=== PATIENT | male | born 1950 | race Caucasian/White ===

== ENCOUNTER → 2016-03-22 | Outpatient (CLI) | payer BC, MEDICARE, OTHER ==
[~2016-03-22] MED LIST: /FEXO18TA PO; /PANT40TA PO; ASPI81TA83 PO; LEVETIRACETAM PO; PANT40IN IV; PAXI20TA PO; PROP10TAB PO; TRIC145T19 PO; VERA80TA PO; XANA0.25 PO
--- NOTE | 2016-03-25 09:58 | SLEEPCENT ---
DATE OF PROCEDURE: 03/24/2016 REQUESTING PROVIDER: Madison Webb NP INTERPRETATION: Nocturnal polysomnography was performed for the titration of pressure therapy in this patient with obstructive sleep apnea syndrome, apnea-hypopnea index of 46.8. For testing, the patient was fit with a [employer] Simplus full face mask of medium size, 4 cm of water pressure were applied to the circuit and the lights were extinguished. 7 hours and 29 minutes of data were reviewed. There were 304 minutes of sleep identified. Sleep latency was prolonged at 70 minutes. Rapid eye movement (REM) latency was prolonged at 143 minutes. Sleep architecture improved late in the study with optimal pressure therapy and there was evidence of REM rebound appreciated. Overall sleep efficiency 68.2% due to a period of wake between 2:30 and 3:15. The patient's electrocardiogram (EKG) showed a sinus rhythm with an average heart rate of 63 beats per minute. Electroencephalogram (EEG) showed reasonably normal waveforms for awake and sleep. Respiratory events were found best palliated with a CPAP to a pressure of +9. CPAP tolerance was good. There was minimal limb activity. The remaining measures of sleep physiology were normal. IMPRESSION: 1. Obstructive sleep apnea syndrome (G47.33). RECOMMENDATIONS: Nightly use of pressure therapy at 9 cm of water.
== END ==
LOC: M SLEEP 20:00
PROVIDERS: ATTEND Nurse Practitioner Adult Health
DX: G47.33 Obstructive sleep apnea (adult) (pediatric) (principal)

== ENCOUNTER → 2016-09-24 | Outpatient (REF) | payer MEDICARE ==
[~2016-09-24] MED LIST changes: +CAND8TA PO; +FLOM5CAP PO; +NAPR500T3 PO
== END ==
LOC: M LAB REF 12:58
PROVIDERS: ATTEND Family Medicine
DX: E83.52 Hypercalcemia (principal)

== ENCOUNTER → 2016-10-21 | Outpatient (CLI) | payer MEDICARE ==
--- NOTE | 2016-10-21 12:36 | REP ---
Renal ultrasound, stat request for urinary obstruction: The kidneys are normal size. The right kidney measures 14.0 x 6.4 x 6.6 cm. Left kidney measures 13.2 by 5.4 x 4.7 cm. Renal cortical echogenicity is normal bilaterally. There is no hydronephrosis on the right on the left. There are no renal calculi. No renal masses or cysts. Bladder ultrasound: With color Doppler assessment there are bilateral ureteral jets into the urinary bladder. The bladder is incompletely distended, containing only 83 ml of 06/14 precluding evaluation of the bladder wall. The prostate appears enlarged. Impression: There is no hydronephrosis. There are bilateral ureteral jets into the urinary bladder. There are no renal calculi, masses or cysts. The bladder is incompletely distended, containing only 83 ml of fluid. The prostate appears enlarged. Signed by Eduardo Shah MD 10/21/2016 12:27 P
== END ==
LOC: M RAD 10:14
PROVIDERS: ATTEND Family Medicine
DX: N13.9 Obstructive and reflux uropathy, unspecified (principal)

== ENCOUNTER 2016-12-26 13:29 | Emergency (ER) | payer MEDICARE ==
[~2016-12-26] VITALS: Ht 162.6 cm; Wt 87.7 kg
[~2016-12-26 13:29] MED LIST changes: -CAND8TA PO; -FLOM5CAP PO; -NAPR500T3 PO
[2016-12-26 13:30] VITALS: BP 123/67
[2016-12-26] MEDS ORDERED: FLOM5CAP PO (13:44)
[2016-12-26] MEDS ORDERED: CAND8TA PO (13:44)
[2016-12-26] MEDS ORDERED: KETOROLAC 60 MG/2 ML VIAL (J1885) IM ONE (15:30)
[2016-12-26] MEDS ORDERED: NAPR500T3 PO (16:07)
== END 2016-12-26 16:13 | disposition home or self-care (01) ==
LOC: M ED 13:29
DX: S39.012A Strain of muscle, fascia and tendon of lower back, initial encounter (principal); F41.9 Anxiety disorder, unspecified; F32.9 Major depressive disorder, single episode, unspecified; E78.5 Hyperlipidemia, unspecified; K21.9 Gastro-esophageal reflux disease without esophagitis; X58.XXXA Exposure to other specified factors, initial encounter; Y92.9 Unspecified place or not applicable; Y99.9 Unspecified external cause status; Y93.9 Activity, unspecified; Z87.442 Personal history of urinary calculi; Z88.0 Allergy status to penicillin; Z87.891 Personal history of nicotine dependence; Z79.899 Other long term (current) drug therapy
CPT/HCPCS: 96372; 99282; J1885

== ENCOUNTER → 2017-01-26 | Outpatient (REF) | payer MEDICARE ==
[~2017-01-26] MED LIST changes: +CAND8TA PO; +FLOM5CAP PO; +NAPR500T3 PO
[2017-01-26 17:55] LABS: IONIZED CALCIUM 4.9 MG/DL (4.5-5.3)
== END ==
LOC: M LAB REF 16:30
PROVIDERS: ATTEND Family Medicine
DX: E83.52 Hypercalcemia (principal)

== ENCOUNTER → 2018-03-04 | Outpatient (CLI) | payer MEDICARE ==
[~2018-03-04] MED LIST changes: +FLOM0.4C39 PO; -FLOM5CAP PO; +NAPR-885 PO; -NAPR500T3 PO
--- NOTE | 2018-03-04 19:58 | REP ---
LEFT ELBOW, FOUR VIEWS: HISTORY: Pain. There is no acute fracture or dislocation. The joint space is normal in appearance. Impression: There is no acute fracture or dislocation. Electronically Signed by José Miguel Lima MD 03/04/2018 08:01 P
== END ==
LOC: M WUC 17:18
PROVIDERS: ATTEND Physician Assistant
DX: M25.522 Pain in left elbow (principal)

== ENCOUNTER → 2019-01-03 | Outpatient (CLI) | payer MEDICARE ==
[~2019-01-03] MED LIST changes: -/PANT40TA PO; +ASPI81TA26 PO; +ATAC8TAB PO; -CAND8TA PO; +CLON0.5T17 PO; +CLON1TAB17 PO; +KEPP1TAB PO; +METF500T13 PO; +PARO20TA4 PO; +PARO40TA3 PO; +PROT1TAB2 PO; +TRIC145T22 PO; +VERA40TA PO; +VERAP80TA PO; +ZOMI2.5T4 PO
[2019-01-03 14:56] LABS: BASO % 0.4 % (0.0-1.0); EOS # 0.2 10^3/uL (0.0-0.5); EOS % 2.8 % (0.0-3.0); LYMPH # 2.1 10^3/uL (1.5-5.0); LYMPH % 30.1 % (24.0-44.0); MEAN CORPUSCULAR HEMOGLOBIN 30.2 pg (27.0-33.0); MEAN CORPUSCULAR HGB CONC 34.1 g/dl (32.0-36.5); MEAN CORPUSCULAR VOLUME 88.7 fl (80.0-96.0); MONO # 0.5 10^3/uL (0.0-0.8); MONO % 7.8 % (0.0-5.0); NEUTROPHILS % 58.5 % (36.0-66.0); PLATELET COUNT, AUTOMATED 235 10^3/uL (150-450); RED BLOOD COUNT 4.96 10^6/uL (4.30-6.10); WHITE BLOOD COUNT 6.9 10^3/uL (4.0-10.0)
[2019-01-03 15:22] LABS: ALBUMIN 3.8 GM/DL (3.2-5.2); ALT/SGPT 28 U/L (12-78); BILIRUBIN,TOTAL 0.4 MG/DL (0.2-1.0); BLOOD UREA NITROGEN 24 MG/DL (7-18); C REACTIVE PROTEIN QUANTITATIV < 0.30 MG/DL (0.00-0.30); CALCIUM LEVEL 9.6 MG/DL (8.8-10.2); CARBON DIOXIDE LEVEL 27 MEQ/L (21-32); CHLORIDE LEVEL 105 MEQ/L (98-107); CREATININE FOR GFR 1.62 MG/DL (0.70-1.30); GLOMERULAR FILTRATION RATE 45.5 (>49); GLUCOSE, FASTING 308 MG/DL (70-100); POTASSIUM SERUM 4.5 MEQ/L (3.5-5.1); SODIUM LEVEL 138 MEQ/L (136-145); TOTAL PROTEIN 6.9 GM/DL (6.4-8.2)
[2019-01-04 09:37] LABS: CA19-9 TUMOR MARKER,CARBOHYDRA 8.2 U/ML (<35.0)
== END ==
LOC: M LAB 14:20
PROVIDERS: ATTEND Internal Medicine Gastroenterology
DX: R10.13 Epigastric pain (principal); R63.4 Abnormal weight loss

== ENCOUNTER → 2019-01-05 | Outpatient (CLI) | payer MEDICARE ==
[~2019-01-05] MED LIST changes: +GASTROGRAFIN SOLUTION 30ML (Q9963) As Ordered ONE; +ISOVUE-370 76% 100ML VIAL (Q9967) As Ordered ONE
--- NOTE | 2019-01-05 14:39 | REP ---
Epigastric pain and weight loss. COMPARISON: 03/24/2010 and 12/19/2005. CONTRAST: 100 mL Isovue-370. The lung bases are clear and unchanged. The liver, gallbladder, spleen, pancreas, adrenal glands, and kidneys are within normal limits. The abdominal and para-aortic regions are within normal limits. The bowel loops and their mesenteries are within normal limits. There is no free fluid or free air. There is no intra-abdominal mass or adenopathy. CT PELVIS: The bowel loops and their mesenteries are within normal limits. There is no mass or adenopathy. There is no free fluid or free air. Bone window technique throughout the exam shows the osseous structures to be within normal limits for the patient's age. IMPRESSION: CT findings, as described above, are within normal limits. Electronically Signed by Jaswant Davidson DO 01/05/2019 04:30 P
== END ==
LOC: M RAD 08:14
PROVIDERS: ATTEND Internal Medicine Gastroenterology
DX: R10.13 Epigastric pain (principal); R63.4 Abnormal weight loss
CPT/HCPCS: 74177; Q9963; Q9967

== ENCOUNTER 2019-01-10 09:33 | Day surgery (SDC) | payer MEDICARE ==
[~2019-01-10] VITALS: Ht 162.6 cm; Wt 91.2 kg
[~2019-01-10 09:33] MED LIST changes: -GASTROGRAFIN SOLUTION 30ML (Q9963) As Ordered ONE; -ISOVUE-370 76% 100ML VIAL (Q9967) As Ordered ONE
[2019-01-10] MEDS ORDERED: PROPOFOL 200 MG/20 ML VIAL As Ordered ONE (10:05)
[2019-01-10] MEDS ORDERED: LIDOCAINE 2% INJ 100 MG/5 ML SDV (FOR ANES.) As Ordered ONE (10:05)
[2019-01-10] MEDS ORDERED: NS 1,000 ML IV ONE (10:45)
[2019-01-10] MEDS ORDERED: fentaNYL 100 MCG/2 ML INJECTION (J3010) As Ordered ONE (11:07)
--- NOTE | 2019-01-10 11:47 | ROOR ---
Patient Name: Ganesh Guerra Procedure Date: 01/10/2019 11:07 AM Date of : 1950 Age: 68 Room: [facility] Gender: Male Note Status: Finalized Procedure: Upper Endoscopy + Biopsies Indications: Epigastric abdominal pain, Heartburn, Weight loss Providers: Davon Olivo MD Referring MD: Mio Haji MD Requesting Provider: Medicines: Monitored Anesthesia Care Complications: No immediate complications. Procedure: Pre-Anesthesia Assessment: - The heart rate, respiratory rate, oxygen saturations, blood pressure, adequacy of pulmonary ventilation, and response to care were monitored throughout the procedure. The Endoscope was introduced through the mouth, and advanced to the second part of duodenum. The upper GI endoscopy was accomplished without difficulty. The patient tolerated the procedure well. Findings: The Z-line was regular and was found 40 cm from the incisors. Multiple biopsies were obtained with cold forceps for evaluation to rule out Chen's Esophagus randomly at the gastroesophageal junction. A small hiatal hernia was present. No other significant abnormalities were identified in a careful examination of the stomach. Biopsies were taken with a cold forceps in the gastric antrum for Helicobacter pylori testing. The examined duodenum was normal. The exam was otherwise without abnormality. Impression: - Z-line regular, 40 cm from the incisors. - Small hiatal hernia. - Normal examined duodenum. - The examination was otherwise normal. - Multiple biopsies were obtained at the gastroesophageal junction. - Biopsies were taken with a cold forceps for Helicobacter pylori testing. - The examination was otherwise normal. Recommendation: - Patient has a contact number available for emergencies. The signs and symptoms of potential delayed complications were discussed with the patient. Return to normal activities tomorrow. Written discharge instructions were provided to the patient. - High fiber diet. - Discharge patient to home. - Continue present medications. - Await pathology results. - Telephone GI clinic for pathology results in 1 week. - Return to referring physician. - The findings and recommendations were discussed with the patient's family. Davon Olivo MD Davon Olivo MD 01/10/2019 11:47:16 AM Electronically signed by Davon Olivo MD Number of Addenda: 0 Note Initiated On: 01/10/2019 11:07 AM Estimated Blood Loss: Estimated blood loss: none.
--- NOTE | 2019-01-10 11:50 | ROOR ---
Patient Name: Ganesh Guerra Procedure Date: 01/10/2019 11:07 AM Date of : 1950 Age: 68 Room: [facility] Gender: Male Note Status: Finalized Procedure: Total Colonoscopy to Cecum + Cold Snare Polypectomy Indications: Change in bowel habits, Weight loss Providers: Davon Olivo MD Referring MD: Mio Haji MD Requesting Provider: Medicines: Monitored Anesthesia Care Complications: No immediate complications. Procedure: Pre-Anesthesia Assessment: - The heart rate, respiratory rate, oxygen saturations, blood pressure, adequacy of pulmonary ventilation, and response to care were monitored throughout the procedure. The Colonoscope was introduced through the anus and advanced to the cecum, identified by appendiceal orifice and ileocecal valve. The colonoscopy was performed without difficulty. The patient tolerated the procedure well. The quality of the bowel preparation was excellent. Findings: The perianal and digital rectal examinations were normal. Non-bleeding internal hemorrhoids were found during retroflexion. The hemorrhoids were small and Grade I (internal hemorrhoids that do not prolapse). Scattered small-mouthed diverticula were found in the recto-sigmoid colon, sigmoid colon and descending colon. Two sessile polyps were found in the transverse colon. The polyps were small in size. These polyps were removed with a cold snare. Resection and retrieval were complete. The exam was otherwise without abnormality on direct and retroflexion views. Impression: - Non-bleeding internal hemorrhoids. - Diverticulosis in the recto-sigmoid colon, in the sigmoid colon and in the descending colon. - Two small polyps in the transverse colon, removed with a cold snare. Resected and retrieved. - The examination was otherwise normal on direct and retroflexion views. - The exam was otherwise normal to the cecum. Recommendation: - Patient has a contact number available for emergencies. The signs and symptoms of potential delayed complications were discussed with the patient. Return to normal activities tomorrow. Written discharge instructions were provided to the patient. - High fiber diet. - Discharge patient to home. - Continue present medications. - Await pathology results. - Telephone GI clinic for pathology results in 1 week. - Return to referring physician. - The findings and recommendations were discussed with the patient's family. Davon Olivo MD Davon Olivo MD 01/10/2019 11:49:59 AM Electronically signed by Davon Olivo MD Number of Addenda: 0 Note Initiated On: 01/10/2019 11:07 AM Estimated Blood Loss: Estimated blood loss: none.
[2019-01-10 12:16] VITALS: BP 107/65
== END 2019-01-10 12:19 | disposition home or self-care (01) ==
LOC: M OPP 09:33
PROVIDERS: ATTEND Internal Medicine Gastroenterology
DX: K64.0 First degree hemorrhoids (principal); D12.3 Benign neoplasm of transverse colon; R19.4 Change in bowel habit; R63.4 Abnormal weight loss; K57.30 Diverticulosis of large intestine without perforation or abscess without bleeding; K44.9 Diaphragmatic hernia without obstruction or gangrene; R10.13 Epigastric pain; Z79.82 Long term (current) use of aspirin; Z79.84 Long term (current) use of oral hypoglycemic drugs; Z79.899 Other long term (current) drug therapy; Z88.0 Allergy status to penicillin; Z87.891 Personal history of nicotine dependence
CPT/HCPCS: 43239; 45385; 88305; J3010

== ENCOUNTER → 2019-07-06 | Outpatient (CLI) | payer MEDICARE ==
[2019-07-06 16:09] LABS: HEMATOCRIT 43.3 % (42.0-52.0); HEMOGLOBIN 14.3 g/dl (13.5-17.5); MEAN CORPUSCULAR HEMOGLOBIN 29.5 pg (27.0-33.0); MEAN CORPUSCULAR VOLUME 89.5 fl (80.0-96.0); PLATELET COUNT, AUTOMATED 219 10^3/uL (150-450); RED BLOOD COUNT 4.84 10^6/uL (4.30-6.10); WHITE BLOOD COUNT 5.6 10^3/uL (4.0-10.0)
[2019-07-06 16:54] LABS: ALBUMIN 3.6 GM/DL (3.2-5.2); BILIRUBIN,TOTAL 0.4 MG/DL (0.2-1.0); CALCIUM LEVEL 9.1 MG/DL (8.8-10.2); CHOLESTEROL RISK RATIO 3.075 (<5); CREATININE FOR GFR 1.54 MG/DL (0.70-1.30); GLOMERULAR FILTRATION RATE 48.2 (>49); POTASSIUM SERUM 4.3 MEQ/L (3.5-5.1); THYROID STIMULATING HORMONE 1.38 uIU/ML (0.358-3.740); TOTAL PROTEIN 6.6 GM/DL (6.4-8.2)
[2019-07-06 16:57] LABS: MALB URINE SIEMENS 22.2 MG/L; MAU/CREAT RATIO 7.1 MCG/MG (0.0-30.0)
== END ==
LOC: M WUC 12:05
PROVIDERS: ATTEND Family Medicine
DX: R53.83 Other fatigue (principal); E11.22 Type 2 diabetes mellitus with diabetic chronic kidney disease; E11.65 Type 2 diabetes mellitus with hyperglycemia; E78.5 Hyperlipidemia, unspecified; N18.9 Chronic kidney disease, unspecified

== ENCOUNTER → 2019-12-06 | Outpatient (CLI) | payer MEDICARE ==
--- NOTE | 2019-12-08 06:52 | EEG ---
DATE: 12/06/2019 REFERRING PHYSICIAN: Not provided and it states complete info on CDS. 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 EEG #: [id number] HISTORY: The patient is a 69-year-ol man who had a seizure after surgery, more headaches, and increased fatigue. A list of his medications was not provided. TECHNICAL DESCRIPTION: This digital electroencephalogram (EEG) was recorded by 21 scalp, ear and two electrocardiogram (EKG) electrodes and was reviewed in bipolar and referential montages following reformatting in 10-20 international electrode placement system. INTERPRETATION: The patient was noted to be in awake and drowsy states during this electroencephalogram (EEG). Resting and awake background rhythm consisted of well-formed posterior dominant with anterior/posterior gradient comprising of 9 Hz alpha activity measuring 15-40microvolts in amplitude, which was symmetric and reactive to eye opening. Attenuation of posterior dominant rhythm was seen during transition to drowsiness. Stage 1 and 2 sleep was reviewed and was symmetric bilaterally. Hyperventilation could not be performed. Photic stimulation remained unremarkable. Electrocardiogram (EKG) revealed normal sinus rhythm. No focal, lateralizing or epileptiform abnormalities were seen. No relevant clinical activity was noted. CONCLUSION: This electroencephalogram (EEG) in awake, drowsy state, stage 1 and 2 is within normal limits. [facility]
== END ==
LOC: M SLEEP 09:14
PROVIDERS: ATTEND Nurse Practitioner Acute Care
DX: G40.909 Epilepsy, unspecified, not intractable, without status epilepticus (principal)

== ENCOUNTER → 2020-07-16 | Outpatient (CLI) | payer MEDICARE ==
[~2020-07-16] MED LIST changes: +VERA80TA3 PO; -VERAP80TA PO
--- NOTE | 2020-07-16 14:16 | REP ---
INDICATION: COUGH COMPARISON: 08/16/2015, 01/26/2014. TECHNIQUE: PA/Lateral FINDINGS: Lungs: Clear, no infiltrate. Heart: Normal in size. Mediastinum: Mediastinal silhouette unremarkable. Pleural angles: Unremarkable.. Bones and soft tissues: Unremarkable. Metallic plate and screws are seen in the lower cervical spine. IMPRESSION: No acute pulmonary disease. <Electronically signed by Eduardo Mckeon > 07/16/20 0430
== END ==
LOC: M WUC 12:03
PROVIDERS: ATTEND Family Medicine
DX: R05 Cough (principal)

== ENCOUNTER → 2020-10-18 | Outpatient (REF) | payer MEDICARE | LOC: M WUC 15:21 | PROVIDERS: ATTEND Physician Assistant | DX: R30.0 Dysuria (principal) ==

== ENCOUNTER → 2020-11-29 | Outpatient (CLI) | payer MEDICARE ==
[2020-11-29 16:22] LABS: CALCIUM LEVEL 8.9 MG/DL (8.8-10.2); CREATININE FOR GFR 1.42 MG/DL (0.70-1.30); GLOMERULAR FILTRATION RATE 52.6 (>49); POTASSIUM SERUM 4.3 MEQ/L (3.5-5.1)
== END ==
LOC: M WUC 12:04
PROVIDERS: ATTEND Urology
DX: R39.198 Other difficulties with micturition (principal)

== ENCOUNTER → 2020-12-03 | Outpatient (CLI) | payer MEDICARE ==
[~2020-12-03] MED LIST changes: +BACT800T5 PO; +ISOVUE-370 76% 100ML VIAL As Ordered ONE
== END ==
LOC: M RAD 16:42
PROVIDERS: ATTEND Urology
DX: R31.0 Gross hematuria (principal); J47.9 Bronchiectasis, uncomplicated
CPT/HCPCS: 74178; Q9967

== ENCOUNTER 2020-12-27 20:13 | Emergency (ER) | payer MEDICARE, OTHER ==
[~2020-12-27] VITALS: Ht 162.6 cm; Wt 84.5 kg
[~2020-12-27 20:13] MED LIST changes: -BACT800T5 PO
--- OUTSIDE RECORDS SUMMARY | 2020-12-27 20:26 | CCD ---
Author Author [facility] Organization [facility] Address Unknown Phone Unavailable Care Team Providers Care Major Assembly Inspector Name Role Phone Sudhir Rosenberg Unavailable PROBLEMS Type Condition ICD9-CM Code [id number] Code Onset Dates Condition S tatus W/U Status Risk SNOMED Code Notes Problem Post-void dribbling N39.43 Active confirmed 582338366 ALLERGIES Allergen (clinical drug ingredient) Drug/Non Drug Allergy do cumented on EMR Reaction Allergy Type Onset Date Status penicillin V Penicillin Unknown Drug Allergy Active ENCOUNTERS from 1950 to 2020-12-19 Encounter Location Date Provider Diagnosis [facility] Urology [phone] [place] [address] Dec, Sudhir Rosenberg IMMUNIZATIONS No Information SOCIAL HISTORY Tobacco Use: Social History Observation Description Date Details (start date - stop date) Former Smoker Sex Assigned At : Social History Observation Description Sex Assigned At Unknown Alcohol Screening: Question Answer Notes Did you have a drink containing alcohol in the past year? No Points 0 Interpretation Negative Tobacco Use: Question Answer Notes Are you a: former smoker quit 25 yrs ago REASON FOR REFERRAL No Information VITAL SIGNS No information MEDICATIONS Medication SIG (Take, Route, Frequency, Duration) Notes Start Da te End Date Status metFORMIN HCl 500 MG 1 tablet with a meal Orally bid Active PARoxetine HCl 40 MG 1 tablet in the morning Orally Once a day f or 30 day(s) Active Fluticasone Propionate 50 MCG/ACT 1 spray in each nost ril Nasally Once a day for 30 day(s) Not-Taking Aspir-Low 81 MG 1 tablet Orally Once a day for 30 day(s) Active Protonix Not-Taking tylenol 1 tab Oral for 14 days No t-Taking Glimepiride 1 MG 1 tablet with breakfast or t he first main meal of the day Orally Once a day for 30 day(s) Not-Taking Rolanda ODT Not-Taking Naproxen 500 MG 1 tablet with food or milk as needed Orally every 12 hrs Active Doxycycline Monohydrate 100 MG 1 capsule Orally Once a day for 10 day (s) Not-Taking Tricor Not-Taking levETIRAcetam 500 MG 1 tablet Orally every 12 hrs for 30 day(s) Active Tamsulosin HCl 0.4 MG 1 capsule Orally Once a day for 30 day(s) Active Paxil Not-Taking ZOLMitriptan 5 MG 1 tablet Orally Once a day for 1 day(s) Active One Touch Delica Active Fenofibrate 145 MG 1 tablet Orally Once a day for 30 day(s) Active clonazePAM 0.5 MG 1 tablet at bedtime Orally Once a day Active Pantoprazole Sodium 40 MG 1 tablet Orally Once a day for 30 day(s) Active Propranolol HCl Not-Takin g Candesartan Cilexetil 8 MG 1 tablet Orally Once a day for 30 day(s) Active PROCEDURES No Information RESULTS No Results REASON FOR VISIT 12/24/2020 appt MEDICAL (GENERAL) HISTORY Type Description Date Medical History acute sinusitis Medical History GERD Medical History hyperlipidemia Medical History depression Medical History reactive brain tissue Medical History hyperglycemia Medical History anxiety Medical History hiatal hernia Medical History Lower tract symptoms Medical History History of stones Medical History Gross hematuria times at least once Surgical History laminectomy L4-5 Surgical History fusion C5-7 Surgical History ORIF left foot Surgical History left knee surgery Surgical History carpal tunnel release Surgical History polyps removed from throat Surgical History brain SX 07-18-2010 Goals Section No Information Health Concerns No Information MEDICAL EQUIPMENT No Information MENTAL STATUS No Information FUNCTIONAL STATUS No Information ASSESSMENTS No Information PLAN OF TREATMENT Next Appt Details Provider Name:Sudhir Rosenberg, 2020-12-14 1 09:00:00 AM, [address], , [place], [address], Insurance Providers Payer Name Payer Address Payer Phone Insured Name Patient Relati onship to Insured Coverage Start Date Coverage End Date [facility] [address] [address] [facility] [phone] Ganesh Guerra self
--- OUTSIDE RECORDS SUMMARY | 2020-12-27 20:26 | CCD | Continuity of Care Document ---
Author Author Ganesh ARGUELLO PA Organization Unknown Address [address] [place] [address] Phone [phone] Care Team Providers Care Telecommunication Engineer Name Role Phone Mio Haji MD [facility] [phone] Problems Active Problems Provider Date Hyperlipidemia Onset: Depressive disorder Onset: Gastroesophageal reflux disease Onset: 0 Acute sinusitis Onset: Social History Type Date Description Comments Sex Unknown Tobacco Use Start: Unknown End: Unknown Quit 25 Y RS AGO Smoking Status Reviewed: 10/18/20 Quit 25 YRS AGO ETOH Use Occasionally consumes alcohol Allergies, Adverse Reactions, Alerts Active Allergies Reaction Severity Comments Date Penicillin SWELLING 03/15/2010 Medications Active Medications SIG Qnty Indications Ordering Provide r Date Clonazepam 0.5mg Tablets Dispers Take 1/2 tab am and PM as directed 5tabs Foreign Finley JR., M.D. 02/05/2018 Paroxetine HCL 40mg Tablets 1 By Mouth Every Day 90tabs Foreign Finley JR., M.D. 12/2015 Onetouch Delica Plus Lancets Extra Fine 33G Plus 33G Misc Use To Test Two Times A Day Unknown Onetouch Delica Lancing Dev Misc Use as Directed Unknown Onetouch Verio Strips Test Two Times A Day Unknown Tamsulosin HCL 0.4mg Capsules Take 2 Capsules Daily 1/2 Hour After The Same Meal Unkn own Fenofibrate 145mg Tablets Mio Haji MD Levetiracetam 500mg Tablets Unknown Metformin HCL 1000mg Tablets Mio Haji MD Candesartan Cilexetil 8mg Tablets Unknown Glimepiride 1mg Tablets Take One Tablet By Mouth Every Morning With Breakfast Each Day Unkn own Fluticasone Propionate 50mcg/Act Suspension Mio Haji MD 00 Pantoprazole Sodium 40mg Tablets Mio Erazo MD Tylenol Extra Strength 500mg Tablets Unknown Rolanda Allergy Unknown 0 Aspir-[address] qd Unknown Propranolol HCL Unknown 0 Paxil Unknown Tricor Unknown Protonix Unknown Immunizations Description No Information Available Vital Signs Date Vital Result Comment 10/18/2020 12:11pm BP Systolic 116 mmHg BP Diastolic 74 mmHg Heart Rate 102 /min Respiratory Rate 16 /min O2 % BldC Oximetry 97 % Body Temperature 96.2 F Weight 186.00 lb Height 64 inches 5'4" BMI (Body Mass Index) 31.9 kg/m2 Pain Level 9 07/29/2019 2:11pm BP Systolic 96 mmHg BP Diastolic 63 mmHg Heart Rate 88 /min Respiratory Rate 17 /min O2 % BldC Oximetry 97 % Body Temperature 98.0 F Weight 195.00 lb Height 64 inches 5'4" BMI (Body Mass Index) 33.5 kg/m2 Pain Level 7 Results Test Acquired Date Facility Test Result H/L Range Note Laboratory test finding 10/18/2020 [place] [address] [phone] Urine Culture <pending> Procedures Date Code Description Status 10/18/2020 51272 Office/Outpatient Established Mo d MDM 30-39 Min Completed Medical Devices Description No Information Available Encounters Type Date Location Provider Dx Diagnosis Office Visit 10/18/2020 12:45p Main Office SHANA Pinedo R30.0 Dysuria E11.9 Type 2 diabetes mellitus wit hout complications Assessments Date Code Description Provider 10/18/2020 R30.0 Dysuria SHANA Pinedo 10/18/2020 E11.9 Type 2 diabetes mellitus without complications SHANA Pinedo Plan of Treatment No Information Available Functional Status Description No Information Available Mental Status Description No Information Available Referrals Description No Information Available
--- OUTSIDE RECORDS SUMMARY | 2020-12-27 20:26 | CCD | Continuity of Care Document ---
Author Author Ganesh ARGUELLO PA Organization Unknown Address [address] [place] [address] Phone [phone] Care Team Providers Care Provider Contracting Consultant Name Role Phone Mio Haji MD [facility] [phone] [facility] [phone] Problems Active Problems Provider Date Hyperlipidemia Onset: [...] H/L Range Note Laboratory test finding 10/18/[address] [address] [phone] Urine Culture FULL REPORT IN L <SEE NOTE> Normal 1, 2 1 No Rx 2 FULL REPORT IN LAB NOTES (eC W and Medent). NO GROWTH Procedures Date Code Description Status 10/18/2020 90098 Office/Outpatient Established Mo d MDM 30-39 Min [...] Mental Status Description No Information Available Referrals Refer to Dr Reason for Referral Status Appt Date [facility] [place] ongoing nocturia and reoccurring re nal stones. Created [address] [place] [address] [phone]
--- OUTSIDE RECORDS SUMMARY | 2020-12-27 20:26 | CCD ---
Author Author [facility] Organization [facility] Address Unknown Phone Unavailable Care Team Providers Care Latin Teacher Name Role Phone Azulinder Sudhir Unavailable PROBLEMS Type Condition ICD9-CM Code [id number] Code Onset Dates Condition S tatus W/U Status Risk SNOMED Code Notes Problem Post-void dribbling N39.43 Active confirmed [id number] ALLERGIES Allergen (clinical drug ingredient) Drug/Non Drug Allergy do cumented on EMR Reaction Allergy Type Onset Date Status penicillin V Penicillin Unknown Drug Allergy Active ENCOUNTERS from 1950 to 2020-12-06 Encounter Location Date Provider Diagnosis [facility] [address] [phone] [place] [address] Nov, Sudhir Rosenberg Slow urinary stream R39.198 ; Post-void dribbling N39.43 ; Gross hematuria R31.0 and History of kidney stones Z87.442 IMMUNIZATIONS No Information SOCIAL HISTORY Tobacco Use: [...] REASON FOR REFERRAL No Information VITAL SIGNS Weight 190.4 lbs Nov, Height 64 in Nov, BMI 32.68 kg/m2 Nov, Heart Rate 81 /min Nov, Respiratory Rate 18 /min Nov, Temperature 97.6 degrees Fahrenheit Nov, Oximetry 95 Nov, Blood pressure systolic 132 mm Hg Nov, Blood pressure diastolic 78 mm Hg Nov, MEDICATIONS Medication SIG (Take, Route, Frequency, Duration) [...] 30 day(s) Active PROCEDURES No Information RESULTS Component Value Reference Range Basic Metabolic Profile (BMP) Reviewed date:11/30/2020 14:28:49 Interpretation: Performing Lab:[facility], [facility] [address] [facility] [address] , ,[place] [address] GLUCOSE, FASTING 159 70-100 BLOOD UREA NITROGEN 25 7-18 CREATININE FOR GFR 1.42 0.70-1.30 GLOMERULAR FILTRATION RATE 52.6 >49 SODIUM LEVEL 141 136-145 POTASSIUM SERUM 4.3 3.5-5.1 CHLORIDE LEVEL 107 98-107 CARBON DIOXIDE LEVEL 22 21-32 CALCIUM LEVEL 8.9 8.8-10.2 CT ABD & Pelvis w/o FOL by ALEJANDRA Reviewed date:12/06/2020 11:32:13 Interpretation: Performing Lab:[facility],[address]], ,[place] [address] REASON FOR VISIT nocturia reoccurring renal stones MEDICAL (GENERAL) HISTORY Type Description Date Medical [...] No Information FUNCTIONAL STATUS No Information ASSESSMENTS Encounter Date Diagnosis Assessment Notes Treatment Notes Treatm ent Clinical Notes Nov, Slow urinary stream (ICD-10 - R39.198) Nov, Post-void dribbling (ICD-10 - N39.43) Nov, Gross hematuria (ICD-10 - R31.0) Nov, History of kidney stones (ICD-10 - Z87.442) PLAN OF TREATMENT Next Appt Details Local cystoscopy and CT Reason:History o f stones, gross hematuria, lower urinary tract symptoms Provider Name:Sudhir Rosenberg, 2020-12- 1 09:00:00 AM, [address], , [place], [address], Follow Up:Local cystoscopy and CTHistory of stones, gross hematuria, lower urinary tract symptoms Insurance Providers Payer Name Payer Address Payer Phone Insured Name Patient Relati onship to Insured Coverage Start Date Coverage End Date [facility] [address] [address] [facility] [phone] Ganesh Guerra self
--- OUTSIDE RECORDS SUMMARY | 2020-12-27 20:26 | CCD | Continuity of Care Document ---
Author Author Ganesh HERNANDEZ M.D. Organization Unknown Address [id number] [address] Phone [phone] Care Team Providers Care Manager Emergency Name Role Phone Mio Hernandez MD AUTM [phone] Filomena Dozier OD AUTM Unavailable Austin Fung MD AUTM [phone] Davon Olivo MD AUTM [phone] Rochelle Joseph MD AUTM [phone] Problems Active Problems Provider Date Eruption Onset: 11/06/2010 Intracranial tumor Onset: 09/05/2010 Fatigue Onset: 05/04/2010 Anxiety Onset: 04/18/2010 Dyspnea Onset: 03/29/2010 Disorder characterized by fever Onset: 0 03/26/2010 Inguinal hernia Onset: 03/25/2010 Tremor Onset: 01/03/2010 Male erectile disorder Onset: 05/29/2009 Allergic rhinitis Onset: 04/29/2008 Hyperlipidemia Onset: 04/07/2008 Mixed hyperlipidemia Onset: 09/14/2007 Gastroesophageal reflux disease Onset: 0 09/14/2007 Chronic back pain Onset: 09/14/2007 Blood glucose abnormal Onset: 09/14/2007 Osteoarthritis Onset: 08/11/2007 Diabetes mellitus type 2 Onset: 00 Gastroesophageal reflux disease Mio Hernandez M.D. Onset: 04/06/2015 Social History Type Date Description Comments Sex Unknown ETOH Use Rarely consumes alcohol Tobacco Use Start: Unknown End: Unknown Patient is a former smoker Quit 1993, 25 yrs, 3/4 ppd. Allergies, Adverse Reactions, Alerts Active Allergies Reaction Severity Comments Date Sudafed Mild 02/11/2011 Penicillin Hives 08/15/2014 Wellbutrin Mild 02/11/2011 Relafen Mild 02/11/2011 Nasonex Mild 02/11/2011 Penicillins Mild 02/11/2011 Medications Active Medications SIG Qnty Indications Ordering Provide r Date Onetouch Verio Strips test twice a day dx e11.9 e11.22 200units Mio Hernandez M.D. 07/23/2020 Flonase Allergy Relief 50mcg/Act Suspension 2 sprays per nostril every in the evening 29.7ml Mio Hernandez M.D. 07/16/2020 Triamcinolone Acetonide 0.5% Cream apply twice a day as directed - do not overuse, risk of atropy. 45gm Mio Hernandez M.D. 10/05/2019 Blood Glucose Monitoring System W/Device Kit as discussed. dx abnormal blood sugars 1units Justo Hernandez M.D. 07/04/2019 Procto-Med HC 2.5% Cream apply to anus for hemorrhoids bid prn pain 30gm Mio Hernandez M.D. Lancet Device Misc as direct ed 1unhalina Hernandez M.D. 07/04/2019 Lancets Micro Thin 33G Thin 33G Mi sc 2 times a day, E11.9 100units Mio Hernandez M.D. 020 Amaryl 1mg Tablets 1 tab po every morning with breakfast each day 90tabs Mio Hernandez M.D. Candesartan Cilexetil 8mg Tablets 1 by mouth every day 30tabs Mio Hernandez M.D. 08/11/2018 Cpap M25.562 Mio Hernandez M.D. 08/14 Metformin HCL 1000mg Tablets take one tablet by mouth twice a day 180tabs Mio Hernandez M.D. 05/07/2016 Aspir-[address] 1 by mouth every day 100tabs ROSALINDA Rodriguez 08/15/2014 Paxil 40mg Tablets 1 1/2 by mouth every day 90tabertrand Hernandez M.D. 08/15/[address] 1 tab by mouth twice a day 180tabertrand Hernandez M.D. 08/15/2014 Tricor 145mg Tablets 1 by mouth every day 90tabs Mio Hernandez M.D. 08/15/2014 Levetiracetam 500mg Tablets 1 1/2 tab b.i.d 135tabertrand Hernandez M.D. 08/15/2014 Tamsulosin HCL 0.4mg Capsules 2 daily each evening 60caps Mio Hernandez M.D. 08/15/2014 Clonazepam 0.5mg Tablets take 1/2 tab every morning and 1 tab every evening. 45tabertrand Hernandez M.D. 08/09/2014 Naproxen 500mg Tablets as needed. 30tabs Unknown Administration Of Flu Vaccine Inj ection Unknown Medications Administered in Office Medication SIG Qnty Indications Ordering Provider Date Covid-19 vaccine, Unspecified Inj ection Unknown 05/05/2020 Covid-19 vaccine, Unspecified Inj ection Unknown 04/15/2020 Administration Of Flu Vaccine Inj wilbert Hernandez M.D. 01/11/2019 Administration Of Flu Vaccine Inj davidion Mio Hernandez M.D. 02/16/2018 Administration Of Flu Vaccine Inj davidion Mio Hernandez M.D. 01/26/2017 Administration Of Flu Vaccine Inj davidion Mio Hernandez M.D. 01/22/2016 Administration Of Flu Vaccine Inj davidion Mio Hernandez M.D. 01/04/2015 Immunizations CPT Code Status Date Vaccine Lot # U-Flu Given 01/20/2020 Influenza,Unspecified [id number] Given 01/11/2019 Influenza Vaccin e Quadrivalent Preser/Antibiotic Free Im Use [id number] 79039 Given 02/16/2018 Influenza Virus Vaccine, Quadrivalent ([id number]), Derived From 6 Given 01/26/2017 Influenza Vaccin e Quadrivalent Preser/Antibiotic Free Im Use [id number] Q2037 Given 01/22/2016 Fluvirin Virus Vaccine 33477 01 [id number] Given 01/04/2015 Fluvirin Virus Vaccine 76005 01 85386 Given 12/29/2013 Influenza Virus Vaccine 77284 Given 12/16/2012 Influenza Virus Vaccine 07435 Given 12/03/2011 Influenza Virus Vaccine 56597 Given 01/13/2011 Influenza Virus Vaccine 29652 Given 12/25/2009 Influenza Virus Vaccine 56579 Given 12/14/2009 Influenza Virus Vaccine 54333 Given 03/16/2005 Adacel- Tetanus Diphtheria P ertussis (Age64 & Under) Vital Signs Date Vital Result Comment 09/25/2020 3:58pm BP Systolic 111 mmHg BP Diastolic 69 mmHg Heart Rate 87 /min Height 64 inches 5'4" Weight 189.00 lb BMI (Body Mass Index) 32.4 kg/m2 07/16/2020 10:16am BP Systolic 120 mmHg BP Diastolic 70 mmHg Heart Rate 89 /min Height 64 inches 5'4" Weight 194.12 lb O2 % BldC Oximetry 97 % RM Air BMI (Body Mass Index) 33.3 kg/m2 Results Test Acquired Date Facility Test Result H/L Range Note Laboratory test finding 07/16/2020 [facility], Reconciliation Manager: Dr Foreign [address] [place], [place] [id number] [phone] PSA 1.26 ng/mL <4.00 1 A1c 07/16/2020 [facility] , Reconciliation Manager: [facility] [place] [id number] [phone] Hba1c 5.9 % High <5.7 2 Est Avg Glucose 123 mg/dL High 60 - 110 Comprehensive Chem Profile 07/16/2020 [facility], Reconciliation Manager: Dr Foreign [place] [employer], [place] [id number] [phone] Glucose 128 mg/dL High 74 - 99 3 BUN 25 mg/dL High 7 - 18 Creatinine 1.4 mg/dL High 0.6 - 1.3 Sodium 141 mEq/L 136 - 145 Potassium 4.3 mEq/L 3.5 - 5.1 Chloride 103 mEq/L 98 - 107 Carbon Dioxide 23 mEq/L 21 - 32 Calcium 9.6 mg/dL 8.5 - 10.1 Alk. Phosphatase 41 mg/dL Low 46 - 116 Total Bilirubin 0.4 mg/dL 0.2 - 1.0 Ast (Sgot) 20 U/L 15 - 37 Alt (SGPT) 28 U/L 12 - 78 Albumin 4.1 g/dL 3.4 - 5.0 Total Protein 7.1 g/dL 6.4 - 8.2 A/G Ratio 1.37 CALC 1.00 - 1.90 GFR 50 mL/min Low >60 GFR >= 60 mL/min >60 4 Lipid Profile 07/16/2020 [facility] , Reconciliation Manager: [place] [address] [phone] Cholesterol 169 mg/dL 131 - 200 Triglycerides 117 mg/dL 30 - 150 HDL Cholesterol 72 mg/dL High 35 - 60 LDL (Calculated) 74 CALC 50 - 159 Laboratory test finding 07/16/2020 [facility], Reconciliation Manager: [place] [address] [phone] Thyroid Stimulating Hormone 2.20 uIU/mL 0.3 6 - 3.74 Microalbumin/Creatinine Urine 07/16/2020 [facility], Reconciliation Manager: [place] [address] [phone] Microalbumin Urine 10.8 mg/L 1.3 - 20.0 Urine Creatinine 219.3 mg/dL High 30.0 - 125.0 Microalb/Creat Ratio 4.9 ug/mg 0.0 - 30.0 1 This assay was performed on the Siemens Dimension EXL using the B- Galactosidase/CPRG methodology and should not be compared interchangeably with other methods. The PSA should not be used alone as a screening test for the presence or absence of malignant disease. 2 Lab Result Notes: Pre-Diabetes 5.7 - 6.4 % Diabetes = or > 6.5% 3 100-125 mg/dL PRE-DIABET ES/FASTING >126 mg/dL DIABETES/FASTING 4 CHRONIC KIDNEY DISEASE STAGI NG PER NKF STAGE I & II GFR >= 60 NORMAL TO MILDLY DECREASED STAGE III GFR 30-59 MODERATELY DECREASED STAGE IV GFR 15-29 SEVERELY DECREASED STAGE V GFR <15 VERY LITTLE GFR LEFT ESRD GFR <15 ON RANCH RIDER Procedures Date Code Description Status 09/25/2020 00574 Office/Outpatient Established Lo w MDM 20-29 Min Completed 07/16/2020 36728 Est Prevent Med (65Yrs&Ovr) Comp leted 01/10/2019 [id number] Colonoscopy Completed 06/05/2017 [id number] Diabetic Retinal Eye Exam Comple ori 01/26/2008 [id number] Colonoscopy Completed Medical Devices Description No Information Available Encounters Type Date Location Provider Dx Diagnosis Office Visit [facility]2020 [facility] R30.0 Dysuria R00.2 Palpitations F41.9 Anxiety disorder, unspecifie d M25.562 Pain in left knee N40.0 Benign prostatic hyperplasia without lower urinry tract symp G47.33 Obstructive sleep apnea (anette lt) (pediatric) E11.9 Type 2 diabetes mellitus wit hout complications K21.9 Gastro-esophageal reflux dis ease without esophagitis M54.5 Low back pain G40.89 Other seizures N18.30 Chronic kidney disease, stag e 3 unspecified D33.2 Benign neoplasm of brain, un specified Office Visit 07/16/2020 10[facility] 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 09/25/2020 R00.2 Palpitations Mio Hernandez M.D. 09/25/2020 F41.9 Anxiety disorder, unspecified Justo Hernandez M.D. 09/25/2020 M25.562 Pain in left knee Mio Hernandez M.D. 09/25/2020 N40.0 Benign prostatic hyp erplasia without lower urinary tract symptoms Mio Hernandez M.D. 09/25/2020 G47.33 Obstructive sleep apnea (adult) (pediatric) Mio Hernandez M.D. 09/25/2020 E11.9 Type 2 diabetes mellitus without complications Mio Hernandez M.D. 09/25/2020 K21.9 Gastro-esophageal reflux disease without esophagitis Mio Hernandez M.D. 09/25/2020 M54.5 Low back pain Mio Hernandez M.D. 09/25/2020 G40.89 Other seizures Mio Hernandez M.D. 09/25/2020 N18.30 Chronic kidney disease, stage 3 unspecified Mio Hernandez M.D. 09/25/2020 D33.2 Benign neoplasm of brain, unspec ified Mio Hernandez M.D. 07/16/2020 N40.0 Benign prostatic hyp erplasia without lower urinary tract symptoms Mio Hernandez M.D. 07/16/2020 Z13.89 Encounter for screening for othe r disorder Mio Hernandez M.D. 07/16/2020 Z00.00 Encounter for genera l adult medical examination without abnormal findings Mio Hernandez M.D. 07/16/2020 G47.33 Obstructive sleep apnea (adult) (pediatric) Mio Hernandez M.D. 07/16/2020 E11.9 Type 2 diabetes mellitus without complications Mio Hernandez M.D. 07/16/2020 E11.22 Type 2 diabetes mellitus with di abetic chronic kidney diseas Mio Hernandez M.D. 07/16/2020 K21.9 Gastro-esophageal reflux disease without esophagitis Mio Hernandez M.D. 07/16/2020 M54.5 Low back pain Mio Hernandez M.D. 07/16/2020 G40.89 Other seizures Mio Hernandez M.D. 07/16/2020 F41.9 Anxiety disorder, unspecified Justo Hernandez M.D. 07/16/2020 E78.5 Hyperlipidemia, unspecified Edwige Hernandez M.D. 07/16/2020 N18.30 Chronic kidney disease, stage 3 unspecified Mio Hernandez M.D. 07/16/2020 N40.0 Benign prostatic hyp erplasia without lower urinary tract symptoms Mio Hernandez M.D. 07/16/2020 R09.82 Postnasal drip Mio Hernandez M.D. 07/16/2020 R05 Cough Mio Hernandez M.D. Plan of Treatment Future Appointment(s):* 01/22/2021 9:50 am - Lab Schedule at [facility] * 01/23/2021 3:00 pm - Mio [facility] M.D. at [facility] 09/25/2020 - Mio Hernandez M.D.* R30.0 Dysuria * R00.2 Palpitations * F41.9 Anxiety disorder, unspecified * M25.562 Pain in left knee * N40.0 Benign prostatic hyperplasia without lower urinry tract symp * G47.33 Obstructive sleep apnea (adult) (pediatric) * E11.9 Type 2 diabetes mellitus without complications * K21.9 Gastro-esophageal reflux disease without esophagitis * M54.5 Low back pain * G40.89 Other seizures * N18.30 Chronic kidney disease, stage 3 unspecified * D33.2 Benign neoplasm of brain, unspecified * * Comments:* 1. Dysuria: We discussed about possible UTI. He is going to obtain lab work. We will monitor..2. Palpitations: Controlled. We will continue to monitor.3. Anxiety disorder: Doing generally well per over the last couple of months on current regimen. He follows up with Dr. English and will continue appropriate follow up.4. Left knee pain: Increased since surgery. He is recommended to use Tylenol Arthritis. 5. Benign prostatic hyperplasia without lower urinry tract symp: Doing well on Tamsulosin, will continue and monitor.6. MELITON: He has not been using the CPAP and is aware of complications of untreated MELITON. We will continue to monitor.7. Type 2 diabetes mellitus without complications: Improved HgbA1c prior. MANDIE was negative. Continue present regimen. We will continue to monitor.8. Gastro- esophageal reflux disease without esophagitis: Requires Protonix for symptom management with history of small hiatal hernia on EGD in December [address] Davon Olivo and will obtain a new one appropriately.9. Low back pain: Chronic issue, stable. Recent x-ray at the urgent care in December 2019 revealed degenerative spondylosis with disc space narrowing at multiple leve ls. We will continue to monitor.10. Other seizures: No recent episode of any seizures and is on Keppra. He sees Neurology at [facility] and will continue appropriate follow up.11. Chronic kidney disease, stage 3: Improved kidney function. He should be careful with NSAIDs usage and will continue to avoid nephrotoxins. 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 He follows up with neurosurgery in [place] and will continue appropriately.Ongoing cares: I am going to see him again in 4-5 months with CMP, lipids, CBC and A1c. If he has new problems or issues sooner he will let us know. Functional Status Description No Information Available Mental Status Description No Information Available Referrals Description No Information Available
--- OUTSIDE RECORDS SUMMARY | 2020-12-27 20:26 | CCD ---
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 Name Role Phone Jumana Haji MD Unavailable Unavailable Jumana Haji MD Unavailable Unavailable Jumana Haji MD Unavailable Unavailable Jumana Haji MD Unavailable Unavailable Jumana Haji MD Unavailable Unavailable Jumana Haji MD Unavailable Unavailable Jumana Haji MD Unavailable Unavailable Jumana Haji MD Unavailable Unavailable Jumana Haji MD Unavailable Unavailable Jumana Haji MD Unavailable Unavailable Jumana Haji MD Unavailable Unavailable Jumana Haji MD Unavailable Unavailable Jumana Haji MD Unavailable Unavailable Jumana Haji MD Unavailable Unavailable Jumana Haji MD Unavailable Unavailable Jumana Haji MD Unavailable Unavailable Jumana Haji MD Unavailable Unavailable Jumana Haji MD Unavailable Unavailable Jumana Haji MD Unavailable Unavailable Jumana Haji MD Unavailable Unavailable Jumana Haji MD Unavailable Unavailable Jumana Haji MD Unavailable Unavailable Jumana Haji MD Unavailable Unavailable Jumana Haji MD Unavailable Unavailable Jumana Haji MD Unavailable Unavailable Jumana Haji MD Unavailable Unavailable Jumana Haji MD Unavailable Unavailable Jumana Haji MD Unavailable Unavailable Jumana Haji MD Unavailable Unavailable Jumana Haji MD Unavailable Unavailable Jumana Haji MD Unavailable Unavailable Jumana Haji MD Unavailable Unavailable Jumana Haji MD Unavailable Unavailable Jumana Haji MD Unavailable Unavailable Jumana Haji MD Unavailable Unavailable Jumana Haji MD Unavailable Unavailable Jumana Haji MD Unavailable Unavailable Jumana Haji MD Unavailable Unavailable Jumana Haji MD Unavailable Unavailable Jumana Haji MD Unavailable Unavailable Jumana Haji MD Unavailable Unavailable Jumana Haji MD Unavailable Unavailable Jumana Haji MD Unavailable Unavailable Jumana Haji MD Unavailable Unavailable Jumana Haji MD Unavailable Unavailable Jumana Haji MD Unavailable Unavailable Jumana Haji MD Unavailable Unavailable Jumana Haji MD Unavailable Unavailable Jumana Haji MD Unavailable Unavailable Jumana Haji MD Unavailable Unavailable Jumana Haji MD Unavailable Unavailable Jumana Haji MD Unavailable Unavailable Jumana Haji MD Unavailable Unavailable Jumana Haji MD Unavailable Unavailable Jumana Haji MD Unavailable Unavailable Jumana Haji MD Unavailable Unavailable Jumana Haji MD Unavailable Unavailable Jumana Haji MD Unavailable Unavailable Jumana Haji MD Unavailable Unavailable Jumana Haji MD Unavailable Unavailable Jumana Haji MD Unavailable Unavailable Jumana Haji MD Unavailable Unavailable Jumana Haji MD Unavailable Unavailable Jumana Haji MD Unavailable Unavailable Jumana Haji MD Unavailable Unavailable Jumana Haji MD Unavailable Unavailable Jumana Haji MD Unavailable Unavailable Jumana Haji MD Unavailable Unavailable Jumana Haji MD Unavailable Unavailable Jumana Haji MD Unavailable Unavailable Jumana Haji MD Unavailable Unavailable Jumana Haji MD Unavailable Unavailable Jumana Haji MD Unavailable Unavailable Jumana Haji MD Unavailable Unavailable Jumana Haji MD Unavailable Unavailable Jumana Haji MD Unavailable Unavailable Jumana Haji MD Unavailable Unavailable MCELHERAN, HAYLEE PA Unavailable Unavailable MCELHERAN, HAYLEE PA Unavailable Unavailable MCELHERAN, HAYLEE PA Unavailable Unavailable MCELHERAN, HAYLEE PA Unavailable Unavailable MCELHERAN, HAYLEE PA Unavailable Unavailable MCELHERAN, HAYLEE PA Unavailable Unavailable MCELHERAN, HAYLEE PA Unavailable Unavailable MCELHERAN, HAYLEE PA Unavailable Unavailable MCELHERAN, HAYLEE PA Unavailable Unavailable MCELAN, HAYLEE PA Unavailable Unavailable MCELAN, HAYLEE PA Unavailable Unavailable MCELAN, HAYLEE PA Unavailable Unavailable MCELAN, HAYLEE PA Unavailable Unavailable MCELHERAN, HAYLEE PA Unavailable Unavailable MCELAN, HAYLEE PA Unavailable Unavailable MCELHERAN, HAYLEE PA Unavailable Unavailable MCELHERAN, HAYLEE PA Unavailable Unavailable MCELHERAN, HAYLEE PA Unavailable Unavailable MCELHERAN, HAYLEE PA Unavailable Unavailable MCELHERAN, HAYLEE PA Unavailable Unavailable MCELHERAN, HAYLEE PA Unavailable Unavailable MCELHERAN, HAYLEE PA Unavailable Unavailable MCELHERAN, HYALEE PA Unavailable Unavailable MCELHERAN, HAYLEE PA Unavailable Unavailable MCELHERAN, HAYLEE PA Unavailable Unavailable MCELHERAN, HAYLEE PA Unavailable Unavailable MCELHERAN, HAYLEE PA Unavailable Unavailable MCELHERAN, HAYLEE PA Unavailable Unavailable MCELHERAN, HAYLEE PA Unavailable Unavailable RING, K BRENNEN PA Unavailable Unavailable RING, K BRENNEN PA Unavailable Unavailable RING, K BRENNEN PA Unavailable Unavailable RING, K BRENNEN PA Unavailable Unavailable RING, K BRENNEN PA Unavailable Unavailable RING, K BRENNEN PA Unavailable Unavailable RING, K BRENNEN PA Unavailable Unavailable RING, K BRENNEN PA Unavailable Unavailable RING, K BRENNEN PA Unavailable Unavailable RING, K BRENNEN PA Unavailable Unavailable RING, K BRENNEN PA Unavailable Unavailable RING, K BRENNEN PA Unavailable Unavailable RING, K BRENNEN PA Unavailable Unavailable RING, K BRENNEN PA Unavailable Unavailable RING, K BRENNEN PA Unavailable Unavailable RING, K BRENNEN PA Unavailable Unavailable RING, K BRENNEN PA Unavailable Unavailable RING, K BRENNEN PA Unavailable Unavailable RING, K BRENNEN PA Unavailable Unavailable RING, K BRENNEN PA Unavailable Unavailable RING, K BRENNEN PA Unavailable Unavailable Re-disclosure Warning The records that you are about to access may contain information from federally-assisted alcohol or drug abuse programs. If such information is present, then the following federally mandated warning applies: This information has been disclosed to you from records protected by federal confidentiality rules (42 CFR part 2). The federal rules prohibit you from making any further disclosure of this information unless further disclosure is expressly permitted by the written consent of the person to whom it pertains or as otherwise permitted by 42 CFR part 2. A general authorization for the release of medical or other information is NOT sufficient for this purpose. The Federal rules restrict any use of the information to criminally investigate or prosecute any alcohol or drug abuse patient.The records that you are about to access may contain highly sensitive health information, the redisclosure of which is protected by Article 27-F of the [facility] Public Health law. If you continue you may have access to information: Regarding HIV / AIDS; Provided by facilities licensed or operated by the [facility] Office of Mental Health; or Provided by the [facility] Office for People With Developmental Disabilities. If such information is present, then the following [facility] mandated warning applies: This information has been disclosed to you from confidential records which are protected by state law. State law prohibits you from making any further disclosure of this information without the specific written consent of the person to whom it pertains, or as otherwise permitted by law. Any unauthorized further disclosure in violation of state law may result in a fine or snf sentence or both. A general authorization for the release of medical or other information is NOT sufficient authorization for further disc losure. Family History Family Member Name Family Member Gender Family Member Status Date o f Status Description Data Source(s) Unknown Male Problem MEDENT ([facility]) Unknown Unknown Problem MED[facility] ([facility]) Unknown Male Problem MEDENT ([facility]) Unknown Male Problem MEDENT ([facility] ) Unknown Male Problem MEDENT ([facility]) Unknown Unknown Encounters Encounter Providers Location Date Indications Data Source(s ) [place] [address] [address] 12/19/2020 12:00:00 AM EDT eCW1 [facility] [place] [address] [address] 11/27/2020 12:00:00 AM EDT eCW1 ([facility]) Outpatient Attender: BRENNEN Reynolds 10/18/2020 12:45:00 PM EDT MEDENT ([facility]) Outpatient Attender: Mio Mcgraw 09/25 03:30:00 PM EDT MEDENT ([facility] ) Outpatient Attender: Mio Mcgraw 07/16 10:30:00 AM EDT MEDENT ([facility] ) Outpatient Attender: Mio Mcgraw 02/07 09:00:00 AM EST MEDENT ([facility] ) Outpatient Attender: HAYLEE SALDANA [facility] 12/29/2019 12:45:00 PM EDT MEDENT ([facility]) Immunizations Vaccine Date Status Description Data Source(s) COVID-19 VACCINE Pfizer 05/05/2020 12:00:00 AM EST completed [facility] Vaccine Series Complete: YESThis Data wa s Submitted to [facility]. COVID-19 VACCINE, MRNA, [id number], LNP-S (PFIZER)/PF 05/05/19 12:00:00 AM EST completed [facility] COVID-19 VACCINE Pfizer 04/15/2020 12:00:00 AM EST completed [facility] Vaccine Series Complete: NOThis Data was Submitted to [facility]. COVID-19 VACCINE, MRNA, [id number], LNP-S (PFIZER)/PF 04/15/19 12:00:00 AM EST completed [facility] This CVX code allows reporting of a vacc ination when formulation is unknown (for example, when recording a Influenza vaccination when noted on a vaccination card) 01/20/2020 11:48:00 AM EST completed LEANNA Gregory ([facility]) INFLUENZA VACCINE QUADRIVALENT (65 YR UP)/MF59 C.1/PF 01/20/2020 12:00:00 AM EST completed [facility] Medications Medication Brand Name Start Date Product Form Dose Route Admi nistrative Instructions Pharmacy Instructions Status Indications Reaction Description Data Source(s) 5 mg 12/24/2020 12:00:00 AM EDT tablet 30 TAKE ONE TABLET BY MOUTH EVERY DAY AT BEDTIME TAKE ONE TABLET BY MOUTH EVERY DAY AT BEDTIME SOLD: 12/24/2020 [facility] glimepiride 1 MG Oral Tablet GLIMEPIRIDE 12/17/2020 12:00:00 AM EDT ta blet 90 TAKE ONE TABLET BY MOUTH EVERY MORNING WITH BREAKFAST EACH DAY TAKE ONE TABLET BY MOUTH EVERY MORNING WITH BREAKFAST EACH DAY SOLD: 12/19/2020 [facility] 500 mg 12/11/2020 12:00:00 AM EDT tablet 14 TAKE ONE AND ONE-HALF TABLETS BY MOUTH TWICE A DAY TAKE ONE AND ONE-HALF TABLETS BY MOUTH TWICE A DAY PEPE [facility] 0.5 mg 11/29/2020 12:00:00 AM EDT tablet 45 TAKE 1/2 TABLET BY MOUTH EVERY MORNING AND 1 TABLET EVERY EVENING MAX DAILY DOSE= 1 & 1/2 TABLETS TAKE 1/2 TABLET BY MOUTH EVERY MORNING AND 1 TABLET EVERY EVENING MAX DAILY DOSE= 1 & 1/2 TABLETS SOLD: 11/29/2020 [facility] 0.5 mg 10/29/2020 12:00:00 AM EDT tablet 45 TAKE 1/2TAB.BY MOUTH EVERY A.M.AND 1TAB.EVERY P.M. MAX DAILY DOSE=1AND1/2 TABS. TAKE 1/2TAB.BY MOUTH EVERY A.M.AND 1TAB.EVERY P.M. MAX DAILY DOSE=1AND1/2 TABS. SOLD: 10/31/2020 [facility] 33 gauge 10/22/2020 12:00:00 AM EDT misc 100 USE 1 LANCET TWICE A DAY USE 1 LANCET TWICE A DAY SOLD: 12/10/2020 [facility] 33 gauge 10/22/2020 12:00:00 AM EDT misc 100 USE 1 LANCET TWICE A DAY USE 1 LANCET TWICE A DAY SOLD: 10/23/2020 [facility] 0.5 mg 10/01/2020 12:00:00 AM EDT tablet 45 TAKE 1/2TAB.BY MOUTH EVERY A.M.AND 1TAB.EVERY P.M. MAX DAILY DOSE=1AND1/2 TABS. TAKE 1/2TAB.BY MOUTH EVERY A.M.AND 1TAB.EVERY P.M. MAX DAILY DOSE=1AND1/2 TABS. SOLD: 10/01/2020 [facility] 0.5 mg 08/29/2020 12:00:00 AM EDT tablet 45 TAKE 1/2TAB.BY MOUTH EVERY A.M.AND 1TAB.EVERY P.M. MAX DAILY DOSE=1AND1/2 TABS. TAKE 1/2TAB.BY MOUTH EVERY A.M.AND 1TAB.EVERY P.M. MAX DAILY DOSE=1AND1/2 TABS. SOLD: 09/02/2020 [facility] Paroxetine Hydrochloride 40 MG Oral Tablet PAROXETINE HCL 08/25/2020 12:00:00 AM EDT tablet 90 TAKE 1 & 1/2 TABLETS BY MOUT H EVERY DAY TAKE 1 & 1/2 TABLETS BY MOUTH EVERY DAY SOLD: 10/28/2020 [facility] Paroxetine Hydrochloride 40 MG Oral Tablet PAROXETINE HCL 08/25/2020 12:00:00 AM EDT tablet 90 TAKE 1 & 1/2 TABLETS BY MOUT H EVERY DAY TAKE 1 & 1/2 TABLETS BY MOUTH EVERY DAY SOLD: 08/29/2020 [facility] 0.5 mg 07/25/2020 12:00:00 AM EDT tablet 45 TAKE 1/2TAB.BY MOUTH EVERY A.M.AND 1TAB.EVERY P.M. MAX DAILY DOSE=1AND1/2 TABS. TAKE 1/2TAB.BY MOUTH EVERY A.M.AND 1TAB.EVERY P.M. MAX DAILY DOSE=1AND1/2 TABS. SOLD: 07/26/2020 [facility] BLOOD SUGAR DIAGNOSTIC 07/23/2020 12:00:00 AM EDT strip 200 TEST TWO TIMES A DAY TEST TWO TIMES A DAY SOLD: 07/26/2020 [facility] Onetouch Verio 07/23/2020 12:00:00 AM EDT [place] MED[facility] ([facility]) BLOOD SUGAR DIAGNOSTIC 07/23/2020 12:00:00 AM EDT strip 200 TEST TWO TIMES A DAY TEST TWO TIMES A DAY SOLD: 10/23/2020 [facility] LANCING DEVICE/LANCETS 07/17/2020 12:00:00 AM EDT kit 1 USE DIRECTED USE DIRECTED SOLD: 07/17/2020 [facility] 50 mcg/actuation 07/16/2020 12:00:00 AM EDT spray,suspension 48 SPRAY TWO SPRAYS IN EACH NOSTRIL EVERY MORNING SPRAY TWO SPRAYS IN EACH NOSTRIL EVERY MORNING SOLD: 07/17/2020 [facility] Flonase Allergy Relief Flonase Allergy Relief 07/16/2020 12:00:00 AM E DT active MEDENT ([facility]) 0.5 mg 06/29/2020 12:00:00 AM EDT tablet 45 TAKE 1/2TAB.BY MOUTH EVERY A.M.AND 1TAB.EVERY P.M. MAX DAILY DOSE=1AND1/2 TABS. TAKE 1/2TAB.BY MOUTH EVERY A.M.AND 1TAB.EVERY P.M. MAX DAILY DOSE=1AND1/2 TABS. SOLD: 07/01/2020 [facility] 0.5 mg 05/31/2020 12:00:00 AM EDT tablet 45 TAKE 1/2 TABLET BY MOUTH EVERY MORNING & 1 TABLET EVERY EVENING MAXIMUM DAILY DOSE = 1 & 1/2 TABLETS TAKE 1/2 TABLET BY MOUTH EVERY MORNING & 1 TABLET EVERY EVENING MAXIMUM DAILY DOSE = 1 & 1/2 TABLETS SOLD: 06/01/2020 [facility] Covid-19 vaccine, Unspecified 05/05/2020 12:00:00 AM EST completed [facility] Medication administered onsite 0.5 mg 05/01/2020 12:00:00 AM EST tablet 45 TAKE 1/2TAB.BY MOUTH EVERY A.M.& 1TAB.BY MOUTH EVERY P.M. MAX DAILY DOSE=1&1/2TABS. TAKE 1/2TAB.BY MOUTH EVERY A.M.& 1TAB.BY MOUTH EVERY P.M. MAX DAILY DOSE=1&1/2TABS. SOLD: 05/03/2020 [facility] 0.4 mg 04/28/2020 12:00:00 AM EST capsule 180 TAKE 2 CAPSULES DAILY 1/2 HOUR AFTER THE SAME MEAL TAKE 2 CAPSULES DAILY 1/2 HOUR AFTER THE SAME MEAL PEPE [facility] 0.4 mg 04/28/2020 12:00:00 AM EST capsule 180 TAKE 2 CAPSULES DAILY 1/2 HOUR AFTER THE SAME MEAL TAKE 2 CAPSULES DAILY 1/2 HOUR AFTER THE SAME MEAL PEPE [facility] 0.4 mg 04/28/2020 12:00:00 AM EST capsule 180 TAKE 2 CAPSULES DAILY 1/2 HOUR AFTER THE SAME MEAL TAKE 2 CAPSULES DAILY 1/2 HOUR AFTER THE SAME MEAL PEPE [facility] Covid-19 vaccine, Unspecified 04/15/2020 12:00:00 AM EST completed [facility] Medication administered onsite 0.5 mg 03/30/2020 12:00:00 AM EST tablet 45 TAKE ONE-HALF TABLET BY MOUTH EVERY MORNING AND TAKE ONE TABLET BY MOUTH EVERY EVENING MAXIMUM DAILY DOSE = 1 & 1/2 TABLETS TAKE ONE-HALF TABLET BY MOUTH EVERY MORN ING AND TAKE ONE TABLET BY MOUTH EVERY EVENING MAXIMUM DAILY DOSE = 1 & 1/2 TABLETS SOLD: 04/01/2020 [facility] 0.5 mg 02/29/2020 12:00:00 AM EST tablet 45 TAKE 1/2TAB.BY MOUTH EVERY MORNING & 1 TABLET EVERY EVENING MAX=1&1/2TABS/DAY TAKE 1/2TAB.BY MOUTH EVERY MORNING & 1 TABLET EVERY EVENING MAX=1&1/2TABS/DAY SOLD: 03/01/2020 [facility] 0.5 mg 01/30/2020 12:00:00 AM EST tablet 45 TAKE 1/2 TABLET BY MOUTH EVERY MORNING & 1 TABLET EVERY EVENING MAX DAILY DOSE=1&1/2TABLETS TAKE 1/2 TABLET BY MOUTH EVERY MORNING & 1 TABLET EVERY EVENING MAX DAILY DOSE=1&1/2TABLETS SOLD: 01/31/2020 [facility] 0.5 mg 12/30/2019 12:00:00 AM EDT tablet 45 TAKE 1/2 TAB.BY MOUTH EVERY A.M. & 1TAB. EVERY P.M. MAX DAILY DOSE=1&1/2TABS TAKE 1/2 TAB.BY MOUTH EVERY A.M. & 1TAB. EVERY P.M. MAX DAILY DOSE=1&1/2TABS SOLD: 01/01/2020 [facility] glimepiride 1 MG Oral Tablet GLIMEPIRIDE 12/28/2019 12:00:00 AM EDT ta blet 90 TAKE ONE TABLET BY MOUTH EVERY MORNING WITH BREAKFAST EACH DAY TAKE ONE TABLET BY MOUTH EVERY MORNING WITH BREAKFAST EACH DAY SOLD: 03/27/2020 [facility] glimepiride 1 MG Oral Tablet GLIMEPIRIDE 12/28/2019 12:00:00 AM EDT ta blet 90 TAKE ONE TABLET BY MOUTH EVERY MORNING WITH BREAKFAST EACH DAY TAKE ONE TABLET BY MOUTH EVERY MORNING WITH BREAKFAST EACH DAY SOLD: 09/19/2020 [facility] glimepiride 1 MG Oral Tablet GLIMEPIRIDE 12/28/2019 12:00:00 AM EDT ta blet 90 TAKE ONE TABLET BY MOUTH EVERY MORNING WITH BREAKFAST EACH DAY TAKE ONE TABLET BY MOUTH EVERY MORNING WITH BREAKFAST EACH DAY SOLD: 06/22/2020 [facility] glimepiride 1 MG Oral Tablet GLIMEPIRIDE 12/28/2019 12:00:00 AM EDT ta blet 90 TAKE ONE TABLET BY MOUTH EVERY MORNING WITH BREAKFAST EACH DAY TAKE ONE TABLET BY MOUTH EVERY MORNING WITH BREAKFAST EACH DAY SOLD: 12/29/2019 [facility] Paroxetine Hydrochloride 40 MG Oral Tablet PAROXETINE HCL 12/27/2019 12:00:00 AM EDT tablet 90 TAKE 1 & 1/2 TABLETS BY MOUT H EVERY DAY TAKE 1 & 1/2 TABLETS BY MOUTH EVERY DAY SOLD: 06/28/2020 [facility] Paroxetine Hydrochloride 40 MG Oral Tablet PAROXETINE HCL 12/27/2019 12:00:00 AM EDT tablet 90 TAKE 1 & 1/2 TABLETS BY MOUT H EVERY DAY TAKE 1 & 1/2 TABLETS BY MOUTH EVERY DAY SOLD: 04/29/2020 [facility] Paroxetine Hydrochloride 40 MG Oral Tablet PAROXETINE HCL 12/27/2019 12:00:00 AM EDT tablet 90 TAKE 1 & 1/2 TABLETS BY MOUT H EVERY DAY TAKE 1 & 1/2 TABLETS BY MOUTH EVERY DAY SOLD: 02/27/2020 [facility] Paroxetine Hydrochloride 40 MG Oral Tablet PAROXETINE HCL 12/27/2019 12:00:00 AM EDT tablet 90 TAKE 1 & 1/2 TABLETS BY MOUT H EVERY DAY TAKE 1 & 1/2 TABLETS BY MOUTH EVERY DAY SOLD: 12/29/2019 [facility] Cyclobenzaprine hydrochloride 10 MG Oral Tablet CYCLOBENZAPR INE HCL 12/15/2019 12:00:00 AM EDT tablet 10 TAKE ONE TABLET BY MOUTH AT BEDTIME FOR 10 DAYS TAKE ONE TABLET BY MOUTH AT BEDTIME FOR 10 DAYS SOLD: 12/15/2019 [facility] 20 mg 12/15/2019 12:00:00 AM EDT tablet 10 TAKE TWO TABLETS BY MOUTH EVERY MORNING FOR 5 DAYS TAKE TWO TABLETS BY MOUTH EVERY MORNING FOR 5 DAYS PEPE [facility] 0.5 mg 12/01/2019 12:00:00 AM EDT tablet 45 TAKE 1/2 TAB.BY MOUTH EVERY A.M. & 1TAB. EVERY P.M. MAX DAILY DOSE=1&1/2TABS TAKE 1/2 TAB.BY MOUTH EVERY A.M. & 1TAB. EVERY P.M. MAX DAILY DOSE=1&1/2TABS SOLD: 12/02/2019 [facility] 500 mg 11/28/2019 12:00:00 AM EDT tablet 45 TAKE ONE AND ONE-HALF TABLETS BY MOUTH TWICE A DAY TAKE ONE AND ONE-HALF TABLETS BY MOUTH TWICE A DAY PEPE [facility] 0.5 mg 11/03/2019 12:00:00 AM EDT tablet 45 TAKE 1/2 TAB.BY MOUTH EVERY MORNING & 1TAB. EVERY P.M. MAX DAILY DOSE=1&1/2TABS TAKE 1/2 TAB.BY MOUTH EVERY MORNING & 1TAB. EVERY P.M. MAX DAILY DOSE=1&1/2TABS SOLD: 11/03/2019 [facility] BLOOD SUGAR DIAGNOSTIC 07/05/2019 12:00:00 AM EDT strip 100 USE TO TEST TWO TIMES A DAY USE TO TEST TWO TIMES A DAY SOLD: 01/12/2020 [facility] 33 gauge 07/05/2019 12:00:00 AM EDT misc 100 USE TO TEST TWO TIMES A DAY USE TO TEST TWO TIMES A DAY SOLD: 02/02/2020 [facility] BLOOD SUGAR DIAGNOSTIC 07/05/2019 12:00:00 AM EDT strip 100 USE TO TEST TWO TIMES A DAY USE TO TEST TWO TIMES A DAY SOLD: 11/11/2019 [facility] BLOOD SUGAR DIAGNOSTIC 07/05/2019 12:00:00 AM EDT strip 100 USE TO TEST TWO TIMES A DAY USE TO TEST TWO TIMES A DAY SOLD: 04/16/2020 [facility] 33 gauge 07/05/2019 12:00:00 AM EDT misc 100 USE TO TEST TWO TIMES A DAY USE TO TEST TWO TIMES A DAY SOLD: 05/24/2020 [facility] BLOOD SUGAR DIAGNOSTIC 07/05/2019 12:00:00 AM EDT strip 100 USE TO TEST TWO TIMES A DAY USE TO TEST TWO TIMES A DAY SOLD: 03/03/2020 [facility] BLOOD SUGAR DIAGNOSTIC 07/05/2019 12:00:00 AM EDT strip 100 USE TO TEST TWO TIMES A DAY USE TO TEST TWO TIMES A DAY SOLD: 06/04/2020 [facility] Insurance Providers Payer name Policy type / Coverage type Policy ID Covered green party ID Covered green party's relationship to spicer Policy Spicer Plan Information Medicare [facility] Medicare Primary [id number] Self [id number] [facility] Primary [id number] Self [id number] MEDICARE [id number] SP [id number] A MEDICARE [id number] SP [id number] A Medicare Natl Govt Serv[employer] Medicare Primary [id number] Self Medicare Natl [employer] Medicare Primary [id number] Self [id number] [facility] 303/803 [id number] SP [id number] [facility] 303/803 [id number] SP [id number] [employer] [place] Commercial [id number] Self [id number] [facility] Solutions Commercial [id number] Self [id number] [facility] ([facility]) Commercial [id number] Self [id number] [facility] ([facility]) Commercial [id number] Self [id number] [facility] ([facility]) Commercial [id number] Self [id number] [facility] ([facility]) Commercial [id number] Self [id number] [facility] ([facility]) Commercial [id number] Self [id number] MEDICARE COMPLETE [id number] SP [id number] MEDICARE OUTPATIENT M [id number] S [id number] MEDICARE COMPLETE-[facility] O [id number] S [id number] MEDICARE COMPLETE [id number] SP [id number] [facility]/Medicare Solu Commercial [id number] Self [id number] [facility]/Medicare Commercial [id number] Self [id number] [employer] Medigap Part B [id number] Self [id number] [employer] B [id number] S [id number] MEDICARE C [id number] S [id number] A MEDICARE COMPLETE [id number] SP [id number] [facility] [id number] SP [id number] [employer] Medigap Part [id number] Self [id number] [employer]BS Medigap Part B [id number] Self [id number] [place] Medicare Primary [id number] Self [place] Medigap Part B [id number] [place] Primary [id number] Self [employer] BCBS S [id number] S [id number] BCBS ANTHEM O [id number] S [id number] [id number] SP [id number] Problems, Conditions, and Diagnoses Code Display Name Description Problem Type Effective Dates Data Source(s) N39.43 [id number] Post-void dribbling Problem 11/27/2020 12:00 :00 AM EDT eCW1 ([facility]) Surgeries/Procedures Procedure Description Date Indications Data Source(s) OFFICE OUTPATIENT VISIT 25 MINUTES 10/18/2020 12:00:00 AM EDT MEDGRACIELA ([facility]) OFFICE OUTPATIENT VISIT 15 MINUTES 09/25/2020 12:00:00 AM EDT MEDENT ([facility]) PERIODIC PREVENTIVE MED EST PATIENT 65YRS&> 07/16/2020 12:00:00 AM EDT MEDENT ([facility]) Results ID Date Data Source CT ABD & Pelvis w/o FOL by ALEJANDRA 12/03/2020 12:00:00 AM EDT eC W1 ([facility]) Name Value Range Interpretation Code Description Data Kailyn rce(s) Supporting Document(s) CT ABD & Pelvis w/o FOL by ALEJANDRA eCW1 ([facility]) ID Date Data Source Basic Metabolic Profile (BMP) 11/29/2020 12:00:00 AM EDT eCW 1 ([facility]) Name Value Range Interpretation Code Description Data Kailyn rce(s) Supporting Document(s) 25 7-18 BLOOD UREA NITROGEN eCW1 ([facility]) 159 70-100 GLUCOSE, FASTING eCW1 ([facility]) 4.3 3.5-5.1 POTASSIUM SERUM eCW1 ([facility]) 141 136-145 SODIUM LEVEL eCW1 ([facility]) 52.6 >49 GLOMERULAR FILTRATION RATE eCW 1 ([facility]) 1.42 0.70-1.30 CREATININE FOR GFR eCW1 ([facility]) 22 21-32 CARBON DIOXIDE LEVEL eCW1 ([facility]) 8.9 8.8-10.2 CALCIUM LEVEL eCW1 ([facility]) 107 98-107 CHLORIDE LEVEL eCW1 ([facility]) ID Date Data Source [id number] 10/18/2020 12:48:00 PM EDT MEDENT ([facility]) Name Value Range Interpretation Code Description Data Kailyn rce(s) Supporting Document(s) Bacteria identified in Urine by Culture Laboratory test result [facility] ([facility]) No Rx ID Date Data Source [id number] 07/16/2020 11:40:00 AM EDT MED[facility] ([facility]) Name Value Range Interpretation Code Description Data Kailyn rce(s) Supporting Document(s) Prostate specific Ag [Mass/volume] in Serum or Plasma 1.26 ng/mL MEDENT ([facility]) This assay was performed on the Siemens Dimension EXL using the B- Galactosidase/CPRG methodology and should not be compared interchangeably with other methods. The PSA should not be used alone as a screening test for the presence or absence of malignant disease. ID Date Data Source [id number] 07/16/2020 11:39:00 AM EDT MED[facility] ([facility]) Name Value Range Interpretation Code Description Data Kailyn rce(s) Supporting Document(s) Microalbumin Urine 10.8 mg/L 1.3-20.0 [facility] ([facility]) Urine Creatinine 219.3 mg/dL 30.0-125.0 [facility] ([facility]) Microalb/Creat Ratio 4.9 ug/mg 0.0-30.0 [facility] ID Date Data Source [id number] 07/16/2020 11:39:00 AM EDT MED[facility] ([facility]) Name Value Range Interpretation Code Description Data Kailyn rce(s) Supporting Document(s) Thyrotropin [Units/volume] in Serum or Plasma by Detec tion limit <= 0.05 mIU/L 2.20 uIU/mL 0.36-3.74 [facility] ([facility] ID Date Data Source [id number] 07/16/2020 11:39:00 AM EDT [facility]) Name Value Range Interpretation Code Description Data Kailyn rce(s) Supporting Document(s) Cholesterol [Mass/volume] in Serum or Plasma 169 mg/dL 131-200 MED[facility] ([facility]) Cholesterol in HDL [Mass/volume] in Serum or Plasma 72 mg/dL 35-60 [facility] ([facility]) Triglyceride [Mass/volume] in Serum or Plasma 117 mg/dL 30-150 [facility] ([facility]) Cholesterol in LDL [Mass/volume] in Serum or Plasma by calcu lation 74 CALC 50-159 [facility] ([facility]) ID Date Data Source [id number] 07/16/2020 11:39:00 AM EDT [facility] ([facility]) Name Value Range Interpretation Code Description Data Kailyn rce(s) Supporting Document(s) Glucose [Mass/volume] in Serum or Plasma 128 mg/dL 74-99 [facility] ([facility]) 100-125 mg/dL PRE-DIABETES/FASTING >126 mg/dL DIABETES/FASTING Urea nitrogen [Mass/volume] in Serum or Plasma 25 mg/dL 7-18 [facility] ([facility]) Creatinine 1.4 mg/dL 0.6-1.3 [facility] ([facility]) Potassium [Moles/volume] in Serum or Plasma 4.3 meq/L 3.5-5.1 [facility] ([facility]) Sodium [Moles/volume] in Serum or Plasma 141 meq/L 136-145 [facility] ([facility]) Chloride [Moles/volume] in Serum or Plasma 103 meq/L 98-107 [facility] ([facility]) Carbon dioxide, total [Moles/volume] in Serum or Plasma 23 meq/L 21 -32 [facility] ([facility]) Alkaline phosphatase isoenzyme [Units/volume] in Serum or Pl asma 41 mg/dL 46-116 [facility] ([facility]) Calcium [Mass/volume] in Serum or Plasma 9.6 mg/dL 8.5-10.1 [facility] ([facility]) Total Bilirubin 0.4 mg/dL 0.2-1.0 [facility] ([facility]) Aspartate aminotransferase [Enzymatic activity/volume] in Serum or Plasma 20 U/L 15-37 [facility] ([facility] ) Albumin [Mass/volume] in Serum or Plasma 4.1 g/dL 3.4-5.0 [facility] ([facility]) Alanine aminotransferase [Enzymatic activity/volume] in Seru m or Plasma 28 U/L 12-78 [facility] ([facility]) Proteinase 3 Ab [Units/volume] in Serum 7.1 g/dL 6.4-8.2 [facility] ([facility]) A/G Ratio 1.37 CALC 1.00-1.90 [facility] ([facility]) Glomerular filtration rate/1.73 sq M pre dicted among non-blacks [Volume Rate/Area] in Serum or Plasma by Creatinine-based formula (MDRD) 50 mL/min [facility] ([facility]) Glomerular filtration rate/1.73 sq M pre dicted among blacks [Volume Rate/Area] in Serum or Plasma by Creatinine-based formula (MDRD) Laboratory test result [facility] ([facility]) <content>CHRONIC KIDNEY DISEASE STAGING PER NKF</content>
<content></content>
<content>STAGE I & II GFR >= 60 NORMAL TO MILDLY DECREASED</content>
<content>STAGE III GFR 30-59 MODERATELY DECREASED</content>
<content>STAGE IV GFR 15-29 SEVERELY DECREASED</content>
<content>STAGE V GFR <15 VERY LITTLE GFR LEFT</content>
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
<content></content> ID Date Data Source [id number] 07/16/2020 11:39:00 AM EDT [facility] ([facility]) Name Value Range Interpretation Code Description Data Kailyn rce(s) Supporting Document(s) Hemoglobin A1c/Hemoglobin.total in Blood 5.9 % [facility] ([facility]) Lab Result Notes: Pre-Diabetes 5.7 - 6.4 % Diabetes = or > 6.5% Glucose mean value [Mass/volume] in Blood Estimated fr om glycated hemoglobin 123 mg/dL 60-110 [facility] ([facility] ) ID Date Data Source [id number] 02/08/2020 09:51:00 AM EST [facility] ([facility]) Name Value Range Interpretation Code Description Data Kailyn rce(s) Supporting Document(s) Triglyceride [Mass/volume] in Serum or Plasma 129 mg/dL 30-150 [facility] ([facility]) Cholesterol [Mass/volume] in Serum or Plasma 179 mg/dL 131-200 [facility] ([facility]) Cholesterol in HDL [Mass/volume] in Serum or Plasma 63 mg/dL 35-60 [facility]) Cholesterol in LDL [Mass/volume] in Serum or Plasma by calcu lation 90 CALC 50-159 [facility] ([facility]) ID Date Data Source [id number] 02/08/2020 09:51:00 AM EST [facility] ([facility]) Name Value Range Interpretation Code Description Data Kailyn rce(s) Supporting Document(s) Glucose [Mass/volume] in Serum or Plasma 172 mg/dL 74-99 [facility] ([facility]) 100-125 mg/dL PRE-DIABETES/FASTING >126 mg/dL DIABETES/FASTING Urea nitrogen [Mass/volume] in Serum or Plasma 29 mg/dL 7-18 [facility] ([facility]) Creatinine 1.5 mg/dL 0.6-1.3 [facility] ([facility]) Sodium [Moles/volume] in Serum or Plasma 141 meq/L 136-145 [facility] ([facility]) Chloride [Moles/volume] in Serum or Plasma 106 meq/L 98-107 [facility] ([facility]) Potassium [Moles/volume] in Serum or Plasma 4.0 meq/L 3.5-5.1 [facility] ([facility]) Carbon dioxide, total [Moles/volume] in Serum or Plasma 25 meq/L 21 -32 [facility] ([facility]) Calcium [Mass/volume] in Serum or Plasma 9.2 mg/dL 8.5-10.1 [facility] ([facility]) Total Bilirubin 0.5 mg/dL 0.2-1.0 [facility] ([facility]) Alkaline phosphatase isoenzyme [Units/volume] in Serum or Pl asma 39 mg/dL 46-116 [facility] ([facility]) Aspartate aminotransferase [Enzymatic activity/volume] in Serum or Plasma 19 U/L 15-37 [facility] ([facility] ) Alanine aminotransferase [Enzymatic activity/volume] in Seru m or Plasma 26 U/L 12-78 [facility] ([facility]) Albumin [Mass/volume] in Serum or Plasma 3.8 g/dL 3.4-5.0 [facility] ([facility]) Proteinase 3 Ab [Units/volume] in Serum 7.1 g/dL 6.4-8.2 [facility] ([facility]) A/G Ratio 1.15 CALC 1.00-1.90 [facility] ([facility]) Glomerular filtration rate/1.73 sq M pre dicted among non-blacks [Volume Rate/Area] in Serum or Plasma by Creatinine-based formula (MDRD) 47 mL/min [facility] ([facility]) Glomerular filtration rate/1.73 sq M pre dicted among blacks [Volume Rate/Area] in Serum or Plasma by Creatinine-based formula (MDRD) 56 mL/min [facility]) <content>CHRONIC KIDNEY DISEASE STAGING PER NKF</content>
<content></content>
<content>STAGE I & II GFR >= 60 NORMAL TO MILDLY DECREASED</content>
<content>STAGE III GFR 30-59 MODERATELY DECREASED</content>
<content>STAGE IV GFR 15-29 SEVERELY DECREASED</content>
<content>STAGE V GFR <15 VERY LITTLE GFR LEFT</content>
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
<content></content> ID Date Data Source [id number] 02/08/2020 09:51:00 AM EST [facility] ([facility]) Name Value Range Interpretation Code Description Data Kailyn rce(s) Supporting Document(s) Hemoglobin A1c/Hemoglobin.total in Blood 6.5 % [facility]) Lab Result Notes: Pre-Diabetes 5.7 - 6.4 % Diabetes = or > 6.5% Glucose mean value [Mass/volume] in Blood Estimated fr om glycated hemoglobin 140 mg/dL 60-110 [facility] ([facility] ID Date Data Source [id number] 02/08/2020 09:51:00 AM EST [facility] Name Value Range Interpretation Code Description Data Kailyn rce(s) Supporting Document(s) Hemoglobin A1c/Hemoglobin.total in Blood Laboratory test result [facility] ([facility]) Procedure Social History Code Duration Value Status Description Data Source(s ) Smoking 11/27/2020 12:00:00 AM EDT Former Smoker completed Former Smoker eCW1 ([facility]) Smoking 11/27/2020 12:00:00 AM EDT Former Smoker completed Former Smoker eCW1 ([facility]) Smoking 10/18/2020 12:00:00 AM EDT Quit completed Quit [facility]) Vital Signs ID Date Data Source [id number] Name Value Range Interpretation Code Description Data Source(s) Body weight 190.4 [lb_av] 190.4 [lb_av] eCW1 ([facility]) Body height 64 [in_i] 64 [in_i] eCW1 ([facility]) Body mass index (BMI) [Ratio] 32.68 kg/m2 32.68 kg/m2 eCW1 ([facility]) Heart rate 81 /min 81 /min eCW1 ([facility]) Respiratory rate 18 /min 18 /min eCW1 ([facility]) Body temperature 97.6 [degF] 97.6 [degF] eCW1 ( [facility]) Systolic blood pressure 132 mm[Hg] 132 mm[Hg] e CW1 ([facility]) Diastolic blood pressure 78 mm[Hg] 78 mm[Hg] eCW1 ([facility]) Body height 64 [in_i] 64 [in_i] [facility] ([facility], [facility]) 5'4" Body mass index (BMI) [Ratio] 31.9 kg/m2 31.9 k g/m2 [facility] ([facility], [facility]) Systolic blood pressure 116 mm[Hg] 116 mm[Hg] M EDENT ([facility], [facility]) Diastolic blood pressure 74 mm[Hg] 74 mm[Hg] [facility] ([facility], [facility]) Heart rate 102 /min 102 /min [facility] ([facility], [facility]) Respiratory rate 16 /min 16 /min [facility] ( [facility], [facility]) Oxygen saturation in Arterial blood by Pulse oximetry 97 % 97 % [facility] ([facility], [facility]) Body temperature 96.2 [degF] 96.2 [degF] MED[facility] ([facility], [facility]) Body weight 186.00 [lb_av] 186.00 [lb_av] MEDEN T ([facility], [facility]) Systolic blood pressure 111 mm[Hg] 111 mm[Hg] M EDENT ([facility]) Diastolic blood pressure 69 mm[Hg] 69 mm[Hg] [facility] ([facility]) Heart rate 87 /min 87 /min [facility] ([facility]) Body height 64 [in_i] 64 [in_i] [facility] ([facility]) 5'4" Body weight 189.00 [lb_av] 189.00 [lb_av] MEDEN T ([facility]) Body mass index (BMI) [Ratio] 32.4 kg/m2 32.4 k g/m2 [facility] ([facility]) Systolic blood pressure 120 mm[Hg] 120 mm[facility]] [facility] Diastolic blood pressure 70 mm[Hg] 70 mm[Hg] [facility] ([facility]) Heart rate 89 /min 89 /min [facility] ([facility]) Body height 64 [in_i] 64 [in_i] MED[facility] ([facility]) 5'4" Body weight 194.12 [lb_av] 194.12 [lb_av] MEDEN T ([facility]) Oxygen saturation in Arterial blood by Pulse oximetry 97 % 97 % [facility] ([facility]) Air Body mass index (BMI) [Ratio] 33.3 kg/m2 33.3 k g/m2 [facility] ([facility]) Heart rate 94 /min 94 /min [facility] ([facility]) Body weight 199.00 [lb_av] 199.00 [lb_av] MEDEN T ([facility]) Oxygen saturation in Arterial blood by Pulse oximetry 97 % 97 % [facility] ([facility]) Body mass index (BMI) [Ratio] 34.2 kg/m2 34.2 k g/m2 [facility] ([facility]) Diastolic blood pressure 82 mm[Hg] 82 mm[Hg] [facility] ([facility]) Systolic blood pressure 112 mm[Hg] 112 mm[facility]Hg] [facility] Body height 64 [in_i] 64 [in_i] MED[facility] ([facility]) 5'4" Body temperature 98.6 [degF] 98.6 [degF] MED[facility] ([facility] ) Body height 62.5 [in_i] 62.5 [in_i] MED[facility] ([facility] ) 5'2.50" Body weight 195.12 [lb_av] 195.12 [lb_av] LEANNA T ([facility] ) Body mass index (BMI) [Ratio] 35.1 kg/m2 35.1 k g/m2 ISABELL ([facility] )
--- OUTSIDE RECORDS SUMMARY | 2020-12-27 21:20 | CCD ---
Author Author [facility] Organization [facility] Address Unknown Phone Unavailable Care Team Providers Care Manufacturing Mechanic Name Role Phone Jumana Haji MD Unavailable [...] is protected by Article 27-F of the [facility] Public Health law. If you continue you may have access to information: Regarding HIV / AIDS; Provided by facilities licensed or operated by the [facility] Office of Mental Health; or Provided by the [facility] Office for People With Developmental Disabilities. If such information is present, then the following [facility] mandated warning applies: This information has been [...] law may result in a fine or usp sentence or both. A general authorization for the release of medical or other information is NOT sufficient authorization for further disc losure. Family History Family Member Name Family Member Gender Family Member Status Date o f Status Description Data Source(s) Unknown Male Problem MEDENT ([facility]) Unknown Unknown Problem [facility] ([facility]) Unknown Male Problem MEDENT ([facility]) Unknown Male Problem MEDENT ([facility] ) Unknown Male Problem MEDENT ([facility]) Unknown Unknown Encounters Encounter Providers Location Date Indications Data Source(s ) Unknown [address] [facility] [address] 12/19/2020 12:00:00 AM EDT eCW1 ([facility]) Outpatient [address] [facility] [address] 11/27/2020 12:00:00 AM EDT eCW1 ([facility]) Outpatient Attender: BRENNEN Reynolds 10/18/2020 12:45:00 PM EDT MEDENT ([facility]) Outpatient Attender: Mio Mcgraw 09/25 03:30:00 PM EDT MEDENT ([facility] ) Outpatient Attender: Mio Mcgraw 07/16 10:30:00 AM EDT MEDENT ([facility] ) Outpatient Attender: Mio Mcgraw 02/07 09:00:00 AM EST MEDENT ([facility] ) Outpatient Attender: HAYLEE SALDANA Physical Therapy 12/29/2019 12:45:00 PM EDT MEDENT ([facility]) Immunizations Vaccine Date Status Description Data Source(s) COVID-19 VACCINE Pfizer 05/05/2020 12:00:00 AM EST completed [facility] Vaccine Series Complete: YESThis Data wa s Submitted to [facility] [employer]. COVID-19 VACCINE, MRNA, [id number], LNP-S (PFIZER)/PF 05/05/19 12:00:00 AM EST completed [facility] COVID-19 VACCINE Pfizer 04/15/2020 12:00:00 AM EST completed [facility] Vaccine Series Complete: NOThis Data was Submitted to [facility] [employer]. COVID-19 VACCINE, MRNA, [id number], LNP-S (PFIZER)/PF 04/15/19 12:00:00 AM EST completed [facility] This CVX code allows reporting of a vacc ination when formulation is unknown (for example, when recording a Influenza vaccination when noted on a vaccination card) 01/20/2020 11:48:00 AM EST completed LEANNA Gregory ([facility]) INFLUENZA VACCINE QUADRIVALENT (65 YR UP)/MF59 [...] BY MOUTH EVERY DAY SOLD: 10/28/2020 [facility] Paroxetine Hydrochloride 40 MG Oral Tablet PAROXETINE HCL 08/25/2020 12:00:00 AM EDT tablet 90 TAKE 1 & 1/2 TABLETS BY MOUT H EVERY DAY TAKE 1 & 1/2 TABLETS BY MOUTH EVERY DAY SOLD: 08/29/2020 [facility] 0.5 mg 07/25/2020 12:00:00 AM EDT [...] 07/23/2020 12:00:00 AM EDT [place] MED[facility] ([facility]) BLOOD SUGAR DIAGNOSTIC 07/23/2020 12:00:00 AM EDT strip 200 TEST TWO TIMES A DAY TEST TWO TIMES A DAY SOLD: 10/23/2020 [facility] LANCING DEVICE/LANCETS 07/17/2020 12:00:00 AM EDT kit 1 USE DIRECTED USE DIRECTED SOLD: 07/17/2020 [facility] 50 mcg/actuation 07/16/2020 12:00:00 AM EDT spray,suspension 48 SPRAY TWO SPRAYS IN EACH NOSTRIL EVERY MORNING SPRAY TWO SPRAYS IN EACH NOSTRIL EVERY MORNING SOLD: 07/17/2020 [facility] Flonase Allergy Relief Flonase Allergy Relief 07/16/2020 12:00:00 AM E DT active MEDENT ([facility]) 0.5 mg 06/29/2020 12:00:00 AM EDT tablet 45 TAKE 1/2TAB.BY MOUTH EVERY A.M.AND 1TAB.EVERY P.M. MAX DAILY DOSE=1AND1/2 TABS. TAKE 1/2TAB.BY MOUTH EVERY A.M.AND 1TAB.EVERY P.M. MAX DAILY DOSE=1AND1/2 TABS. SOLD: 07/01/2020 [facility] 0.5 mg 05/31/2020 12:00:00 AM EDT tablet 45 TAKE 1/2 TABLET BY MOUTH EVERY MORNING & 1 TABLET EVERY EVENING MAXIMUM DAILY DOSE = 1 & 1/2 TABLETS TAKE 1/2 TABLET BY MOUTH EVERY MORNING & 1 TABLET EVERY EVENING MAXIMUM DAILY DOSE = 1 & 1/2 TABLETS SOLD: 06/01/2020 [facility] Covid-19 vaccine, Unspecified 05/05/2020 12:00:00 AM EST completed [facility] Medication administered onsite 0.5 mg 05/01/2020 12:00:00 [...] Unspecified 04/15/2020 12:00:00 AM EST completed [facility] ([facility] Medication administered onsite 0.5 mg 03/30/2020 12:00:00 [...] BY MOUTH EVERY DAY SOLD: 12/29/2019 [facility] Cyclobenzaprine hydrochloride 10 MG Oral Tablet CYCLOBENZAPR [...] TEST TWO TIMES A DAY SOLD: 02/02/2020 [facility] BLOOD SUGAR DIAGNOSTIC 07/05/2019 12:00:00 [...] type / Coverage type Policy ID Covered libertarian ID Covered libertarian's relationship to spicer Policy Spicer Plan Information Medicare Natl Govt Servic Medicare Primary [id number] Self [id number] MEDICARE [id number] SP [id number] A MEDICARE [id number] SP [id number] A Medicare Natl Govt Servic Medicare Primary [id number] Self [id number] Medicare Natl Govt Servic Medicare Primary [id number] Self Medicare Natl Govt Servic Medicare Primary [id number] Self [id number] [facility] 303/803 [id number] SP [id number] [facility] 303/803 [id number] SP [id number] [facility] Medicare [place] Commercial [id number] Self [id number] [facility] Commercial [id number] Self [id number] [facility] ([facility]) Commercial [id number] Self [id number] [facility] ([facility]) Commercial [id number] Self [id number] [facility] ([facility]) Commercial [id number] Self [id number] [facility] ([facility]) Commercial [id number] Self [id number] [facility] ([facility]) Commercial [id number] Self [id number] MEDICARE COMPLETE [id number] SP [id number] MEDICARE COMPLETE [id number] SP [id number] MEDICARE C [id number] S [id number] A [facility] [id number] SP [id number] [facility] B [id number] S UQV [id number] [place] [employer] Medigap Part B [id number] Self [id number] [facility]/Medicare Commercial [id number] Self [id number] [facility]/Medicare Solu Commercial [id number] Self [id number] MEDICARE COMPLETE [id number] SP [id number] BS [place] [employer] [facility] Part B [id number] Self [id number] MEDICARE COMPLETE-[facility] O [id number] S [id number] [employer] [facility] Medigap Part B [id number] Self 934/332 [place] Medicare Primary [id number] Self [facility] [id number] SP [id number] BC/BS [facility] Medigap Part B [id number] [place] Primary [id number] Self [employer] BCBS S [id number] S UQV [id number] BCBS ANTHEM O [id number] S UQVAN [id number] MEDICARE OUTPATIENT M [id number] S [id number] Problems, Conditions, and Diagnoses Code Display Name Description Problem Type Effective Dates Data Source(s) N39.43 [id number] Post-void dribbling Problem 11/27/2020 12:00 :00 AM EDT eCW1 ([facility]) Surgeries/Procedures Procedure Description Date Indications Data Source(s) OFFICE OUTPATIENT VISIT 25 MINUTES 10/18/2020 12:00:00 AM EDT MEDENT ([facility]) OFFICE OUTPATIENT VISIT 15 MINUTES 09/25/2020 12:00:00 AM EDT MEDENT ([facility]) PERIODIC PREVENTIVE MED EST PATIENT 65YRS&> 07/16/2020 12:00:00 AM EDT MEDENT ([facility]) Results ID Date Data Source CT ABD & Pelvis w/o FOL by ALEJANDRA 12/03/2020 12:00:00 AM EDT eC W1 ([facility]) Name Value Range Interpretation Code Description Data Kailyn rce(s) Supporting Document(s) CT ABD & Pelvis w/o FOL by ALEJANDRA eCW1 ([facility]) ID Date Data Source Basic Metabolic Profile (BMP) 11/29/2020 12:00:00 AM EDT eCW 1 ([facility]) Name Value Range Interpretation Code Description Data Kailyn rce(s) Supporting Document(s) 25 7-18 BLOOD UREA NITROGEN eCW1 ([facility]) 159 70-100 GLUCOSE, FASTING eCW1 ([facility]) 4.3 3.5-5.1 POTASSIUM SERUM eCW1 ([facility]) 141 136-145 SODIUM LEVEL eCW1 ([facility]) 52.6 >49 GLOMERULAR FILTRATION RATE eCW 1 ([facility]) 1.42 0.70-1.30 CREATININE FOR GFR eCW1 ([facility]) 22 21-32 CARBON DIOXIDE LEVEL eCW1 ([facility]) 8.9 8.8-10.2 CALCIUM LEVEL eCW1 ([facility]) 107 98-107 CHLORIDE LEVEL eCW1 ([facility]) ID Date Data Source [id number] 10/18/2020 12:48:00 PM EDT MEDENT ([facility]) Name Value Range Interpretation Code Description Data Kailyn rce(s) Supporting Document(s) Bacteria identified in Urine by Culture Laboratory test result [facility] ([facility]) No Rx ID Date Data Source [id number] 07/16/2020 11:40:00 AM EDT MEDENT ([facility]) Name Value Range Interpretation Code Description Data Kailyn rce(s) Supporting Document(s) Prostate specific Ag [Mass/volume] in Serum or Plasma 1.26 ng/mL MEDENT ([facility]) This assay was performed on the Siemens Dimension EXL using the B- Galactosidase/CPRG methodology and should not be compared interchangeably with other methods. The PSA should not be used alone as a screening test for the presence or absence of malignant disease. ID Date Data Source [id number] 07/16/2020 11:39:[address] [facility] ([facility]) Name Value Range Interpretation Code Description Data Kailyn rce(s) Supporting Document(s) Microalbumin Urine 10.8 mg/L 1.3-20.0 [facility] Urine Creatinine 219.3 mg/dL 30.0-125.0 [facility] ([facility]) Microalb/Creat Ratio 4.9 ug/mg 0.0-30.0 [facility] ID Date Data Source [id number] 07/16/2020 11:39:00 AM EDT [facility] ([facility]) Name Value Range Interpretation Code Description Data Kailyn rce(s) Supporting Document(s) Thyrotropin [Units/volume] in Serum or Plasma by Detec tion limit <= 0.05 mIU/L 2.20 uIU/mL 0.36-3.[address] [facility] ([facility] ) ID Date Data Source [id number] 07/16/2020 11:39:00 AM EDT [facility] ([facility]) Name Value Range Interpretation Code Description Data Kailyn rce(s) Supporting Document(s) Cholesterol [Mass/volume] in Serum or Plasma 169 mg/dL 131-[address] [facility] ([facility]) Cholesterol in HDL [Mass/volume] in Serum or Plasma 72 mg/dL 35-[address] [facility] ([facility]) Triglyceride [Mass/volume] in Serum or Plasma 117 mg/dL 30-150 MEDENT ([facility]) Cholesterol in LDL [Mass/volume] in Serum or Plasma by calcu lation 74 CALC 50-[address] [facility] ([facility]) ID Date Data Source [id number] 07/16/2020 11:39:[address] [facility] ([facility]) Name Value Range Interpretation Code Description Data Kailyn rce(s) Supporting Document(s) Glucose [Mass/volume] in Serum or Plasma 128 mg/dL 74-99 MEDENT ([facility]) 100-125 mg/dL PRE-DIABETES/FASTING >126 mg/dL DIABETES/FASTING Urea nitrogen [Mass/volume] in Serum or Plasma 25 mg/dL 7-18 MEDENT ([facility]) Creatinine 1.4 mg/dL 0.6-1.3 MED[facility] ([facility]) Potassium [Moles/volume] in Serum or Plasma 4.3 meq/L 3.5-5.1 MEDENT ([facility]) Sodium [Moles/volume] in Serum or Plasma 141 meq/L 136-145 MEDENT ([facility]) Chloride [Moles/volume] in Serum or Plasma 103 meq/L 98-107 MED[facility] ([facility]) Carbon dioxide, total [Moles/volume] in Serum or Plasma 23 meq/L 21 -32 MEDENT ([facility]) Alkaline phosphatase isoenzyme [Units/volume] in Serum or Pl asma 41 mg/dL 46-116 MEDENT ([facility]) Calcium [Mass/volume] in Serum or Plasma 9.6 mg/dL 8.5-10.1 MEDENT ([facility]) Total Bilirubin 0.4 mg/dL 0.2-1.0 MEDENT ([facility]) Aspartate aminotransferase [Enzymatic activity/volume] in Serum or Plasma 20 U/L 15-37 MEDENT ([facility] ) Albumin [Mass/volume] in Serum or Plasma 4.1 g/dL 3.4-5.0 MEDENT ([facility]) Alanine aminotransferase [Enzymatic activity/volume] in Seru m or Plasma 28 U/L 12-78 MEDENT ([facility]) Proteinase 3 Ab [Units/volume] in Serum 7.1 g/dL 6.4-8.2 MEDENT ([facility]) A/G Ratio 1.37 CALC 1.00-1.90 [facility] ([facility]) Glomerular filtration rate/1.73 sq M pre dicted among non-blacks [Volume Rate/Area] in Serum or Plasma by Creatinine-based formula (MDRD) 50 mL/min [facility] Glomerular filtration rate/1.73 sq M pre dicted among blacks [Volume Rate/Area] in Serum or Plasma by Creatinine-based formula (MDRD) Laboratory test result [facility] ([facility]) <content>CHRONIC KIDNEY DISEASE STAGING PER NKF</content>
<content></content>
<content>STAGE I & II GFR >= 60 NORMAL TO MILDLY DECREASED</content>
<content>STAGE III GFR 30-59 MODERATELY DECREASED</content>
<content>STAGE IV GFR 15-29 SEVERELY DECREASED</content>
<content>STAGE V GFR <15 VERY LITTLE GFR LEFT</content>
<content>ESRD GFR <15 ON BULLET SLUGS INSPECTOR</content>
<content></content> ID Date Data Source [id number] 07/16/2020 11:39:00 AM EDT [facility] ([facility]) Name Value Range Interpretation Code Description Data Kailyn rce(s) Supporting Document(s) Hemoglobin A1c/Hemoglobin.total in Blood 5.9 % [facility] ([facility]) Lab Result Notes: Pre-Diabetes 5.7 - 6.4 % Diabetes = or > 6.5% Glucose mean value [Mass/volume] in Blood Estimated fr om glycated hemoglobin 123 mg/dL 60-110 [facility] ID Date Data Source [id number] 02/08/2020 09:51:00 AM EST [facility] ([facility]) Name Value Range Interpretation Code Description Data Kailyn rce(s) Supporting Document(s) Triglyceride [Mass/volume] in Serum or Plasma 129 mg/dL 30-150 [facility] ([facility]) Cholesterol [Mass/volume] in Serum or Plasma 179 mg/dL 131-[address] [facility] ([facility]) Cholesterol in HDL [Mass/volume] in Serum or Plasma 63 mg/dL 35-[address] [facility] ([facility]) Cholesterol in LDL [Mass/volume] in Serum or Plasma by calcu lation 90 CALC 50-159 [facility] ID Date Data Source [id number] 02/08/2020 09:51:00 AM EST [facility] ([facility]) Name Value Range Interpretation Code Description Data Kailyn rce(s) Supporting Document(s) Glucose [Mass/volume] in Serum or Plasma 172 mg/dL 74-99 MEDENT ([facility]) 100-125 mg/dL PRE-DIABETES/FASTING >126 mg/dL DIABETES/FASTING Urea nitrogen [Mass/volume] in Serum or Plasma 29 mg/dL 7-18 MED[facility] ([facility]) Creatinine 1.5 mg/dL 0.6-1.3 [facility] Sodium [Moles/volume] in Serum or Plasma 141 meq/L 136-145 MED[facility] ([facility]) Chloride [Moles/volume] in Serum or Plasma 106 meq/L 98-107 [facility] ([facility]) Potassium [Moles/volume] in Serum or Plasma 4.0 meq/L 3.5-5.1 MED[facility] ([facility]) Carbon dioxide, total [Moles/volume] in Serum or Plasma 25 meq/L 21 -32 [facility] ([facility]) Calcium [Mass/volume] in Serum or Plasma 9.2 mg/dL 8.5-10.1 [facility] ([facility]) Total Bilirubin 0.5 mg/dL 0.2-1.0 MEDENT ([facility]) Alkaline phosphatase isoenzyme [Units/volume] in Serum or Pl asma 39 mg/dL 46-116 MED[facility] ([facility]) Aspartate aminotransferase [Enzymatic activity/volume] in Serum or Plasma 19 U/L 15-37 MED[facility] ([facility] ) Alanine aminotransferase [Enzymatic activity/volume] in Seru m or Plasma 26 U/L 12-78 MED[facility] ([facility]) Albumin [Mass/volume] in Serum or Plasma 3.8 g/dL 3.4-5.0 MED[facility] ([facility]) Proteinase 3 Ab [Units/volume] in Serum 7.1 g/dL 6.4-8.2 [facility] ([facility]) A/G Ratio 1.15 CALC 1.00-1.90 MED[facility] ([facility]) Glomerular filtration rate/1.73 sq M pre dicted among non-blacks [Volume Rate/Area] in Serum or Plasma by Creatinine-based formula (MDRD) 47 mL/min [facility] ([facility]) Glomerular filtration rate/1.73 sq M pre dicted among blacks [Volume Rate/Area] in Serum or Plasma by Creatinine-based formula (MDRD) 56 mL/min MEDENT ([facility]) <content>CHRONIC KIDNEY DISEASE STAGING PER NKF</content>
<content></content>
<content>STAGE I & II GFR >= 60 NORMAL TO MILDLY DECREASED</content>
<content>STAGE III GFR 30-59 MODERATELY DECREASED</content>
<content>STAGE IV GFR 15-29 SEVERELY DECREASED</content>
<content>STAGE V GFR <15 VERY LITTLE GFR LEFT</content>
<content>ESRD GFR <15 ON BULLET SLUGS INSPECTOR</content>
<content></content> ID Date Data Source [id number] 02/08/2020 09:51:00 AM EST MEDENT ([facility]) Name Value Range Interpretation Code Description Data Kailyn rce(s) Supporting Document(s) Hemoglobin A1c/Hemoglobin.total in Blood 6.5 % [facility] ([facility]) Lab Result Notes: Pre-Diabetes 5.7 - 6.4 % Diabetes = or > 6.5% Glucose mean value [Mass/volume] in Blood Estimated fr om glycated hemoglobin 140 mg/dL 60-[address] [facility] ([facility] ) ID Date Data Source [id number] 02/08/2020 09:51:[address] [facility] Name Value Range Interpretation Code Description Data Kailyn rce(s) Supporting Document(s) Hemoglobin A1c/Hemoglobin.total in Blood Laboratory test result [facility] Procedure Social History Code Duration Value Status Description Data Source(s ) Smoking 11/27/2020 12:00:00 AM EDT Former Smoker completed Former Smoker eCW1 ([facility]) Smoking 11/27/2020 12:00:00 AM EDT Former Smoker completed Former Smoker eCW1 ([facility]) Smoking 10/18/2020 12:00:00 AM EDT Quit completed Quit MEDENT ([facility]) Vital Signs ID Date Data Source UNK Name Value Range Interpretation Code Description Data Source(s) Body weight 190.4 [lb_av] 190.4 [lb_av] eCW1 ([facility]) Body height 64 [in_i] 64 [in_i] eCW1 ([facility]) Body mass index (BMI) [Ratio] 32.68 kg/m2 32.68 kg/m2 eCW1 ([facility]) Heart rate 81 /min 81 /min eCW1 ([facility]) Respiratory rate 18 /min 18 /min eCW1 ([facility]) Body temperature 97.6 [degF] 97.6 [degF] eCW1 ( [facility]) Systolic blood pressure 132 mm[Hg] 132 mm[Hg] e CW1 ([facility]) Diastolic blood pressure 78 mm[Hg] 78 mm[Hg] eCW1 ([facility]) Body height 64 [in_i] 64 [in_i] MEDENT ([facility]) 5'4" Systolic blood pressure 116 mm[Hg] 116 mm[Hg] M EDENT ([facility]) Diastolic blood pressure 74 mm[Hg] 74 mm[Hg] MEDENT ([facility]) Heart rate 102 /min 102 /min MEDENT ([facility]) Respiratory rate 16 /min 16 /min MEDENT ( [facility], [facility]) Oxygen saturation in Arterial blood by Pulse oximetry 97 % 97 % MEDENT ([facility], [facility]) Body temperature 96.2 [degF] 96.2 [degF] MEDENT ([facility]) Body weight 186.00 [lb_av] 186.00 [lb_av] MEDEN T ([facility], [facility]) Body mass index (BMI) [Ratio] 31.9 kg/m2 31.9 k g/m2 MEDENT ([facility]) Systolic blood pressure 111 mm[Hg] 111 mm[Hg] M EDENT ([facility]) Diastolic blood pressure 69 mm[Hg] 69 mm[Hg] MEDENT ([facility]) Heart rate 87 /min 87 /min MEDENT ([facility]) Body height 64 [in_i] 64 [in_i] MEDENT ([facility]) 5'4" Body weight 189.00 [lb_av] 189.00 [lb_av] MEDEN T ([facility]) Body mass index (BMI) [Ratio] 32.4 kg/m2 32.4 k g/m2 MEDENT ([facility]) Systolic blood pressure 120 mm[Hg] 120 mm[Hg] [facility] Diastolic blood pressure 70 mm[Hg] 70 mm[Hg] MEDENT ([facility]) Heart rate 89 /min 89 /min MEDENT ([facility]) Body height 64 [in_i] 64 [in_i] MEDENT ([facility]) 5'4" Body weight 194.12 [lb_av] 194.12 [lb_av] MEDEN T ([facility]) Oxygen saturation in Arterial blood by Pulse oximetry 97 % 97 % MEDENT ([facility]) Air Body mass index (BMI) [Ratio] 33.3 kg/m2 33.3 k g/m2 MEDENT ([facility]) Heart rate 94 /min 94 /min MED[facility] ([facility]) Diastolic blood pressure 82 mm[Hg] 82 mm[Hg] MEDENT ([facility]) Body weight 199.00 [lb_av] 199.00 [lb_av] MEDEN T ([facility]) Oxygen saturation in Arterial blood by Pulse oximetry 97 % 97 % MEDENT ([facility]) Body mass index (BMI) [Ratio] 34.2 kg/m2 34.2 k g/m2 MEDENT ([facility]) Body height 64 [in_i] 64 [in_i] MEDENT ([facility]) 5'4" Systolic blood pressure 112 mm[Hg] 112 mm[Hg] M EDENT ([facility]) Body temperature 98.6 [degF] 98.6 [degF] MEDENT ([facility]) Body height 62.5 [in_i] 62.5 [in_i] MEDENT ([facility] 5'2.50" Body weight 195.12 [lb_av] 195.12 [lb_av] LEANNA T ([facility] ) Body mass index (BMI) [Ratio] 35.1 kg/m2 35.1 k g/m2 ISABELL ([facility] )
[2020-12-27] MEDS ORDERED: NS 1,000 ML IV ONE (22:40)
[2020-12-27 23:17] LABS: BASO % 0.2 % (0.0-1.0); EOS % 0.2 % (0.0-3.0); HEMATOCRIT 40.3 % (42.0-52.0); HEMOGLOBIN 13.3 g/dl (13.5-17.5); LYMPH # 0.5 10^3/uL (1.5-5.0); LYMPH % 3.5 % (24.0-44.0); MEAN CORPUSCULAR HEMOGLOBIN 29.6 pg (27.0-33.0); MEAN CORPUSCULAR VOLUME 89.8 fl (80.0-96.0); MONO # 0.9 10^3/uL (0.0-0.8); NEUTROPHILS # 11.8 10^3/uL (1.5-8.5); NEUTROPHILS % 88.6 % (36.0-66.0); PLATELET COUNT, AUTOMATED 186 10^3/uL (150-450); RED BLOOD COUNT 4.49 10^6/uL (4.30-6.10); WHITE BLOOD COUNT 13.3 10^3/uL (4.0-10.0)
[2020-12-27 23:44] LABS: CREATININE FOR GFR 1.61 MG/DL (0.70-1.30); GLOMERULAR FILTRATION RATE 45.5 (>49); POTASSIUM SERUM 3.9 MEQ/L (3.5-5.1)
[2020-12-28] MEDS ORDERED: NS 500 ML IV ONE (00:55)
[2020-12-28] MEDS ORDERED: BACT800T5 PO (01:02)
[2020-12-28 02:30] VITALS: BP 130/58
== END 2020-12-28 02:33 | disposition home or self-care (01) ==
LOC: M ED 20:13
DX: N39.0 Urinary tract infection, site not specified (principal); N40.1 Benign prostatic hyperplasia with lower urinary tract symptoms; Z80.42 Family history of malignant neoplasm of prostate; I10 Essential (primary) hypertension; R56.9 Unspecified convulsions; K21.9 Gastro-esophageal reflux disease without esophagitis; R51.9 Headache, unspecified; E03.9 Hypothyroidism, unspecified; Z87.442 Personal history of urinary calculi; Z79.899 Other long term (current) drug therapy; Z88.0 Allergy status to penicillin
CPT/HCPCS: 36415; 51702; 80048; 81001; 85025; 87088; 87186; 96360; 96361; 99284; G0103

== ENCOUNTER → 2020-12-27 | Outpatient (CLI) | payer MEDICARE, OTHER ==
[~2020-12-27] MED LIST changes: -ISOVUE-370 76% 100ML VIAL As Ordered ONE
== END ==
LOC: M WUC 13:01
PROVIDERS: ATTEND Urology
DX: Z80.42 Family history of malignant neoplasm of prostate (principal)

== ENCOUNTER 2020-12-30 17:29 | Emergency (ER) | payer MEDICARE ==
[~2020-12-30] VITALS: Ht 162.6 cm; Wt 84.5 kg
[~2020-12-30 17:29] MED LIST changes: +BACT800T5 PO
--- OUTSIDE RECORDS SUMMARY | 2020-12-30 17:38 | CCD | Continuity of Care Document ---
Author Author Ganesh HERNANDEZ M.D. Organization Unknown Address [address] [address] Phone [phone] Care Team Providers Care Wood Heel Finisher Name Role Phone Mio Hernandez MD AUTM [phone] Filomena Dozier OD AUTM Unavailable Austin Fung MD AUTM [phone] Davon Olivo MD AUTM [phone] Rochelle Joseph MD AUTM [phone] Problems Active Problems Provider Date Eruption Onset: [...] smoker Quit 1993, 25 yrs, 3/4 ppd. Allergies and adverse reactions Active Allergies Criticality Reaction | Severity Comments Date Sudafed Unable to assess criticality Mild 02/11/2011 Penicillin Unable to assess criticality Hives 08/15/2014 Wellbutrin Unable to assess criticality Mild 02/11/2011 Relafen Unable to assess criticality Mild 02/11/2011 Nasonex Unable to assess criticality Mild 02/11/2011 Penicillins Unable to assess criticality Mild 02/11/2011 Medications Active Medications SIG Qnty [...] M.D. Lancet Device Misc as direct ed 1units Mio Hernandez M.D. 07/04/2019 Lancets Micro Thin 33G [...] Tablets 1 1/2 by mouth every day 90tabs Foreign Finley MD 08/15/[address] 1 tab by mouth twice a day 180tabs Mio Hernandez M.D. 08/15/2014 Tricor 145mg Tablets 1 by mouth every day 90tabs Mio Hernandez M.D. 08/15/2014 Levetiracetam 500mg Tablets 1 1/2 tab b.i.d 270tabs Foreign Finley MD 08/15/2014 Tamsulosin HCL 0.4mg Capsules 2 daily each evening 60caps Mio Hernandez M.D. 08/15/2014 Clonazepam 0.5mg Tablets take 1/2 tab every morning and 1 tab every evening. 45tabs Mio Hernandez M.D. 08/09/2014 Naproxen 500mg Tablets as [...] Hernandez M.D. 02/16/2018 Administration Of Flu Vaccine Faustina Hernandez M.D. 01/26/2017 Administration Of Flu Vaccine Faustina Hernandez M.D. 01/22/2016 Administration Of Flu Vaccine Inj davidion Mio Hernandez M.D. 01/04/2015 Immunizations CPT Code Status Date Vaccine Lot # U-Flu Given 01/20/2020 Influenza,Unspecified [id number] Given 01/11/2019 Influenza Vaccin e Quadrivalent Preser/Antibiotic Free Im Use [id number] Given 02/16/2018 Influenza Virus Vaccine, Quadrivalent ([id number]), Derived From 9 Given 01/26/2017 Influenza Vaccin e Quadrivalent Preser/Antibiotic Free Im Use [id number] Given 01/22/2016 Fluvirin Virus Vaccine 50171 01 [id number] Given 01/04/2015 Fluvirin Virus Vaccine 07127 01 [id number] Given 12/29/2013 Influenza Virus Vaccine 09048 Given 12/16/2012 Influenza Virus Vaccine 37978 Given 12/03/2011 Influenza Virus Vaccine 46270 Given 01/13/2011 Influenza Virus Vaccine 51907 Given 12/25/2009 Influenza Virus Vaccine 64005 Given 12/14/2009 Influenza Virus Vaccine 03823 Given 03/16/2005 Adacel- Tetanus Diphtheria P ertussis Vital Signs Date Vital Result Comment 09/25/2020 [...] Date Facility Test Result H/L Range Note Ua W/ Reflex To Culture 12/28/[address] [id number] [phone] Appearance, Urine RFX CLOUDY High Clear Color, Urine RFX YANIRA Normal Yellow PH,Urine RFX 5.0 units Normal 5.0-9.0 Specific [place] Ur Auto RFX 1.031 Normal 1.002-1.035 Protein, Urine Auto RFX 2+ mg/dL High Negative Glucose, Urine (Ua) Auto RFX NEGATIVE mg/dL Normal Negative Ketone, Urine Auto RFX TRACE mg/dL High Negative Urobilinogen, Urine Auto RFX 2.0 mg/dL High 0.0-2.0 Bilirubin, Urine Auto RFX NEGATIVE Normal Negative Nitrite, Urine Auto RFX NEGATIVE Normal Negative Leukocyte Esterase Ur Auto RFX 3+ High Negative Blood, Urine Blood RFX 3+ High Negative WBC, Urine Auto RFX 91 /HPF High 0-3 RBC, Urine Auto RFX TNTC /HPF High 0-3 Bacteria, Urine Auto RFX 3+ High Negative Squam Epithelial Cell Ur Aurfx 0 /HPF Normal 0-6 Mucus, Urine RFX SMALL Normal Negative Sperm, Urine Auto RFX SMALL High None Hyaline Cast, Urine Auto RFX 0 /LPF Normal 0-1 CBC With Differential 12/27/[address] [id number] [phone] White Blood Count 13.3 10 High 4.0-10.0 Red Blood Count 4.49 10 Normal 4.30-6.10 Hemoglobin 13.3 g/dL Low 13.5-17.5 Hematocrit 40.3 % Low 42.0-52.0 Mean Corpuscular Volume 89.8 fl Normal 80.0-96.0 Mean Corpuscular Hemoglobin 29.6 pg Normal 27.0-33.0 Mean Corpuscular HGB Conc 33.0 g/dL Normal 32.0-36.5 Red Cell Distribution Width 13.6 % Normal 11.5-14.5 Platelet Count, Automated 186 10 Normal 150-450 Neutrophils % 88.6 % High 36.0-66.0 Lymph % 3.5 % Low 24.0-44.0 [place] % 7.0 % Normal 2.0-8.0 Eos % 0.2 % Normal 0.0-3.0 Baso % 0.2 % Normal 0.0-1.0 Immature Granulocyte % 0.5 % Normal 0-3.0 Nucleated Red Blood Cell % 0.0 % Normal 0-0 Neutrophils # 11.8 10 High 1.5-8.5 Lymph # 0.5 10 Low 1.5-5.0 [place] # 0.9 10 High 0.0-0.8 Eos # 0.0 10 Normal 0.0-0.5 Baso # 0.0 10 Normal 0.0-0.2 Basic Metabolic Profile 12/27/2020 [facility] [address] [place], [place] [id number] [phone] Glucose, Fasting 119 mg/dL High 70-100 Blood Urea Nitrogen 28 mg/dL High 7-18 Creatinine For GFR 1.61 mg/dL High 0.70-1.30 Glomerular Filtration Rate 45.5 Low >49 1 Sodium Level 141 mEq/L Normal 136-145 Potassium Serum 3.9 mEq/L Normal 3.5-5.1 Chloride Level 108 mEq/L High 98-107 Carbon Dioxide Level 23 mEq/L Normal 21-32 Anion Gap 10 mEq/L Normal 8-16 Calcium Level 9.0 mg/dL Normal 8.8-10.2 Laboratory test finding 07/16/2020 [facility] Employment Program Representative: [place] [address] [phone] PSA 1.26 ng/mL <4.00 2 A1c 07/16/2020 [facility] , Employment Program Representative: [place] [address] [phone] Hba1c 5.9 % High <5.7 3 Est Avg Glucose 123 mg/dL High 60 - 110 Comprehensive Chem Profile 07/16/2020 [facility], Employment Program Representative: [place] [address] [phone] Glucose 128 mg/dL High 74 - 99 4 BUN 25 mg/dL High 7 - 18 [...] Low >60 GFR >= 60 mL/min >60 5 Lipid Profile 07/16/2020 [facility] , Employment Program Representative: [place] [address] [phone] Cholesterol 169 mg/dL 131 - 200 Triglycerides 117 mg/dL 30 - 150 HDL Cholesterol 72 mg/dL High 35 - 60 LDL (Calculated) 74 CALC 50 - 159 Laboratory test finding 07/16/2020 [facility] Employment Program Representative: [place] [address] [phone] Thyroid Stimulating Hormone 2.20 uIU/mL 0.3 6 - 3.74 Microalbumin/Creatinine Urine 07/16/2020 [facility] Employment Program Representative: Dr Foreign Finley [place], [place] [id number] [phone] Microalbumin Urine 10.8 mg/L 1.3 - 20.0 Urine Creatinine 219.3 mg/dL High 30.0 - 125.0 Microalb/Creat Ratio 4.9 ug/mg 0.0 - 30.0 1 Units are mL/min/1.73 m2 Chronic Kidney Disease Staging per NKF: Stage I & II GFR >=60 Normal to Mildly Decreased Stage III GFR 30-59 Moderately Decreased Stage IV GFR 15-29 Severely Decreased Stage V GFR <15 Very Little GFR Left ESRD GFR <15 on BAG MACHINE OPERATOR 2 This assay was performed on the [employer] EXL using the B- Galactosidase/CPRG methodology and should not be compared interchangeably with other methods. The PSA should not be used alone as a screening test for the presence or absence of malignant disease. 3 Lab Result Notes: Pre-Diabetes 5.7 - 6.4 % Diabetes = or > 6.5% 4 100-125 mg/dL PRE-DIABET ES/FASTING >126 mg/dL DIABETES/FASTING 5 CHRONIC KIDNEY DISEASE STAGI NG PER NKF STAGE I & II GFR >= 60 NORMAL TO MILDLY DECREASED STAGE III GFR 30-59 MODERATELY DECREASED STAGE IV GFR 15-29 SEVERELY DECREASED STAGE V GFR <15 VERY LITTLE GFR LEFT ESRD GFR <15 ON BAG MACHINE OPERATOR Procedures Date Code Description Status 09/25/2020 37292 Office/Outpatient Established Lo w MDM 20-29 Min Completed 07/16/2020 52710 Est Prevent Med (65Yrs&Ovr) Comp leted 01/10/2019 [id number] Colonoscopy Completed 06/05/2017 [id number] Diabetic Retinal Eye Exam Comple ori 01/26/2008 [id number] Colonoscopy Completed Medical Devices Description No Information Available Encounters Type Date Location Provider Dx Diagnosis Office Visit 09/25/2020 3:30p [facility] Mio Hernandez M.D. R30.0 Dysuria R00.2 Palpitations F41.9 Anxiety [...] brain, un specified Office Visit 07/16/2020 10:30a [facility] Mio Hernandez M.D. N40.0 Benign prostatic hyperplasia without low [...] 01/22/2021 9:50 am - Lab Schedule at [facility] * 01/23/2021 3:00 pm - [facility] at [facility] 09/25/2020 - Mio Hernandez M.D.* R30.0 [...] is on Keppra. He sees Neurology at [facility] and will continue appropriate follow up.11. Chronic kidney disease, stage 3: Improved kidney function. He should be careful with NSAIDs usage and will continue to avoid nephrotoxins. 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 He follows up with neurosurgery in [place] and will continue appropriately.Ongoing cares: I am going to see him again in 4-5 months with CMP, lipids, CBC and A1c. If he has new problems or issues sooner he will let us know. Functional Status Description No Information Available Mental Status Description No Information Available Referrals Description No Information Available
--- OUTSIDE RECORDS SUMMARY | 2020-12-30 17:39 | CCD ---
Author Author [facility] Organization [facility] Address Unknown Phone Unavailable Care Team Providers Care Granulator Operator Name Role Phone Jumana Haji MD Unavailable [...] Unavailable Unavailable Jumana Haji MD Unavailable Unavailable Raissa F Mio CANAS Unavailable Unavailable Jumana Haji MD Unavailable Unavailable [...] is protected by Article 27-F of the [facility] Public Health law. If you continue you may have access to information: Regarding HIV / AIDS; Provided by facilities licensed or operated by the [facility] Office of Mental Health; or Provided by the [facility] Office for People With Developmental Disabilities. If such information is present, then the following [facility] mandated warning applies: This information has [...] law may result in a fine or group home sentence or both. A general authorization for the release of medical or other information is NOT sufficient authorization for further disc losure. Family History Family Member Name Family Member Gender Family Member Status Date o f Status Description Data Source(s) Unknown Male Problem [facility] ([facility]) Unknown Unknown Problem [facility] Unknown Male Problem [facility] ([facility]) Unknown Male Problem MEDENT ([facility] ) Unknown Male Problem [facility] ([facility]) Unknown Unknown Encounters Encounter Providers Location Date Indications Data Source(s ) [place] [address] [address] 12/19/2020 12:00:00 AM EDT [facility] [place] [address] [address] 11/27/2020 12:00:00 AM EDT eCW1 ([facility]) Outpatient Attender: BRENNEN Reynolds 10/18/2020 12:45:00 PM EDT [facility] Outpatient Attender: Mio Mcgraw 09/25 03:30:00 PM EDT MED[facility] ([facility] ) Outpatient Attender: Mio Mcgraw 07/16 10:30:00 AM EDT MED[facility] ([facility] ) Outpatient Attender: Mio Mcgraw 02/07 09:00:00 AM EST MED[facility] ([facility] ) Outpatient Attender: HAYLEE SALDANA [facility] 12/29/2019 12:45:00 PM EDT MED[facility] ([facility]) Immunizations Vaccine Date Status Description Data Source(s) COVID-19 VACCINE Pfizer 05/05/2020 12:00:00 AM EST completed [facility] Vaccine Series Complete: YESThis Data wa s Submitted to [facility] Via [employer]. COVID-19 VACCINE, MRNA, [id number], LNP-S (PFIZER)/PF 05/05/19 12:00:00 AM EST completed [facility] COVID-19 VACCINE Pfizer 04/15/2020 12:00:00 AM EST completed [facility] Vaccine Series Complete: NOThis Data was Submitted to [facility] Via [employer]. COVID-19 VACCINE, MRNA, [id number], LNP-S (PFIZER)/PF 04/15/19 12:00:00 AM EST completed [facility] This CVX code allows reporting of a vacc ination when formulation is unknown (for example, when recording a Influenza vaccination when noted on a vaccination card) 01/20/2020 11:48:00 AM EST completed LEANNA Gregory ([facility]) INFLUENZA VACCINE QUADRIVALENT (65 YR UP)/MF59 C.1/PF 01/20/2020 12:00:00 AM EST completed [facility] Medications Medication Brand Name Start Date Product Form Dose Route Admi nistrative Instructions Pharmacy Instructions Status Indications Reaction Description Data Source(s) 800-160 mg 12/28/2020 12:00:00 AM EDT tablet 7 TA KE 1 TABLET BY MOUTH DAILY TAKE 1 TABLET BY MOUTH DAILY SOLD: 12/28/2020 [facility] 5 mg 12/24/2020 12:00:00 AM EDT tablet [...] P.M. MAX DAILY DOSE=1AND1/2 TABS. SOLD: 09/02/2020 [facility] Paroxetine Hydrochloride 40 MG Oral [...] P.M. MAX DAILY DOSE=1AND1/2 TABS. SOLD: 07/26/2020 [facility] BLOOD SUGAR DIAGNOSTIC 07/23/2020 12:00:00 AM EDT strip 200 TEST TWO TIMES A DAY TEST TWO TIMES A DAY SOLD: 07/26/2020 [facility] 07/23/2020 12:00:00 AM EDT [place] [facility] ([facility]) BLOOD SUGAR DIAGNOSTIC 07/23/2020 12:00:00 AM [...] IN EACH NOSTRIL EVERY MORNING SOLD: 07/17/2020 [facility] Flonase Allergy Relief Flonase Allergy Relief 07/16/2020 12:00:00 AM E DT active MED[facility] ([facility]) 0.5 mg 06/29/2020 12:00:00 AM [...] Unspecified 05/05/2020 12:00:00 AM EST completed [facility] Medication administered onsite 0.5 mg 05/01/2020 12:00:00 [...] Unspecified 04/15/2020 12:00:00 AM EST completed [facility] Medication administered onsite 0.5 mg 03/30/2020 12:00:00 [...] MORNING WITH BREAKFAST EACH DAY SOLD: 12/29/2019 [facility] Paroxetine Hydrochloride 40 MG Oral Tablet PAROXETINE HCL 12/27/2019 12:00:00 AM EDT tablet 90 TAKE 1 & 1/2 TABLETS BY MOUT H EVERY DAY TAKE 1 & 1/2 TABLETS BY MOUTH EVERY DAY SOLD: 06/28/2020 [facility] Paroxetine Hydrochloride 40 MG Oral Tablet PAROXETINE HCL 12/27/2019 12:00:00 AM EDT tablet 90 TAKE 1 & 1/2 TABLETS BY MOUT H EVERY DAY TAKE 1 & 1/2 TABLETS BY MOUTH EVERY DAY SOLD: 04/29/2020 [facility] Paroxetine Hydrochloride 40 MG Oral Tablet PAROXETINE HCL 12/27/2019 12:00:00 AM EDT tablet 90 TAKE 1 & 1/2 TABLETS BY MOUT H EVERY DAY TAKE 1 & 1/2 TABLETS BY MOUTH EVERY DAY SOLD: 02/27/2020 [facility] Paroxetine Hydrochloride 40 MG Oral Tablet PAROXETINE [...] EVERY P.M. MAX DAILY DOSE=1&1/2TABS SOLD: 12/02/2019 [facility] 500 mg 11/28/2019 12:00:00 AM EDT [...] type / Coverage type Policy ID Covered republican ID Covered republican's relationship to spicer Policy Spicer Plan Information Medicare Natl Govt Servic Medicare Primary [id number] Self [id number] MEDICARE [id number] SP [id number] A MEDICARE [id number] SP [id number] A Medicare Natl Govt Servic Medicare Primary [id number] Self [id number] Medicare Natl Govt Servic Medicare Primary [id number] Self Medicare Natl Govt Servic Medicare Primary [id number] Self [id number] [facility] [id number] SP [id number] [facility] 303/803 [id number] SP [id number] [employer] Medicare Sol Commercial [id number] Self [id number] [facility] Commercial [id number] [facility] ([facility] Commercial [id number] [facility] ([facility]) Commercial [id number] [facility] ([facility]) Commercial [id number] [facility] ([facility]) Commercial [id number] [facility] ([facility]) Commercial [id number] Self [id number] MEDICARE COMPLETE [id number] SP [id number] MEDICARE COMPLETE [id number] SP [id number] MEDICARE C [id number] S [id number] A [facility] [id number] SP [id number] [employer] BCBS B [id number] S [id number] [id number] BS [place] [employer] Medigap Part B [id number] Self [id number] [facility]/Medicare Commercial [id number] Self [id number] [facility]/Medicare Solu Commercial [id number] Self [id number] MEDICARE COMPLETE [id number] SP [id number] BS [place] [employer] Medigap Part B [id number] Self [id number] MEDICARE COMPLETE[facility] O [id number] S [id number] Excellus [facility] Medigap Part B [id number] Self [id number]/332 Medicare [facility] Medicare Primary [id number] Self [facility] [id number] SP [id number] BC/BS Of [facility] Medigap Part B [id number] [place] Primary [id number] Self [employer] BCBS S [id number] S UQV [id number] BCBS ANTHEM O [id number] S UQVAN [id number] MEDICARE OUTPATIENT M [id number] S [id number] Problems, Conditions, and Diagnoses Code Display Name Description Problem Type Effective Dates Data Source(s) N39.43 [id number] Post-void dribbling Problem 11/27/2020 12:00 :00 AM EDT eCW1 ([facility]) Surgeries/Procedures Procedure Description Date Indications Data Source(s) OFFICE OUTPATIENT VISIT 25 MINUTES 10/18/2020 12:00:00 AM EDT [facility] ([facility]) OFFICE OUTPATIENT VISIT 15 MINUTES 09/25/2020 12:00:00 AM EDT [facility] ([facility]) PERIODIC PREVENTIVE MED EST PATIENT 65YRS&> 07/16/2020 12:00:00 AM EDT [facility] ([facility]) Results ID Date Data Source [id number] 12/28/2020 12:01:00 AM EDT MED[facility] ([facility]) Name Value Range Interpretation Code Description Data Kailyn rce(s) Supporting Document(s) Appearance, Urine RFX Laboratory test result [facility] ([facility]) Color, Urine RFX Laboratory test result [facility] PH,Urine RFX 5.0 units 5.0-9.0 [facility] ([facility]) Specific Taylor Ur Auto RFX 1.031 1.002-1.035 [facility] Protein, Urine Auto RFX Laboratory test result [facility] ([facility]) Glucose, Urine (Ua) Auto RFX Laboratory test result [facility] ([facility]) Ketone, Urine Auto RFX Laboratory test result [facility] ([facility]) Urobilinogen, Urine Auto RFX 2.0 mg/dL 0.0-2.0 [facility] ([facility]) Bilirubin, Urine Auto RFX Laboratory test result [facility] ([facility]) Nitrite, Urine Auto RFX Laboratory test result [facility] Leukocyte Esterase Ur Auto RFX Laboratory test result [facility] ([facility]) Blood, Urine Blood RFX Laboratory test result [facility] ([facility]) WBC, Urine Auto RFX 91 /HPF 0-3 [facility] ([facility]) RBC, Urine Auto RFX Laboratory test result 0-3 [facility] ([facility]) Bacteria, Urine Auto RFX Laboratory test result [facility] ([facility]) Squam Epithelial Cell Ur Aurfx 0 /HPF 0-6 [facility] ([facility]) Mucus, Urine RFX Laboratory test result [facility] ([facility]) Sperm, Urine Auto RFX Laboratory test result [facility] ([facility]) Hyaline Cast, Urine Auto RFX 0 /LPF 0-1 M EDENT ([facility]) ID Date Data Source [id number] 12/27/2020 10:57:00 PM EDT MED[facility] ([facility]) Name Value Range Interpretation Code Description Data Kailyn rce(s) Supporting Document(s) Blood Urea Nitrogen 28 mg/dL 7-18 [facility] ([facility]) Glucose, Fasting 119 mg/dL 70-100 [facility] ([facility]) Glomerular Filtration Rate 45.5 [facility] ([facility]) <content>Units are mL/min/1.73 m2</content>
<content></content>
<content>Chronic Kidney Disease Staging per NKF:</content>
<content></content>
<content>Stage I & II GFR >=60 Normal to Mildly Decreased</content>
<content>Stage III GFR 30-59 Moderately Decreased</content>
<content>Stage IV GFR 15-29 Severely Decreased</content>
<content>Stage V GFR <15 Very Little GFR Left</content>
<content>ESRD GFR <15 on RAISIN SEPARATOR OPERATOR</content>
<content></content> Creatinine For GFR 1.61 mg/dL 0.70-1.30 MED[facility] ([facility]) Sodium Level 141 meq/L 136-145 [facility] ([facility]) Chloride Level 108 meq/L 98-107 MED[facility] ([facility]) Potassium Serum 3.9 meq/L 3.5-5.1 MED[facility] ([facility]) Anion Gap 10 meq/L 8-16 [facility]) Carbon Dioxide Level 23 meq/L 21-32 [facility] ([facility]) Calcium Level 9.0 mg/dL 8.8-10.2 MED[facility] ([facility]) ID Date Data Source [id number] 12/27/2020 10:57:00 PM EDT MED[facility] ([facility]) Name Value Range Interpretation Code Description Data Kailyn rce(s) Supporting Document(s) White Blood Count 13.3 10 4.0-10.0 MEDENT ([facility]) Red Blood Count 4.49 10 4.30-6.10 MED[facility] ([facility]) Hemoglobin 13.3 g/dL 13.5-17.5 [facility] Hematocrit 40.3 % 42.0-52.0 [facility] Mean Corpuscular Volume 89.8 fl 80.0-96.0 [facility] ([facility]) Mean Corpuscular Hemoglobin 29.6 pg 27.0-33.0 ME DENT ([facility]) Mean Corpuscular HGB Conc 33.0 g/dL 32.0-36.5 MEDE NT ([facility]) Platelet Count, Automated 186 10 150-450 MEDE NT ([facility]) Red Cell Distribution Width 13.6 % 11.5-14.5 TN [facility] ([facility]) [place] % 7.0 % 2.0-8.0 [facility]) Lymph % 3.5 % 24.0-44.0 [facility]) Neutrophils % 88.6 % 36.0-66.0 [facility] ([facility]) Eos % 0.2 % 0.0-3.0 [facility]) Baso % 0.2 % 0.0-1.0 [facility]) Nucleated Red Blood Cell % 0.0 % 0-0 MED E[facility] ([facility]) Neutrophils # 11.8 10 1.5-8.5 [facility] ([facility]) Immature Granulocyte % 0.5 % 0-3.0 [facility] ([facility]) Lymph # 0.5 10 1.5-5.0 [facility]) [place] # 0.9 10 0.0-0.8 [facility] Eos # 0.0 10 0.0-0.5 [facility]) Baso # 0.0 10 0.0-0.2 MEDENT ([facility]) ID Date Data Source CT ABD & Pelvis w/o FOL by ALEJANDRA 12/03/2020 12:00:00 AM EDT eC W1 ([facility]) Name Value Range Interpretation Code Description Data Kailyn rce(s) Supporting Document(s) CT ABD & Pelvis w/o FOL by ALEJANDRA eCW1 ([facility]) ID Date Data Source Basic Metabolic Profile (BMP) 11/29/2020 12:00:00 AM EDT eCW 1 ([facility]) Name Value Range Interpretation Code Description Data Kailyn rce(s) Supporting Document(s) 25 7-18 BLOOD UREA NITROGEN eCW1 ([facility]) 159 70-100 GLUCOSE, FASTING eCW1 ([facility]) 4.3 3.5-5.1 POTASSIUM SERUM eCW1 ([facility]) 141 136-145 SODIUM LEVEL eCW1 ([facility]) 52.6 >49 GLOMERULAR FILTRATION RATE eCW 1 ([facility]) 1.42 0.70-1.30 CREATININE FOR GFR eCW1 ([facility]) 22 21-32 CARBON DIOXIDE LEVEL eCW1 ([facility]) 8.9 8.8-10.2 CALCIUM LEVEL eCW1 ([facility]) 107 98-107 CHLORIDE LEVEL eCW1 ([facility]) ID Date Data Source [id number] 10/18/2020 12:48:00 PM EDT MEDENT ([facility]) Name Value Range Interpretation Code Description Data Kailyn rce(s) Supporting Document(s) Bacteria identified in Urine by Culture Laboratory test result [facility] ([facility]) No Rx ID Date Data Source [id number] 07/16/2020 11:40:00 AM EDT MED[facility] ([facility]) Name Value Range Interpretation Code Description Data Kailyn rce(s) Supporting Document(s) Prostate specific Ag [Mass/volume] in Serum or Plasma 1.26 ng/mL [facility] ([facility]) This assay was performed on the Siemens Dimension EXL using the B- Galactosidase/CPRG methodology and should not be compared interchangeably with other methods. The PSA should not be used alone as a screening test for the presence or absence of malignant disease. ID Date Data Source [id number] 07/16/2020 11:39:00 AM EDT MED[facility] ([facility]) Name Value Range Interpretation Code Description Data Kailyn rce(s) Supporting Document(s) Microalbumin Urine 10.8 mg/L 1.3-20.0 [facility] Urine Creatinine 219.3 mg/dL 30.0-125.0 [facility] ([facility] Microalb/Creat Ratio 4.9 ug/mg 0.0-30.0 [facility] ID Date Data Source [id number] 07/16/2020 11:39:00 AM EDT [facility] ([facility]) Name Value Range Interpretation Code Description Data Kailyn rce(s) Supporting Document(s) Thyrotropin [Units/volume] in Serum or Plasma by Detec tion limit <= 0.05 mIU/L 2.20 uIU/mL 0.36-3.74 [facility] ([facility] ) ID Date Data Source [id number] 07/16/2020 11:39:00 AM EDT [facility] ([facility]) Name Value Range Interpretation Code Description Data Kailyn rce(s) Supporting Document(s) Cholesterol [Mass/volume] in Serum or Plasma 169 mg/dL 131-200 [facility] ([facility]) Cholesterol in HDL [Mass/volume] in Serum or Plasma 72 mg/dL 35-60 [facility] ([facility]) Triglyceride [Mass/volume] in Serum or Plasma 117 mg/dL 30-150 [facility] ([facility]) Cholesterol in LDL [Mass/volume] in Serum or Plasma by calcu lation 74 CALC 50-159 [facility] ([facility]) ID Date Data Source [id number] 07/16/2020 11:39:00 AM EDT [facility] ([facility]) Name Value Range Interpretation Code Description Data Kailyn rce(s) Supporting Document(s) Urea nitrogen [Mass/volume] in Serum or Plasma 25 mg/dL 7-18 [facility] ([facility]) Glucose [Mass/volume] in Serum or Plasma 128 mg/dL 74-99 [facility] ([facility]) 100-125 mg/dL PRE-DIABETES/FASTING >126 mg/dL DIABETES/FASTING Creatinine 1.4 mg/dL 0.6-1.3 [facility] ([facility]) Potassium [Moles/volume] in Serum or Plasma 4.3 meq/L 3.5-5.1 [facility] ([facility]) Sodium [Moles/volume] in Serum or Plasma 141 meq/L 136-145 [facility] ([facility]) Chloride [Moles/volume] in Serum or Plasma 103 meq/L 98-107 [facility] ([facility]) Calcium [Mass/volume] in Serum or Plasma 9.6 mg/dL 8.5-10.1 [facility] ([facility]) Carbon dioxide, total [Moles/volume] in Serum or Plasma 23 meq/L 21 -32 [facility] ([facility]) Total Bilirubin 0.4 mg/dL 0.2-1.0 [facility] ([facility]) Aspartate aminotransferase [Enzymatic activity/volume] in Serum or Plasma 20 U/L 15-37 [facility] ([facility] ) Alkaline phosphatase isoenzyme [Units/volume] in Serum or Pl asma 41 mg/dL 46-116 [facility] ([facility]) Albumin [Mass/volume] in Serum or Plasma 4.1 g/dL 3.4-5.0 [facility] ([facility]) Proteinase 3 Ab [Units/volume] in Serum 7.1 g/dL 6.4-8.2 [facility] ([facility]) Alanine aminotransferase [Enzymatic activity/volume] in Seru m or Plasma 28 U/L 12-78 [facility] ([facility]) A/G Ratio 1.37 CALC 1.00-1.90 [facility]) Glomerular filtration rate/1.73 sq M pre dicted among non-blacks [Volume Rate/Area] in Serum or Plasma by Creatinine-based formula (MDRD) 50 mL/min [facility] ([facility]) Glomerular filtration rate/1.73 sq M pre dicted among blacks [Volume Rate/Area] in Serum or Plasma by Creatinine-based formula (MDRD) Laboratory test result [facility] ([facility]) <content>CHRONIC KIDNEY DISEASE STAGING PER NKF</content>
<content></content>
<content>STAGE I & II GFR >= 60 NORMAL TO MILDLY DECREASED</content>
<content>STAGE III GFR 30-59 MODERATELY DECREASED</content>
<content>STAGE IV GFR 15-29 SEVERELY DECREASED</content>
<content>STAGE V GFR <15 VERY LITTLE GFR LEFT</content>
<content>ESRD GFR <15 ON RAISIN SEPARATOR OPERATOR</content>
<content></content> ID Date Data Source [id number] 07/16/2020 11:39:00 AM EDT [facility] Name Value Range Interpretation Code Description Data Kailyn rce(s) Supporting Document(s) Hemoglobin A1c/Hemoglobin.total in Blood 5.9 % [facility] ([facility]) Lab Result Notes: Pre-Diabetes 5.7 - 6.4 % Diabetes = or > 6.5% Glucose mean value [Mass/volume] in Blood Estimated fr om glycated hemoglobin 123 mg/dL 60-110 [facility] ID Date Data Source [id number] 02/08/2020 09:51:00 AM EST [facility] ([facility] Name Value Range Interpretation Code Description Data Kailyn rce(s) Supporting Document(s) Triglyceride [Mass/volume] in Serum or Plasma 129 mg/dL 30-150 [facility] ([facility]) Cholesterol [Mass/volume] in Serum or Plasma 179 mg/dL 131-200 [facility] ([facility]) Cholesterol in HDL [Mass/volume] in Serum or Plasma 63 mg/dL 35-60 [facility] ([facility]) Cholesterol in LDL [Mass/volume] in Serum or Plasma by calcu lation 90 CALC 50-159 [facility] ID Date Data Source [id number] 02/08/2020 09:51:00 AM EST [facility] ([facility]) Name Value Range Interpretation Code Description Data Kailyn rce(s) Supporting Document(s) Glucose [Mass/volume] in Serum or Plasma 172 mg/dL 74-99 [facility] ([facility]) 100-125 mg/dL PRE-DIABETES/FASTING >126 mg/dL DIABETES/FASTING Urea nitrogen [Mass/volume] in Serum or Plasma 29 mg/dL 7-18 [facility] ([facility]) Creatinine 1.5 mg/dL 0.6-1.3 [facility] ([facility]) Sodium [Moles/volume] in Serum or Plasma 141 meq/L 136-145 [facility] ([facility]) Chloride [Moles/volume] in Serum or Plasma 106 meq/L 98-107 [facility] ([facility]) Potassium [Moles/volume] in Serum or Plasma 4.0 meq/L 3.5-5.1 [facility] ([facility]) Carbon dioxide, total [Moles/volume] in Serum or Plasma 25 meq/L 21 -32 [facility] ([facility]) Calcium [Mass/volume] in Serum or Plasma 9.2 mg/dL 8.5-10.1 [facility] ([facility]) Total Bilirubin 0.5 mg/dL 0.2-1.0 [facility] ([facility]) Alkaline phosphatase isoenzyme [Units/volume] in Serum or Pl asma 39 mg/dL 46-116 [facility] ([facility]) Aspartate aminotransferase [Enzymatic activity/volume] in Serum or Plasma 19 U/L 15-37 [facility] ([facility] ) Alanine aminotransferase [Enzymatic activity/volume] in Seru m or Plasma 26 U/L 12-78 [facility] ([facility]) Albumin [Mass/volume] in Serum or Plasma 3.8 g/dL 3.4-5.0 [facility] ([facility]) Proteinase 3 Ab [Units/volume] in Serum 7.1 g/dL 6.4-8.2 [facility] ([facility]) A/G Ratio 1.15 CALC 1.00-1.90 [facility] Glomerular filtration rate/1.73 sq M pre dicted among non-blacks [Volume Rate/Area] in Serum or Plasma by Creatinine-based formula (MDRD) 47 mL/min [facility] ([facility]) Glomerular filtration rate/1.73 sq M pre dicted among blacks [Volume Rate/Area] in Serum or Plasma by Creatinine-based formula (MDRD) 56 mL/min [facility] ([facility]) <content>CHRONIC KIDNEY DISEASE STAGING PER NKF</content>
<content></content>
<content>STAGE I & II GFR >= 60 NORMAL TO MILDLY DECREASED</content>
<content>STAGE III GFR 30-59 MODERATELY DECREASED</content>
<content>STAGE IV GFR 15-29 SEVERELY DECREASED</content>
<content>STAGE V GFR <15 VERY LITTLE GFR LEFT</content>
<content>ESRD GFR <15 ON RAISIN SEPARATOR OPERATOR</content>
<content></content> ID Date Data Source [id number] 02/08/2020 09:51:00 AM EST [facility] ([facility]) Name Value Range Interpretation Code Description Data Kailyn rce(s) Supporting Document(s) Hemoglobin A1c/Hemoglobin.total in Blood 6.5 % [facility] ([facility]) Lab Result Notes: Pre-Diabetes 5.7 - 6.4 % Diabetes = or > 6.5% Glucose mean value [Mass/volume] in Blood Estimated fr om glycated hemoglobin 140 mg/dL 60-110 [facility] ([facility] ) ID Date Data Source [id number] 02/08/2020 09:51:00 AM EST [facility] ([facility]) Name Value Range Interpretation Code Description Data Kailyn rce(s) Supporting Document(s) Hemoglobin A1c/Hemoglobin.total in Blood Laboratory test result [facility] Procedure Social History Code Duration Value Status Description Data Source(s ) Smoking 11/27/2020 12:00:00 AM EDT Former Smoker completed Former Smoker eC ([facility]) Smoking 11/27/2020 12:00:00 AM EDT Former Smoker completed Former Smoker eCW1 ([facility]) Smoking 10/18/2020 12:00:00 AM EDT Quit completed Quit [facility] ([facility]) Vital Signs ID Date Data Source UNK Name Value Range Interpretation Code Description Data Source(s) Body weight 190.4 [lb_av] 190.4 [lb_av] eCW1 ([facility]) Body height 64 [in_i] 64 [in_i] eCW1 ([facility]) Body mass index (BMI) [Ratio] 32.68 kg/m2 32.68 kg/m2 eCW1 ([facility]) Heart rate 81 /min 81 /min eCW1 ([facility]) Respiratory rate 18 /min 18 /min eCW1 ([facility]) Body temperature 97.6 [degF] 97.6 [degF] eCW1 ( [facility]) Systolic blood pressure 132 mm[Hg] 132 mm[Hg] e CW1 ([facility]) Diastolic blood pressure 78 mm[Hg] 78 mm[Hg] eCW1 ([facility]) Body mass index (BMI) [Ratio] 31.9 kg/m2 31.9 k g/m2 [facility] ([facility]) Body height 64 [in_i] 64 [in_i] [facility] ([facility], [facility]) 5'4" Systolic blood pressure 116 mm[Hg] 116 mm[Hg] M EDENT ([facility], [facility]) Diastolic blood pressure 74 mm[Hg] 74 mm[Hg] [facility] ([facility], [facility]) Heart rate 102 /min 102 /min [facility] ([facility], [facility]) Respiratory rate 16 /min 16 /min [facility] ( [facility], [facility]) Oxygen saturation in Arterial blood by Pulse oximetry 97 % 97 % [facility] ([facility], [facility]) Body temperature 96.2 [degF] 96.2 [degF] [facility] ([facility], [facility]) Body weight 186.00 [lb_av] 186.00 [lb_av] MEDEN T ([facility], [facility]) Systolic blood pressure 111 mm[Hg] 111 mm[Hg] M EDENT ([facility]) Diastolic blood pressure 69 mm[Hg] 69 mm[Hg] [facility] ([facility]) Heart rate 87 /min 87 /min [facility] ([facility]) Body height 64 [in_i] 64 [in_i] [facility] ([facility]) 5'4" Body weight 189.00 [lb_av] 189.00 [lb_av] MED[facility] T ([facility]) Body mass index (BMI) [Ratio] 32.4 kg/m2 32.4 k g/m2 [facility] ([facility]) Systolic blood pressure 120 mm[Hg] 120 mm[Hg] [facility] ([facility]) Diastolic blood pressure 70 mm[Hg] 70 mm[Hg] [facility] ([facility]) Heart rate 89 /min 89 /min [facility] ([facility]) Body height 64 [in_i] 64 [in_i] [facility] ([facility]) 5'4" Body weight 194.12 [lb_av] 194.12 [lb_av] MEDEN T ([facility]) Oxygen saturation in Arterial blood by Pulse oximetry 97 % 97 % [facility] ([facility]) Air Body mass index (BMI) [Ratio] 33.3 kg/m2 33.3 k g/m2 [facility] ([facility]) Diastolic blood pressure 82 mm[Hg] 82 mm[Hg] [facility] ([facility]) Body weight 199.00 [lb_av] 199.00 [lb_av] MEDEN T ([facility]) Heart rate 94 /min 94 /min [facility] ([facility]) Body height 64 [in_i] 64 [in_i] [facility] ([facility]) 5'4" Oxygen saturation in Arterial blood by Pulse oximetry 97 % 97 % [facility] ([facility]) Systolic blood pressure 112 mm[Hg] 112 mm[Hg] [facility] ([facility]) Body mass index (BMI) [Ratio] 34.2 kg/m2 34.2 k g/m2 [facility] ([facility]) Body temperature 98.6 [degF] 98.6 [degF] [facility] ([facility] ) Body height 62.5 [in_i] 62.5 [in_i] ISABELL ( [facility] ) 5'2.50" Body weight 195.12 [lb_av] 195.12 [lb_av] LEANNA Gregory ([facility] ) Body mass index (BMI) [Ratio] 35.1 kg/m2 35.1 k g/m2 ISABELL ([facility] )
--- OUTSIDE RECORDS SUMMARY | 2020-12-30 17:39 | CCD | Continuity of Care Document ---
Author Author Ganesh HERNANDEZ M.D. Organization Unknown Address [address] [address] Phone [phone] Care Team Providers Care Network Control Supervisor Name Role Phone Mio Hernandez MD AUT[facility] [phone] Filomena Dozier OD AUT[facility] Unavailable Austin Fung MD [facility] [phone] Davon Olivo MD [facility] [phone] Rochelle Joseph MD [facility] [phone] Problems Active Problems Provider Date Eruption Onset: [...] Vaccine Lot # U-Flu Given 01/20/2020 Influenza,Unspecified [id number] Given 01/11/2019 Influenza Vaccin e Quadrivalent Preser/Antibiotic Free Im Use [id number] Given 02/16/2018 Influenza Virus Vaccine, Quadrivalent ([id number]), Derived From 6 Given 01/26/2017 Influenza Vaccin e Quadrivalent Preser/Antibiotic Free Im Use [id number] Given 01/22/2016 Fluvirin Virus Vaccine [id number] 01 [id number] Given 01/04/2015 Fluvirin Virus Vaccine 92455 01 44444 Given 12/29/2013 Influenza Virus Vaccine 04446 Given 12/16/2012 Influenza Virus Vaccine 24192 Given 12/03/2011 Influenza Virus Vaccine 91782 Given 01/13/2011 Influenza Virus Vaccine 54225 Given 12/25/2009 Influenza Virus Vaccine 70241 Given 12/14/2009 Influenza Virus Vaccine 62113 Given 03/16/2005 Adacel- Tetanus Diphtheria P ertussis [...] Note Ua W/ Reflex To Culture 12/28/[address] [id number] [phone] Appearance, Urine RFX CLOUDY High Clear Color, Urine RFX YANIRA Normal Yellow PH,Urine RFX 5.0 units Normal 5.0-9.0 Specific Lefor Ur Auto RFX 1.031 Normal 1.002-1.035 Protein, [...] /LPF Normal 0-1 CBC With Differential 12/27/[address] [id number] [phone] White Blood Count 13.3 10 High 4.0-10.0 [...] 36.0-66.0 Lymph % 3.5 % Low 24.0-44.0 Gosper % 7.0 % Normal 2.0-8.0 Eos % 0.2 % Normal 0.0-3.0 Baso % 0.2 % Normal 0.0-1.0 Immature Granulocyte % 0.5 % Normal 0-3.0 Nucleated Red Blood Cell % 0.0 % Normal 0-0 Neutrophils # 11.8 10 High 1.5-8.5 Lymph # 0.5 10 Low 1.5-5.0 Gosper # 0.9 10 High 0.0-0.8 Eos # 0.0 10 Normal 0.0-0.5 Baso # 0.0 10 Normal 0.0-0.2 Basic Metabolic Profile 12/27/2020 [facility] [address] [place], [place] [id number] [phone] Glucose, Fasting 119 mg/dL High 70-100 Blood [...] mg/dL Normal 8.8-10.2 Laboratory test finding 07/16/2020 [facility] Record Press Operator: [place] [address] [phone] PSA 1.26 ng/mL <4.00 2 A1c 07/16/2020 [facility] , Record Press Operator: [place] [address] [phone] Hba1c 5.9 % High <5.7 3 Est Avg Glucose 123 mg/dL High 60 - 110 Comprehensive Chem Profile 07/16/2020 [facility], Record Press Operator: [place] [address] [phone] Glucose 128 mg/dL High 74 - 99 [...] 60 mL/min >60 5 Lipid Profile 07/16/2020 [facility] , Record Press Operator: [place] [address] [phone] Cholesterol 169 mg/dL 131 - 200 Triglycerides 117 mg/dL 30 - 150 HDL Cholesterol 72 mg/dL High 35 - 60 LDL (Calculated) 74 CALC 50 - 159 Laboratory test finding 07/16/2020 [facility] Record Press Operator: [place] [address] [phone] Thyroid Stimulating Hormone 2.20 uIU/mL 0.3 6 - 3.74 Microalbumin/Creatinine Urine 07/16/2020 [facility] Record Press Operator: Dr Foreign [address]ley [place], [place] [id number] [phone] Microalbumin Urine 10.8 mg/L 1.3 - 20.0 [...] Little GFR Left ESRD GFR <15 on ELECTRIC RAZOR MECHANIC 2 This assay was performed on the [employer] EXL using the B- Galactosidase/CPRG methodology and [...] LITTLE GFR LEFT ESRD GFR <15 ON ELECTRIC RAZOR MECHANIC Procedures Date Code Description Status 09/25/2020 66780 Office/Outpatient Established Lo w MDM 20-29 Min Completed 07/16/2020 12673 Est Prevent Med (65Yrs&Ovr) Comp leted 01/10/2019 [id number] Colonoscopy Completed 06/05/2017 [id number] Diabetic Retinal Eye Exam Comple ori 01/26/2008 [id number] Colonoscopy Completed Medical Devices Description No Information Available Encounters Type Date Location Provider Dx Diagnosis Office Visit 09/25/2020 3:30p [facility] Mio Hernandez M.D. R30.0 Dysuria [...] brain, un specified Office Visit 07/16/2020 10:30a [facility] Mio Hernandez M.D. N40.0 Benign [...] 01/22/2021 9:50 am - Lab Schedule at [facility] * 01/23/2021 3:00 pm - [facility] 09/25/2020 - Mio Hernandez M.D.* R30.0 [...] is on Keppra. He sees Neurology at [facility] and will continue appropriate follow up.11. Chronic kidney disease, stage 3: Improved kidney function. He should be careful with NSAIDs usage and will continue to avoid nephrotoxins. 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 He follows up with neurosurgery in [place] and will continue appropriately.Ongoing cares: I am going to see him again in 4-5 months with CMP, lipids, CBC and A1c. If he has new problems or issues sooner he will let us know. Functional Status Description No Information Available Mental Status Description No Information Available Referrals Description No Information Available
[2020-12-30] MEDS ORDERED: NS 1,000 ML IV ONE (20:40)
--- OUTSIDE RECORDS SUMMARY | 2020-12-30 20:47 | CCD ---
Author Author [facility] Organization [facility] Address Unknown Phone Unavailable Care Team Providers Care Precision Machining Instructor Name Role Phone Jumana Haji MD Unavailable [...] Unavailable Jumana Haji MD Unavailable Unavailable Jumana Haij MD Unavailable Unavailable Jumana Haji MD Unavailable [...] is protected by Article 27-F of the [place] law. If you continue you may have access to information: Regarding HIV / AIDS; Provided by facilities licensed or operated by the [place] Office of Mental Health; or Provided by the [place] Office for People With Developmental Disabilities. If such information is present, then the following [place] mandated warning applies: This information has been [...] law may result in a fine or senior living sentence or both. A general authorization for the release of medical or other information is NOT sufficient authorization for further disc losure. Family History Family Member Name Family Member Gender Family Member Status Date o f Status Description Data Source(s) Unknown Male Problem [facility] ([facility]) Unknown Unknown Problem [facility] Unknown Male Problem [facility] ([facility]) Unknown Male Problem MEDENT ([facility] ) Unknown Male Problem MED[facility] ([facility]) Unknown Unknown Encounters Encounter Providers Location Date Indications Data Source(s ) Unknown [address] [facility] [facility] [address] 12/19/2020 12:00:00 AM EDT eCW1 [facility] Outpatient [address] [facility] [address] 11/27/2020 12:00:00 AM EDT eCW1 ([facility]) Outpatient Attender: BRENNEN Reynolds 10/18/2020 12:45:00 PM EDT [facility] ([facility]) Outpatient Attender: Mio Mcgraw 09/25 03:30:00 PM EDT MED[facility] ([facility] ) Outpatient Attender: Mio Mcgraw 07/16 10:30:00 AM EDT MED[facility] ([facility] ) Outpatient Attender: Mio Mcgraw 02/07 09:00:00 AM EST MEDENT ([facility] ) Outpatient Attender: HAYLEE SALDANA Physical [facility] 12/29/2019 12:45:00 PM EDT MED[facility] ([facility]) Immunizations Vaccine Date Status Description Data Source(s) COVID-19 VACCINE Pfizer 05/05/2020 12:00:00 AM EST completed [facility] Vaccine Series Complete: YESThis Data wa s Submitted to [facility] Via [facility] The Wellness Team. COVID-19 VACCINE, MRNA, [id number], LNP-S (PFIZER)/PF 05/05/19 12:00:00 AM EST completed [facility] COVID-19 VACCINE Pfizer 04/15/2020 12:00:00 AM EST completed [facility] Vaccine Series Complete: NOThis Data was Submitted to [facility] Via [facility] The Wellness Team. COVID-19 VACCINE, MRNA, [id number], LNP-S (PFIZER)/PF 04/15/19 12:00:00 AM EST completed [facility] This CVX code allows reporting of a vacc ination when formulation is unknown (for example, when recording a Influenza vaccination when noted on a vaccination card) 01/20/2020 11:48:00 AM EST completed LEANNA Gregory ([facility]) INFLUENZA VACCINE QUADRIVALENT (65 YR UP)/[id number] [...] 07/23/2020 12:00:00 AM EDT [place] MED[facility] ([facility]) BLOOD SUGAR DIAGNOSTIC 07/23/2020 12:00:00 AM [...] 07/16/2020 12:00:00 AM E DT active MED[facility] ([facility]) 0.5 mg 06/29/2020 12:00:00 AM EDT [...] Unspecified 05/05/2020 12:00:00 AM EST completed [facility] ([facility]) Medication administered onsite 0.5 mg [...] Unspecified 04/15/2020 12:00:00 AM EST completed [facility] ([facility]) Medication administered onsite 0.5 mg [...] type / Coverage type Policy ID Covered alliance party ID Covered alliance party's relationship to spicer Policy Spicer Plan Information Medicare Natl Govt Servic Medicare Primary [id number] Self [id number] MEDICARE [id number] SP [id number] A MEDICARE [id number] SP [id number] A Medicare Natl Govt Servic Medicare Primary [id number] Self [id number] Medicare Natl Govt Servic Medicare Primary [id number] Self Medicare Natl Govt Servic Medicare Primary [id number] Self [id number] [facility] 303/803 [id number] SP [id number] [facility] 303/803 [id number] SP [id number] [employer] Medicare Sol Commercial [id number] Self [id number] 00 [facility] Commercial [id number] Self [id number] [facility] ([facility]) Commercial [id number] Self [id number] [facility] ([facility]) Commercial [id number] Self [id number] [facility] ([facility]) Commercial [id number] Self [id number] [facility] ([facility]) Commercial [id number] Self [id number] [facility] ([facility]) Commercial [id number] Self [id number] MEDICARE COMPLETE [id number] SP [id number] MEDICARE COMPLETE [id number] SP [id number] MEDICARE C [id number] S [id number] A [facility] [id number] SP [id number] [employer] BCBS B [id number] S UQV [id number] BS [place] [employer] Medigap Part B [id number] Self [id number] [facility]/Medicare Commercial [id number] Self [id number] [facility]/Medicare Solu Commercial [id number] Self [id number] MEDICARE COMPLETE [id number] SP [id number] BS [place] [employer] Medigap Part B [id number] Self [id number] MEDICARE COMPLETE-[facility] O [id number] S [id number] Excell[employer] [facility] Medigap Part B [id number] Self [id number]/332 Medicare [facility] Medicare Primary [id number] Self [facility] [id number] SP [id number] BC/BS Of [facility] Medigap Part B [id number] [place] Primary [id number] Self EXCELLUS BCBS S [id number] S UQV [id number] BCBS ANTHEM O [id number] S UQVAN [id number] MEDICARE OUTPATIENT M [id number] S [id number] Problems, Conditions, and Diagnoses Code Display Name Description Problem Type Effective Dates Data Source(s) N39.43 [id number] Post-void dribbling Problem 11/27/2020 12:00 :00 AM EDT eCW1 ([facility]) Surgeries/Procedures Procedure Description Date Indications Data Source(s) OFFICE OUTPATIENT VISIT 25 MINUTES 10/18/2020 12:00:00 AM EDT MEDENT ([facility]) OFFICE OUTPATIENT VISIT 15 MINUTES 09/25/2020 12:00:00 AM EDT [facility] ([facility]) PERIODIC PREVENTIVE MED EST PATIENT 66YRS&> 07/16/2020 12:00:00 AM EDT [facility] ([facility]) Results ID Date Data Source [id number] 12/28/2020 12:01:00 AM EDT MEDENT ([facility]) Name Value Range Interpretation Code Description Data Kailyn rce(s) Supporting Document(s) Appearance, Urine RFX Laboratory test result [facility] ([facility]) Color, Urine RFX Laboratory test result [facility] PH,Urine RFX 5.0 units 5.0-9.0 [facility] ([facility]) Specific [place] Ur Auto RFX 1.031 1.002-1.035 [facility] Protein, Urine Auto RFX Laboratory test result [facility] ([facility]) Glucose, Urine (Ua) Auto RFX Laboratory test result [facility] ([facility]) Ketone, Urine Auto RFX Laboratory test result [facility] ([facility]) Urobilinogen, Urine Auto RFX 2.0 mg/dL 0.0-2.0 [facility] ([facility]) Bilirubin, Urine Auto RFX Laboratory test result [facility] ([facility]) Nitrite, Urine Auto RFX Laboratory test result [facility] ([facility] Leukocyte Esterase Ur Auto RFX Laboratory test result [facility] ([facility]) Blood, Urine Blood RFX Laboratory test result [facility] ([facility]) WBC, Urine Auto RFX 91 /HPF 0-3 MED[facility] ([facility]) RBC, Urine Auto RFX Laboratory test result 0-3 MED[facility] ([facility]) Bacteria, Urine Auto RFX Laboratory test result [facility] ([facility]) Squam Epithelial Cell Ur Aurfx 0 /HPF 0-6 [facility] ([facility]) Mucus, Urine RFX Laboratory test result [facility] ([facility]) Sperm, Urine Auto RFX Laboratory test result [facility] ([facility]) Hyaline Cast, Urine Auto RFX 0 /LPF 0-1 M EDENT ([facility]) ID Date Data Source [id number] 12/27/2020 10:57:00 PM EDT MED[facility] ([facility]) Name Value Range Interpretation Code Description Data Kailyn rce(s) Supporting Document(s) Blood Urea Nitrogen 28 mg/dL 7-18 MED[facility] ([facility]) Glucose, Fasting 119 mg/dL 70-100 MED[facility] ([facility]) Glomerular Filtration Rate 45.5 MED ENT ([facility]) <content>Units are mL/min/1.73 m2</content>
<content></content>
<content>Chronic Kidney Disease Staging per NKF:</content>
<content></content>
<content>Stage I & II GFR >=60 Normal to Mildly Decreased</content>
<content>Stage III GFR 30-59 Moderately Decreased</content>
<content>Stage IV GFR 15-29 Severely Decreased</content>
<content>Stage V GFR <15 Very Little GFR Left</content>
<content>ESRD GFR <15 on COLOR CHECKER</content>
<content></content> Creatinine For GFR 1.61 mg/dL 0.70-1.30 MED[facility] ([facility]) Sodium Level 141 meq/L 136-145 MED[facility] ([facility]) Chloride Level 108 meq/L 98-107 MED[facility] ([facility]) Potassium Serum 3.9 meq/L 3.5-5.1 MED[facility] ([facility]) Anion Gap 10 meq/L 8-16 [facility] ([facility]) Carbon Dioxide Level 23 meq/L 21-32 MED[facility] ([facility]) Calcium Level 9.0 mg/dL 8.8-10.2 MEDENT ([facility]) ID Date Data Source [id number] 12/27/2020 10:57:00 PM EDT MEDENT ([facility]) Name Value Range Interpretation Code Description Data Kailyn rce(s) Supporting Document(s) White Blood Count 13.3 10 4.0-10.0 MED[facility] ([facility]) Red Blood Count 4.49 10 4.30-6.10 [facility] ([facility]) Hemoglobin 13.3 g/dL 13.5-17.5 [facility] Hematocrit 40.3 % 42.0-52.0 [facility] Mean Corpuscular Volume 89.8 fl 80.0-96.0 MED[facility] ([facility]) Mean Corpuscular Hemoglobin 29.6 pg 27.0-33.0 ME DENT ([facility]) Mean Corpuscular HGB Conc 33.0 g/dL 32.0-36.5 MEDE NT ([facility]) Platelet Count, Automated 186 10 150-450 MEDE NT ([facility]) Red Cell Distribution Width 13.6 % 11.5-14.5 PR DENT ([facility]) [place] % 7.0 % 2.0-8.0 [facility] ([facility]) Lymph % 3.5 % 24.0-44.0 [facility] ([facility]) Neutrophils % 88.6 % 36.0-66.0 MED[facility] ([facility]) Eos % 0.2 % 0.0-3.0 [facility] ([facility]) Baso % 0.2 % 0.0-1.0 [facility] ([facility]) Nucleated Red Blood Cell % 0.0 % 0-0 MED ENT ([facility]) Neutrophils # 11.8 10 1.5-8.5 [facility] ([facility]) Immature Granulocyte % 0.5 % 0-3.0 MED[facility] ([facility]) Lymph # 0.5 10 1.5-5.0 [facility] ([facility]) [place] # 0.9 10 0.0-0.8 [facility] ([facility]) Eos # 0.0 10 0.0-0.5 [facility] ([facility]) Baso # 0.0 10 0.0-0.2 MEDENT ([facility]) ID Date Data Source CT ABD & Pelvis w/o FOL by ALEJANDRA 12/03/2020 12:00:00 AM EDT eC W1 ([facility]) Name Value Range Interpretation Code Description Data Kailyn rce(s) Supporting Document(s) CT ABD & Pelvis w/o FOL by ALEJANDRA eCW1 ([facility]) ID Date Data Source Basic Metabolic Profile (BMP) 11/29/2020 12:00:00 AM EDT eCW 1 ([facility]) Name Value Range Interpretation Code Description Data Kailyn rce(s) Supporting Document(s) 25 7-18 BLOOD UREA NITROGEN eCW1 ([facility]) 159 70-100 GLUCOSE, FASTING eCW1 ([facility]) 4.3 3.5-5.1 POTASSIUM SERUM eCW1 ([facility]) 141 136-145 SODIUM LEVEL eCW1 ([facility]) 52.6 >49 GLOMERULAR FILTRATION RATE eCW 1 ([facility]) 1.42 0.70-1.30 CREATININE FOR GFR eCW1 ([facility]) 22 21-32 CARBON DIOXIDE LEVEL eCW1 ([facility]) 8.9 8.8-10.2 CALCIUM LEVEL eCW1 ([facility]) 107 98-107 CHLORIDE LEVEL eCW1 ([facility]) ID Date Data Source [id number] 10/18/2020 12:48:00 PM EDT MEDENT ([facility]) Name Value Range Interpretation Code Description Data Kailyn rce(s) Supporting Document(s) Bacteria identified in Urine by Culture Laboratory test result [facility] ([facility]) No Rx ID Date Data Source [id number] 07/16/2020 11:40:00 AM EDT MEDENT ([facility]) Name Value Range Interpretation Code Description Data Kailyn rce(s) Supporting Document(s) Prostate specific Ag [Mass/volume] in Serum or Plasma 1.26 ng/mL MEDENT ([facility]) This assay was performed on the Siemens Dimension EXL using the B- Galactosidase/CPRG methodology and should not be compared interchangeably with other methods. The PSA should not be used alone as a screening test for the presence or absence of malignant disease. ID Date Data Source [id number] 07/16/2020 11:39:00 AM EDT MEDENT ([facility]) Name Value Range Interpretation Code Description Data Kailyn rce(s) Supporting Document(s) Microalbumin Urine 10.8 mg/L 1.3-20.0 [facility] Urine Creatinine 219.3 mg/dL 30.0-125.0 [facility] Microalb/Creat Ratio 4.9 ug/mg 0.0-30.0 [facility] ID Date Data Source [id number] 07/16/2020 11:39:00 AM EDT MED[facility] ([facility]) Name Value Range Interpretation Code Description Data Kailyn rce(s) Supporting Document(s) Thyrotropin [Units/volume] in Serum or Plasma by Detec tion limit <= 0.05 mIU/L 2.20 uIU/mL 0.36-3.74 [facility] ([facility] ) ID Date Data Source [id number] 07/16/2020 11:39:00 AM EDT MED[facility] ([facility]) Name Value Range Interpretation Code Description Data Kailyn rce(s) Supporting Document(s) Cholesterol [Mass/volume] in Serum or Plasma 169 mg/dL 131-200 [facility] ([facility]) Cholesterol in HDL [Mass/volume] in Serum or Plasma 72 mg/dL 35-60 [facility] ([facility]) Triglyceride [Mass/volume] in Serum or Plasma 117 mg/dL 30-150 [facility] ([facility]) Cholesterol in LDL [Mass/volume] in Serum or Plasma by calcu lation 74 CALC 50-159 [facility] ([facility]) ID Date Data Source [id number] 07/16/2020 11:39:00 AM EDT MED[facility] ([facility]) Name Value Range Interpretation Code Description Data Kailyn rce(s) Supporting Document(s) Urea nitrogen [Mass/volume] in Serum or Plasma 25 mg/dL 7-18 [facility] ([facility]) Glucose [Mass/volume] in Serum or Plasma 128 mg/dL 74-99 [facility] ([facility]) 100-125 mg/dL PRE-DIABETES/FASTING >126 mg/dL DIABETES/FASTING Creatinine 1.4 mg/dL 0.6-1.3 [facility] ([facility]) Potassium [Moles/volume] in Serum or Plasma 4.3 meq/L 3.5-5.1 [facility] ([facility]) Sodium [Moles/volume] in Serum or Plasma 141 meq/L 136-145 [facility] ([facility]) Chloride [Moles/volume] in Serum or Plasma 103 meq/L 98-107 [facility] ([facility]) Calcium [Mass/volume] in Serum or Plasma 9.6 mg/dL 8.5-10.1 [facility] ([facility]) Carbon dioxide, total [Moles/volume] in Serum or Plasma 23 meq/L 21 -32 [facility] ([facility]) Total Bilirubin 0.4 mg/dL 0.2-1.0 [facility] ([facility]) Aspartate aminotransferase [Enzymatic activity/volume] in Serum or Plasma 20 U/L 15-37 [facility] ([facility] ) Alkaline phosphatase isoenzyme [Units/volume] in Serum or Pl asma 41 mg/dL 46-116 [facility] ([facility]) Albumin [Mass/volume] in Serum or Plasma 4.1 g/dL 3.4-5.0 [facility] ([facility]) Proteinase 3 Ab [Units/volume] in Serum 7.1 g/dL 6.4-8.2 [facility] ([facility]) Alanine aminotransferase [Enzymatic activity/volume] in Seru m or Plasma 28 U/L 12-78 [facility] ([facility]) A/G Ratio 1.37 CALC 1.00-1.90 [facility] ([facility]) Glomerular filtration rate/1.73 sq M pre dicted among non-blacks [Volume Rate/Area] in Serum or Plasma by Creatinine-based formula (MDRD) 50 mL/min [facility] ([facility]) Glomerular filtration rate/1.73 sq M pre dicted among blacks [Volume Rate/Area] in Serum or Plasma by Creatinine-based formula (MDRD) Laboratory test result [facility] ([facility]) <content>CHRONIC KIDNEY DISEASE STAGING PER NKF</content>
<content></content>
<content>STAGE I & II GFR >= 60 NORMAL TO MILDLY DECREASED</content>
<content>STAGE III GFR 30-59 MODERATELY DECREASED</content>
<content>STAGE IV GFR 15-29 SEVERELY DECREASED</content>
<content>STAGE V GFR <15 VERY LITTLE GFR LEFT</content>
<content>ESRD GFR <15 ON COLOR CHECKER</content>
<content></content> ID Date Data Source [id number] 07/16/2020 11:39:00 AM EDT [facility] Name Value Range Interpretation Code Description Data Kailyn rce(s) Supporting Document(s) Hemoglobin A1c/Hemoglobin.total in Blood 5.9 % [facility] ([facility]) Lab Result Notes: Pre-Diabetes 5.7 - 6.4 % Diabetes = or > 6.5% Glucose mean value [Mass/volume] in Blood Estimated fr om glycated hemoglobin 123 mg/dL 60-110 [facility] ([facility] ID Date Data Source [id number] 02/08/2020 09:51:00 AM EST [facility] ([facility] Name Value Range Interpretation Code Description Data Kailyn rce(s) Supporting Document(s) Triglyceride [Mass/volume] in Serum or Plasma 129 mg/dL 30-150 [facility] ([facility]) Cholesterol [Mass/volume] in Serum or Plasma 179 mg/dL 131-200 [facility] ([facility]) Cholesterol in HDL [Mass/volume] in Serum or Plasma 63 mg/dL 35-60 [facility] ([facility]) Cholesterol in LDL [Mass/volume] in Serum or Plasma by calcu lation 90 CALC 50-159 [facility]) ID Date Data Source [id number] 02/08/2020 09:51:00 AM EST [facility] ([facility]) Name Value Range Interpretation Code Description Data Kailyn rce(s) Supporting Document(s) Glucose [Mass/volume] in Serum or Plasma 172 mg/dL 74-99 [facility] ([facility]) 100-125 mg/dL PRE-DIABETES/FASTING >126 mg/dL DIABETES/FASTING Urea nitrogen [Mass/volume] in Serum or Plasma 29 mg/dL 7-18 [facility] ([facility]) Creatinine 1.5 mg/dL 0.6-1.3 [facility] ([facility]) Sodium [Moles/volume] in Serum or Plasma 141 meq/L 136-145 [facility] ([facility]) Chloride [Moles/volume] in Serum or Plasma 106 meq/L 98-107 [facility] ([facility]) Potassium [Moles/volume] in Serum or Plasma 4.0 meq/L 3.5-5.1 [facility] ([facility]) Carbon dioxide, total [Moles/volume] in Serum or Plasma 25 meq/L 21 -32 [facility] ([facility]) Calcium [Mass/volume] in Serum or Plasma 9.2 mg/dL 8.5-10.1 [facility] ([facility]) Total Bilirubin 0.5 mg/dL 0.2-1.0 [facility] ([facility]) Alkaline phosphatase isoenzyme [Units/volume] in Serum or Pl asma 39 mg/dL 46-116 [facility] ([facility]) Aspartate aminotransferase [Enzymatic activity/volume] in Serum or Plasma 19 U/L 15-37 [facility] ([facility] ) Alanine aminotransferase [Enzymatic activity/volume] in Seru m or Plasma 26 U/L 12-78 [facility] ([facility]) Albumin [Mass/volume] in Serum or Plasma 3.8 g/dL 3.4-5.0 [facility] ([facility]) Proteinase 3 Ab [Units/volume] in Serum 7.1 g/dL 6.4-8.2 [facility] ([facility]) A/G Ratio 1.15 CALC 1.00-1.90 [facility] ([facility]) Glomerular filtration rate/1.73 sq M pre dicted among non-blacks [Volume Rate/Area] in Serum or Plasma by Creatinine-based formula (MDRD) 47 mL/min [facility] ([facility]) Glomerular filtration rate/1.73 sq M pre dicted among blacks [Volume Rate/Area] in Serum or Plasma by Creatinine-based formula (MDRD) 56 mL/min [facility] ([facility]) <content>CHRONIC KIDNEY DISEASE STAGING PER NKF</content>
<content></content>
<content>STAGE I & II GFR >= 60 NORMAL TO MILDLY DECREASED</content>
<content>STAGE III GFR 30-59 MODERATELY DECREASED</content>
<content>STAGE IV GFR 15-29 SEVERELY DECREASED</content>
<content>STAGE V GFR <15 VERY LITTLE GFR LEFT</content>
<content>ESRD GFR <15 ON COLOR CHECKER</content>
<content></content> ID Date Data Source [id number] 02/08/2020 09:51:00 AM EST [facility] ([facility]) Name Value Range Interpretation Code Description Data Kailyn rce(s) Supporting Document(s) Hemoglobin A1c/Hemoglobin.total in Blood 6.5 % [facility] ([facility]) Lab Result Notes: Pre-Diabetes 5.7 - 6.4 % Diabetes = or > 6.5% Glucose mean value [Mass/volume] in Blood Estimated fr om glycated hemoglobin 140 mg/dL 60-110 [facility] ([facility] ) ID Date Data Source [id number] 02/08/2020 09:51:00 AM EST [facility] ([facility]) Name Value Range Interpretation Code Description Data Kailyn rce(s) Supporting Document(s) Hemoglobin A1c/Hemoglobin.total in Blood Laboratory test result [facility]) Procedure Social History Code Duration Value Status Description Data Source(s ) Smoking 11/27/2020 12:00:00 AM EDT Former Smoker completed Former Smoker eC ([facility]) Smoking 11/27/2020 12:00:00 AM EDT Former Smoker completed Former Smoker eCW1 ([facility]) Smoking 10/18/2020 12:00:00 AM EDT Quit completed Quit [facility] ([facility]) Vital Signs ID Date Data Source UNK Name Value Range Interpretation Code Description Data Source(s) Body weight 190.4 [lb_av] 190.4 [lb_av] eCW1 ([facility]) Body height 64 [in_i] 64 [in_i] eCW1 ([facility]) Body mass index (BMI) [Ratio] 32.68 kg/m2 32.68 kg/m2 eCW1 ([facility]) Heart rate 81 /min 81 /min eCW1 ([facility]) Respiratory rate 18 /min 18 /min eCW1 ([facility]) Body temperature 97.6 [degF] 97.6 [degF] eCW1 ( [facility]) Systolic blood pressure 132 mm[Hg] 132 mm[Hg] e CW1 ([facility]) Diastolic blood pressure 78 mm[Hg] 78 mm[Hg] eCW1 ([facility]) Body mass index (BMI) [Ratio] 31.9 kg/m2 31.9 k g/m2 [facility] ([facility], [facility]) Body height 64 [in_i] 64 [in_i] [facility] ([facility], [facility]) 5'4" Systolic blood pressure 116 mm[Hg] 116 mm[Hg] M EDENT ([facility], [facility]) Diastolic blood pressure 74 mm[Hg] 74 mm[Hg] [facility] ([facility], [facility]) Heart rate 102 /min 102 /min [facility] ([facility], [facility]) Respiratory rate 16 /min 16 /min [facility] ( [facility], [facility]) Oxygen saturation in Arterial blood by Pulse oximetry 97 % 97 % [facility] ([facility], [facility]) Body temperature 96.2 [degF] 96.2 [degF] [facility] ([facility], [facility]) Body weight 186.00 [lb_av] 186.00 [lb_av] MEDEN T ([facility], [facility]) Systolic blood pressure 111 mm[Hg] 111 mm[Hg] M EDENT ([facility]) Diastolic blood pressure 69 mm[Hg] 69 mm[Hg] [facility] ([facility]) Heart rate 87 /min 87 /min [facility] ([facility]) Body height 64 [in_i] 64 [in_i] [facility] ([facility]) 5'4" Body weight 189.00 [lb_av] 189.00 [lb_av] MEDEN T ([facility]) Body mass index (BMI) [Ratio] 32.4 kg/m2 32.4 k g/m2 [facility] ([facility]) Systolic blood pressure 120 mm[Hg] 120 mm[Hg] [facility] Diastolic blood pressure 70 mm[Hg] 70 mm[Hg] [facility] ([facility]) Heart rate 89 /min 89 /min [facility] ([facility]) Body height 64 [in_i] 64 [in_i] [facility] ([facility]) 5'4" Body weight 194.12 [lb_av] 194.12 [lb_av] MEDEN T ([facility]) Oxygen saturation in Arterial blood by Pulse oximetry 97 % 97 % [facility] Air Body mass index (BMI) [Ratio] 33.3 kg/m2 33.3 k g/m2 [facility] ([facility]) Diastolic blood pressure 82 mm[Hg] 82 mm[Hg] [facility] ([facility]) Heart rate 94 /min 94 /min [facility] ([facility]) Body weight 199.00 [lb_av] 199.00 [lb_av] MEDEN T ([facility]) Body height 64 [in_i] 64 [in_i] [facility] ([facility]) 5'4" Oxygen saturation in Arterial blood by Pulse oximetry 97 % 97 % [facility] ([facility]) Body mass index (BMI) [Ratio] 34.2 kg/m2 34.2 k g/m2 [facility] ([facility]) Systolic blood pressure 112 mm[Hg] 112 mm[Hg] [facility] Body temperature 98.6 [degF] 98.6 [degF] [facility] ([facility] ) Body height 62.5 [in_i] 62.5 [in_i] ISABELL ( [facility] ) 5'2.50" Body weight 195.12 [lb_av] 195.12 [lb_av] LEANNA Gregory ([facility] ) Body mass index (BMI) [Ratio] 35.1 kg/m2 35.1 k g/m2 ISABELL ([facility] )
[2020-12-30 21:21] LABS: BASO % 0.4 % (0.0-1.0); EOS # 0.3 10^3/uL (0.0-0.5); EOS % 4.3 % (0.0-3.0); HEMOGLOBIN 12.9 g/dl (13.5-17.5); LYMPH % 15.1 % (24.0-44.0); MEAN CORPUSCULAR HEMOGLOBIN 29.5 pg (27.0-33.0); MEAN CORPUSCULAR HGB CONC 33.1 g/dl (32.0-36.5); MONO # 0.9 10^3/uL (0.0-0.8); MONO % 12.7 % (2.0-8.0); NEUTROPHILS # 4.5 10^3/uL (1.5-8.5); NEUTROPHILS % 67.2 % (36.0-66.0); PLATELET COUNT, AUTOMATED 230 10^3/uL (150-450); RED BLOOD COUNT 4.38 10^6/uL (4.30-6.10); WHITE BLOOD COUNT 6.7 10^3/uL (4.0-10.0)
[2020-12-30 21:51] LABS: ALBUMIN 2.9 GM/DL (3.2-5.2); ALT/SGPT 22 U/L (12-78); BILIRUBIN,DIRECT 0.1 MG/DL (0.0-0.2); BILIRUBIN,TOTAL 0.3 MG/DL (0.2-1.0); BLOOD UREA NITROGEN 20 MG/DL (7-18); CALCIUM LEVEL 8.8 MG/DL (8.8-10.2); CARBON DIOXIDE LEVEL 24 MEQ/L (21-32); CHLORIDE LEVEL 106 MEQ/L (98-107); CK-MB VALUE MASS 4.3 NG/ML (<3.6); CPK CREATINE PHOSPHOKINASE 207 U/L (39-308); GLOMERULAR FILTRATION RATE 53.5 (>49); GLUCOSE, FASTING 118 MG/DL (70-100); LIPASE 137 U/L (73-393); MB/CK RELATIVE INDEX 2.08 (< OR =4); POTASSIUM SERUM 4.2 MEQ/L (3.5-5.1); SODIUM LEVEL 138 MEQ/L (136-145); TOTAL PROTEIN 6.7 GM/DL (6.4-8.2); TROPONIN I < 0.02 NG/ML (< 0.10)
[2020-12-30 23:30] VITALS: BP 160/79
--- NOTE | 2020-12-31 05:31 | ECGEPIP ---
[facility] - ED Test Date: 2020-12-30 Pat Name: JEWEL WILSON Department: Room: - Gender: Male Inspector Elevators: JColt : 1950 Requested By: CLIFF Terry Order Number: [id number] Reading MD: Eugene Garcia Measurements Intervals [place] Rate: 69 P: 48 W[place]: 128 QRS: 27 QRSD: 80 T: 30 QT: 418 QTc: 447 Interpretive Statements Normal sinus rhythm SIMILAR TO 08/16/15 Electronically Signed on 12-31-2020 5:30:46 EDT by Eugene Garcia
== END 2020-12-30 23:54 | disposition home or self-care (01) ==
LOC: M ED 17:29
DX: R33.9 Retention of urine, unspecified (principal); R56.9 Unspecified convulsions; G43.909 Migraine, unspecified, not intractable, without status migrainosus; N40.0 Benign prostatic hyperplasia without lower urinary tract symptoms; Z87.442 Personal history of urinary calculi; Z79.82 Long term (current) use of aspirin; Z79.899 Other long term (current) drug therapy; Z88.0 Allergy status to penicillin

== ENCOUNTER → 2021-02-04 | Outpatient (CLI) | payer MEDICARE, OTHER | LOC: M WUC 13:32 | PROVIDERS: ATTEND Urology | DX: R97.20 Elevated prostate specific antigen [PSA] (principal) ==

== ENCOUNTER → 2021-06-20 | Outpatient (CLI) | payer MEDICARE | LOC: M PLAIMG 13:31 | PROVIDERS: ATTEND Physician Assistant | DX: M51.36 Other intervertebral disc degeneration, lumbar region (principal) ==

== ENCOUNTER → 2021-10-08 | Outpatient (CLI) | payer MEDICARE ==
[2021-10-08 14:38] LABS: PLATELET COUNT, AUTOMATED 265 10^3/uL (150-450)
[2021-10-08 14:39] LABS: COLLAGEN EPINEPHRINE 94 SECONDS (74-162)
[2021-10-08 14:44] LABS: INR 0.95; PARTIAL THROMBOPLASTIN TIME 25.1 SECONDS (25.9-37.0); PROTHROMBIN TIME 13.1 SECONDS (12.7-14.5)
== END ==
LOC: M WUC 13:12
PROVIDERS: ATTEND Physician Assistant
DX: M51.16 Intervertebral disc disorders with radiculopathy, lumbar region (principal)

== ENCOUNTER → 2022-07-15 | Outpatient (CLI) | payer MEDICARE ==
[~2022-07-15] MED LIST changes: +GASTROGRAFIN SOLUTION 30ML As Ordered ONE; +ISOVUE-370 76% 100ML VIAL As Ordered ONE
== END ==
LOC: M RAD 13:38
PROVIDERS: ATTEND Family Medicine
DX: R10.13 Epigastric pain (principal); R63.4 Abnormal weight loss
CPT/HCPCS: 74170; Q9963; Q9967

== ENCOUNTER → 2022-08-14 | Outpatient (REF) | payer MEDICARE ==
[~2022-08-14] MED LIST changes: -GASTROGRAFIN SOLUTION 30ML As Ordered ONE; -ISOVUE-370 76% 100ML VIAL As Ordered ONE
[2022-08-14 17:34] LABS: APPEARANCE, URINE CLEAR (CLEAR); BACTERIA, URINE AUTO NEGATIVE (NEGATIVE); BILIRUBIN, URINE AUTO NEGATIVE (NEGATIVE); BLOOD, URINE BLOOD NEGATIVE (NEGATIVE); COLOR, URINE YELLOW (YELLOW); GLUCOSE, URINE (UA) AUTO NEGATIVE (NEGATIVE); KETONE, URINE AUTO NEGATIVE (NEGATIVE); LEUKOCYTE ESTERASE, URINE AUTO NEGATIVE (NEGATIVE); MUCUS, URINE SMALL (NEGATIVE); NITRITE, URINE AUTO NEGATIVE (NEGATIVE); PROTEIN, URINE AUTO NEGATIVE (NEGATIVE); RBC, URINE AUTO 0 /HPF (0-3); SPECIFIC GRAVITY URINE AUTO 1.025 (1.002-1.035); SQUAMOUS EPITHELIAL CELL UR AU 0 /HPF (0-6); UROBILINOGEN, URINE AUTO 0.2 mg/dL (0.0-2.0); WBC, URINE AUTO 1 /HPF (0-3)
== END ==
LOC: M SMT 17:06
PROVIDERS: ATTEND Physician Assistant
DX: R30.0 Dysuria (principal)

== ENCOUNTER → 2022-09-11 | Outpatient (REF) | payer MEDICARE ==
[2022-09-17 15:07] LABS: CALPROTECTIN STOOL 68 ug/g (0-120); PANCREATIC ELASTASE STOOL >500 (>200)
== END ==
LOC: M LAB REF 13:21
PROVIDERS: ATTEND Internal Medicine Gastroenterology
DX: R19.7 Diarrhea, unspecified (principal)

== ENCOUNTER → 2022-09-19 | Outpatient (CLI) | payer MEDICARE | LOC: M RAD 13:19 | PROVIDERS: ATTEND Physician Assistant | DX: Z87.442 Personal history of urinary calculi (principal); R97.20 Elevated prostate specific antigen [PSA] ==

== ENCOUNTER → 2022-09-24 | Outpatient (REF) | payer MEDICARE ==
[2022-09-24 18:33] LABS: AMORPHOUS SEDIMENT SMALL (NEGATIVE); APPEARANCE, URINE TURBID (CLEAR); BACTERIA, URINE AUTO 1+ (NEGATIVE); BILIRUBIN, URINE AUTO NEGATIVE (NEGATIVE); BLOOD, URINE BLOOD NEGATIVE (NEGATIVE); CALCIUM OXALATE CRYSTALS SMALL; COLOR, URINE AMBER (YELLOW); GLUCOSE, URINE (UA) AUTO NEGATIVE (NEGATIVE); KETONE, URINE AUTO TRACE mg/dL (NEGATIVE); LEUKOCYTE ESTERASE, URINE AUTO NEGATIVE (NEGATIVE); MUCUS, URINE LARGE (NEGATIVE); NITRITE, URINE AUTO NEGATIVE (NEGATIVE); PROTEIN, URINE AUTO 1+ mg/dL (NEGATIVE); RBC, URINE AUTO 0 /HPF (0-3); SPECIFIC GRAVITY URINE AUTO 1.033 (1.002-1.035); SQUAMOUS EPITHELIAL CELL UR AU 0 /HPF (0-6); WBC, URINE AUTO 0 /HPF (0-3)
== END ==
LOC: M SMT 17:26
PROVIDERS: ATTEND Physician Assistant
DX: R30.0 Dysuria (principal)

== ENCOUNTER → 2022-09-30 | Outpatient (CLI) | payer MEDICARE | LOC: M RAD 13:56 | PROVIDERS: ATTEND Physician Assistant | DX: R10.9 Unspecified abdominal pain (principal); N28.89 Other specified disorders of kidney and ureter ==

== ENCOUNTER → 2022-12-25 | Outpatient (REF) | payer MEDICARE ==
[2022-12-25 18:49] LABS: APPEARANCE, URINE CLOUDY (CLEAR); BACTERIA, URINE AUTO NEGATIVE (NEGATIVE); BILIRUBIN, URINE AUTO NEGATIVE (NEGATIVE); BLOOD, URINE BLOOD NEGATIVE (NEGATIVE); CALCIUM OXALATE CRYSTALS SMALL; COLOR, URINE AMBER (YELLOW); GLUCOSE, URINE (UA) AUTO NEGATIVE (NEGATIVE); GRANULAR CAST, URINE AUTO 18 /LPF; KETONE, URINE AUTO TRACE mg/dL (NEGATIVE); LEUKOCYTE ESTERASE, URINE AUTO TRACE (NEGATIVE); MUCUS, URINE SMALL (NEGATIVE); NITRITE, URINE AUTO NEGATIVE (NEGATIVE); PROTEIN, URINE AUTO 2+ mg/dL (NEGATIVE); RBC, URINE AUTO 4 /HPF (0-3); SPECIFIC GRAVITY URINE AUTO 1.027 (1.002-1.035); SQUAMOUS EPITHELIAL CELL UR AU 1 /HPF (0-6); WBC, URINE AUTO 5 /HPF (0-3)
== END ==
LOC: M SMT 17:17
PROVIDERS: ATTEND Physician Assistant
DX: R30.0 Dysuria (principal)

== ENCOUNTER 2023-09-28 11:31 | Day surgery (SDC) | payer MEDICARE ==
[~2023-09-28] VITALS: Ht 162.6 cm; Wt 78.0 kg
[~2023-09-28 11:31] MED LIST changes: +ACE65ERTAB PO; +DONE10TA90 PO
[2023-09-28] MEDS: NS 1,000 ML IV ONE (11:59)
[2023-09-28] MEDS ORDERED: fentaNYL 100 MCG/2 ML INJECTION As Ordered ONE (13:20)
[2023-09-28] MEDS ORDERED: LIDOCAINE 2% 100MG/5ML SDV (FOR ANES.) As Ordered ONE (13:20)
[2023-09-28] MEDS ORDERED: propofoL 500 MG/50 ML VIAL As Ordered ONE (13:20)
[2023-09-28 14:10] VITALS: BP 103/51; TEMP 97.9; O2SAT 94
== END 2023-09-28 14:17 | disposition home or self-care (01) ==
LOC: M OPP 11:31
PROVIDERS: ATTEND Internal Medicine Gastroenterology
DX: K64.0 First degree hemorrhoids (principal); K57.30 Diverticulosis of large intestine without perforation or abscess without bleeding; R19.7 Diarrhea, unspecified; R63.4 Abnormal weight loss; K22.89 Other specified disease of esophagus; K44.9 Diaphragmatic hernia without obstruction or gangrene; E11.9 Type 2 diabetes mellitus without complications; Z87.891 Personal history of nicotine dependence; Z79.1 Long term (current) use of non-steroidal anti-inflammatories (NSAID); Z79.82 Long term (current) use of aspirin; Z79.83 Long term (current) use of bisphosphonates; Z79.84 Long term (current) use of oral hypoglycemic drugs; Z79.811 Long term (current) use of aromatase inhibitors; Z79.899 Other long term (current) drug therapy; Z88.0 Allergy status to penicillin
CPT/HCPCS: 43239; 45380; 88305; J3010

== ENCOUNTER → 2023-12-24 | Outpatient (CLI) | payer MEDICARE | LOC: M SOG 07:33 | PROVIDERS: ATTEND Physician Assistant | DX: M25.511 Pain in right shoulder (principal) ==

== ENCOUNTER → 2024-03-01 | Outpatient (CLI) | payer MEDICARE | LOC: M RAD 15:09 | PROVIDERS: ATTEND Family Medicine | DX: R94.4 Abnormal results of kidney function studies (principal) ==

== ENCOUNTER → 2024-09-30 | Outpatient (CLI) | payer MEDICARE ==
[~2024-09-30] MED LIST changes: -FLOM0.4C39 PO; +TAMS-18 PO
[2024-09-30 13:16] LABS: BASO # 0.1 10^3/uL (0.0-0.2); BASO % 0.8 % (0.0-1.0); EOS # 1.3 10^3/uL (0.0-0.5); EOS % 16.4 % (0.0-3.0); LYMPH # 2.4 10^3/uL (1.5-5.0); LYMPH % 30.2 % (24.0-44.0); MONO # 0.6 10^3/uL (0.0-0.8); MONO % 7.9 % (2.0-8.0); NEUTROPHILS # 3.5 10^3/uL (1.5-8.5); NEUTROPHILS % 44.6 % (36.0-66.0); PLATELET COUNT, AUTOMATED 267 10^3/uL (150-450)
[2024-09-30 13:19] LABS: C REACTIVE PROTEIN QUANTITATIV < 0.50 MG/DL (<1.0)
[2024-09-30 13:21] LABS: ALT/SGPT 26 U/L (7.0-40); AST/SGOT 30 U/L (<34); CALCIUM LEVEL 9.5 MG/DL (8.3-10.6); CARBON DIOXIDE LEVEL 25 MMOL/L (20-31); CHLORIDE LEVEL 106 MMOL/L (98-107); CREATININE FOR GFR 1.57 MG/DL (0.70-1.30); GLOMERULAR FILTRATION RATE 46.5 (>42); POTASSIUM SERUM 4.6 MMOL/L (3.5-5.1); SODIUM LEVEL 145 MMOL/L (136-145)
== END ==
LOC: M PLALAB 10:12
PROVIDERS: ATTEND Internal Medicine Gastroenterology
DX: R19.7 Diarrhea, unspecified (principal); R63.4 Abnormal weight loss

== ENCOUNTER → 2024-10-12 | Outpatient (REF) | payer MEDICARE ==
[~2024-10-12] MED LIST changes: -ACE65ERTAB PO; +ACET-1593 PO
[2024-10-12 16:02] LABS: APPEARANCE, URINE HAZY (CLEAR); BACTERIA, URINE AUTO 3+ (NEGATIVE); BILIRUBIN, URINE AUTO NEGATIVE (NEGATIVE); BLOOD, URINE BLOOD NEGATIVE (NEGATIVE); GLUCOSE, URINE (UA) AUTO NEGATIVE (NEGATIVE); KETONE, URINE AUTO NEGATIVE (NEGATIVE); LEUKOCYTE ESTERASE, URINE AUTO 3+ (NEGATIVE); MUCUS, URINE SMALL (NEGATIVE); NITRITE, URINE AUTO NEGATIVE (NEGATIVE); PROTEIN, URINE AUTO NEGATIVE (NEGATIVE); RBC, URINE AUTO 15 /HPF (0-3); SPECIFIC GRAVITY URINE AUTO 1.016 (1.002-1.035); SQUAMOUS EPITHELIAL CELL UR AU 1 /HPF (0-6); UROBILINOGEN, URINE AUTO 0.2 mg/dL (0.0-2.0); WBC, URINE AUTO 99 /HPF (0-3)
== END ==
LOC: M SMT 14:59
PROVIDERS: ATTEND Physician Assistant
DX: R39.9 Unspecified symptoms and signs involving the genitourinary system (principal)

== ENCOUNTER → 2024-10-13 | Outpatient (CLI) | payer MEDICARE ==
[~2024-10-13] MED LIST changes: +ISOVUE-370 76% 100 ML VIAL ONE
== END ==
LOC: M PLAIMG 11:24
PROVIDERS: ATTEND Internal Medicine Gastroenterology
DX: R19.7 Diarrhea, unspecified (principal); R63.4 Abnormal weight loss; K76.89 Other specified diseases of liver; K57.30 Diverticulosis of large intestine without perforation or abscess without bleeding; K44.9 Diaphragmatic hernia without obstruction or gangrene
CPT/HCPCS: 74177; Q9967